=== PATIENT | male | born 1950 | race Caucasian/White ===

== ENCOUNTER → 2017-04-12 | Outpatient (CLI) | payer OTHER ==
[2017-04-12 13:00] LABS: BASO % 0.8 %; BASO ABS # 0.04 K/uL (0-0.2); COMPLETE YES; EOS % 4.9 %; HEMATOCRIT 43.3 % (42-52); IG% 0.6 %; LYMPH % 15.8 %; LYMPH ABS # 0.84 K/uL (1.2-3.4); MEAN CELL VOLUME 92.1 fL (80-100); MEAN CORPUSCULAR HEMOGLOBIN 32.1 pg (25-34); MEAN CORPUSCULAR HGB CONC 34.9 g/dl (32-36); MEAN PLATELET VOLUME 9.8 fL (7.4-10.4); MONO % 12.8 %; NEUT % 65.1 %; PLATELET COUNT 247 K/uL (130-400)
[2017-04-12 13:43] LABS: ALT/SGPT 51 U/L (12-78); AST/SGOT 31 U/L (15-37); BLOOD UREA NITROGEN 13 mg/dl (7-18); CALCIUM 8.8 mg/dl (8.5-10.1); CARBON DIOXIDE 26 mmol/L (21-32); CHLORIDE 110 mmol/L (98-107); GLUCOSE 121 mg/dl (70-99); POTASSIUM 4.6 mmol/L (3.5-5.1); SODIUM 141 mmol/L (136-145)
[2017-04-12 13:48] LABS: ALB/GLOB RATIO 0.9 (0.9-2); ALKALINE PHOSPHATASE 97 U/L (45-117); CHOLESTEROL 240 mg/dl (0-200); CHOLESTEROL/HDL RATIO 4.1; HDL CHOLESTEROL 58 mg/dl; LDL CHOLESTEROL CALCULATED 142 mg/dl; TRIGLYCERIDES 201 mg/dl (0-150); VERY LOW DENSITY LIPOPROT CALC 40 mg/dl
[2017-04-13 06:52] LABS: ESTIMATED AVERAGE GLUCOSE 117 mg/dl; HA1C FLAG Normal (Normal)
== END | disposition home or self-care (01) ==
LOC: C.LABPBG 07:56
PROVIDERS: ATTEND Internal Medicine
DX: E55.9 Vitamin D deficiency, unspecified (principal); C61 Malignant neoplasm of prostate

== ENCOUNTER 2017-08-03 10:36 | Inpatient (IN) | payer OTHER ==
[~2017-08-03] VITALS: Ht 177.8 cm; Wt 94.7 kg
--- NOTE | 2017-08-03 11:08 | EMERGENCY ROOM VISIT NOTE ---
History Report prepared by Mir: London Modi Under the Supervision of: Dr. Renzo Sanchez M.D. First contact with patient: 10:52 Chief Complaint: ABDOMINAL PAIN Stated Complaint: BELLY PAIN IN FRONT AND THEN MOVES TO SIDE Nursing Triage Summary: pt c/o bilat lower abd pain started last night. denies any n/v/d/c History of Present Illness The patient is a 67 year old male who presents to the Emergency Room with complaints of worsening abdominal pain starting yesterday morning. The patient states that he is having lower abdominal pain which started more in the middle, and it has now moved to his left side. He states that the pain is sometimes worse with walking, and he states that this pain started after drinking the dye before an MRI of his prostate. The patent denies of nausea, vomiting, urinary symptoms, recent trauma, rash, constipation, and diarrhea. The patient denies any history of kidney stones, diverticulitis, appendicitis, or any abdominal surgeries. He states that he drinks 4-5 beers per night. The patient denies any smoking, though he uses chewing tobacco. Source of History: patient Onset: yesterday morning Position: abdomen Timing: worsening Modifying Factors (Worsening): other (walking) Associated Symptoms: No nausea, No vomiting, No diarrhea, No urinary symptoms, No rash Review of Systems See HPI for pertinent positives & negatives. A total of 10 systems reviewed and were otherwise negative. Past Medical & Surgical Medical Problems: (1) Acute pancreatitis Social History Smoking Status: Never Smoker Marital Status: Housing Status: lives with family Occupation Status: employed Current/Historical Medications Scheduled Amlodipine (Norvasc), 10 MG PO DAILY Aspirin (Aspirin Ec), 81 MG PO DAILY Cholecalciferol (Vitamin D3), 1 TAB PO DAILY Omeprazole (Prilosec), 40 MG PO DAILY Valsartan (Diovan), 160 MG PO DAILY Allergies Coded Allergies: No Known Allergies (Unverified , 08/03/17) Physical Exam Vital Signs Date Time Temp Pulse Resp B/P (MAP) Pulse Ox O2 Delivery O2 Flow Rate FiO2 08/03/17 14:27 86 20 151/85 96 Room Air 08/03/17 11:47 77 20 148/96 95 Room Air 08/03/17 10:42 37.0 99 18 136/84 94 Room Air Physical Exam GENERAL: Patient is moderately uncomfortable appearing and in mild distress. HEENT: No acute trauma, normocephalic atraumatic, mucous membranes moist, no nasal congestion, no scleral icterus. NECK: No stridor, no adenopathy, no meningismus, trachea is midline. LUNGS: No dyspnea. Clear to auscultation and equal bilaterally. No wheeze, no rhonchi. HEART: Regular rate and rhythm. No murmurs, rubs, gallops appreciated. ABDOMEN: Soft, nontender, bowel sounds positive, no masses appreciated, no peritonitis. BACK: Mild left flank tenderness to palpation. No midline tenderness. EXTREMITIES: Normal motion all extremities, no cyanosis, no edema. NEUROLOGIC: Alert and oriented, no acute motor or sensory deficits, no focal weakness, cranial nerves grossly intact. SKIN: Mildly jaundice. No rash, no diaphoresis. Medical Decision & Procedures ER Provider Diagnostic Interpretation: Radiology results and stated below per my review and radiologist interpretation: ADDENDUM ADDITIONAL IMPRESSION: 6. Retroperitoneal lymphadenopathy. This is concerning either for metastatic disease in the setting of prostate cancer or other intra-abdominal malignancy versus a lymphoproliferative disease. The report will be called/faxed according to standard departmental protocol. Electronically signed by: Carlos Dover M.D. 08/03/2017 11:41 AM Dictated Date/Time: 08/03/2017 11:40 AM ORIGINAL REPORT ABD/PELVIS IV CONTRAST ONLY CLINICAL HISTORY: 67 years-old Male presenting with Left Flank Pain. TECHNIQUE: Multidetector CT of the abdomen and pelvis was performed after the administration of intravenous contrast. IV contrast: 93 mL of Optiray 320. A dose lowering technique was used consistent with the principles of ALARA (as low as reasonably achievable). COMPARISON: None. CT DOSE (mGy.cm): The estimated cumulative dose is 767.42 mGy.cm. FINDINGS: Second Class Welder topogram: Unremarkable. Lung bases: Dependent bandlike opacities likely atelectasis or scarring. Mild coronary artery calcification. Normal heart size. No pericardial or pleural effusion. Liver: Normal morphology. Hepatic steatosis. No focal lesion. Patent hepatic vasculature. Biliary: Mild intrahepatic and extra hepatic biliary ductal dilatation. Mild gallbladder wall thickening and mild gallbladder distention. Pancreas: Mild parenchymal atrophy. Mild peripancreatic fat stranding may be present. Spleen: Normal. Adrenal glands: Normal. Kidneys and ureters: Normal. No hydronephrosis. Bladder: Mild circumferential bladder wall thickening. Pelvic organs: Prostate enlargement likely secondary to benign prostatic hyperplasia. Bowel: Limited diverticulosis of the proximal sigmoid colon. Normal appendix. No bowel obstruction. Peritoneal cavity: Small amount of retroperitoneal fluid tracking along the bilateral anterior perianal spaces and peripancreatic region. Trace free intraperitoneal fluid in the superior pelvis. Lymph nodes: Multiple prominent pathologically enlarged left. Aortic lymph nodes, the largest measuring 16 mm in the short axis (series 3 image 262). Enlarged lymph nodes also noted in the peripancreatic and portacaval regions. Vasculature: Atherosclerosis of the normal caliber abdominal aorta. IVC patent. Abdominal wall: Small fat-containing of the hernia. Musculoskeletal: Degenerative changes of the spine. Bone island noted in the right femoral head. IMPRESSION: 1. Mild gallbladder wall thickening with mild distention. No significant pericholecystic fat stranding. These findings are not convincing for cholecystitis, and gallbladder wall thickening may be secondary to hepatic inflammation or another etiology. 2. Hepatic steatosis. Correlate with liver enzymes to exclude steatohepatitis. 3. Small retroperitoneal fluid which appears to track from the pancreatic region. Correlate with lipase to exclude pancreatitis. 4. No nephrolithiasis or hydronephrosis. 5. Mild circumferential bladder wall thickening, which could suggest chronic outlet obstruction or cystitis. Correlate with urinalysis. 6. Small amount of ascites, which may be reactive. Electronically signed by: Carlos Dover M.D. 08/03/2017 11:32 AM Dictated Date/Time: 08/03/2017 11:25 AM Laboratory Results 08/03/17 10:55 Red Blood Count 5.28, Mean Corpuscular Volume 91.3, Mean Corpuscular Hemoglobin 32.0, Mean Corpuscular Hemoglobin Concent 35.1, Mean Platelet Volume 9.8, Neutrophils (%) (Auto) 85.4, Lymphocytes (%) (Auto) 4.5, Monocytes (%) (Auto) 7.8, Eosinophils (%) (Auto) 1.8, Basophils (%) (Auto) 0.2, Neutrophils # (Auto) 10.73, Lymphocytes # (Auto) 0.57, Monocytes # (Auto) 0.98, Eosinophils # (Auto) 0.22, Basophils # (Auto) 0.02 08/03/17 10:55 Test 08/03/17 10:55 08/03/17 10:59 08/03/17 11:37 White Blood Count 12.56 K/uL (4.8-10.8) Red Blood Count 5.28 M/uL (4.7-6.1) Hemoglobin 16.9 g/dL (14.0-18.0) Hematocrit 48.2 % (42-52) Mean Corpuscular Volume 91.3 fL (80-100) Mean Corpuscular Hemoglobin 32.0 pg (25-34) Mean Corpuscular Hemoglobin Concent 35.1 g/dl (32-36) Platelet Count 262 K/uL (130-400) Mean Platelet Volume 9.8 fL (7.4-10.4) Neutrophils (%) (Auto) 85.4 % Lymphocytes (%) (Auto) 4.5 % Monocytes (%) (Auto) 7.8 % Eosinophils (%) (Auto) 1.8 % Basophils (%) (Auto) 0.2 % Neutrophils # (Auto) 10.73 K/uL (1.4-6.5) Lymphocytes # (Auto) 0.57 K/uL (1.2-3.4) Monocytes # (Auto) 0.98 K/uL (0.11-0.59) Eosinophils # (Auto) 0.22 K/uL (0-0.5) Basophils # (Auto) 0.02 K/uL (0-0.2) RDW Standard Deviation 43.6 fL (36.4-46.3) RDW Coefficient of Variation 13.1 % (11.5-14.5) Immature Granulocyte % (Auto) 0.3 % Immature Granulocyte # (Auto) 0.04 K/uL (0.00-0.02) Prothrombin Time 11.4 SECONDS (9.0-12.0) Prothromb Time International Ratio 1.1 (0.9-1.1) Est Creatinine Clear Calc Drug Dose 68.9 ml/min Estimated GFR () 70.3 Estimated GFR (Non- 60.6 BUN/Creatinine Ratio 10.3 (10-20) Calcium Level 9.2 mg/dl (8.5-10.1) Magnesium Level 2.5 mg/dl (1.8-2.4) Total Bilirubin 6.1 mg/dl (0.2-1) Direct Bilirubin 4.3 mg/dl (0-0.2) Aspartate Amino Transf (AST/SGOT) 558 U/L (15-37) Alanine Aminotransferase (ALT/SGPT) 589 U/L (12-78) Alkaline Phosphatase 241 U/L (45-117) Total Protein 8.3 gm/dl (6.4-8.2) Albumin 3.6 gm/dl (3.4-5.0) Lipase 86284 U/L (73-393) Bedside Hemoglobin 17.3 g/dl (14.0-18.0) Bedside Hematocrit 51 % (42-52) Bedside Sodium 140 mEq/L (135-144) Bedside Potassium 4.1 mEq/L (3.3-5.0) Bedside Chloride 104 mEq/L (101-112) Bedside Total CO2 24 mEq/l (24-31) Anion Gap 18.0 mmol/L (16-25) Bedside Blood Urea Nitrogen 14 mg/dl (7-18) Bedside Creatinine 1.1 mg/dl (0.6-1.3) Bedside Glucose (other) 142 mg/dl (70-99) Bedside Ionized Calcium (Jennifer) 1.17 mmol/l (1.12-1.32) Urine Color DK YELLOW Urine Appearance CLEAR (CLEAR) Urine pH 7.0 (4.5-7.5) Urine Specific [place] 1.037 (1.000-1.030) Urine Protein 1+ (NEG) Urine Glucose (UA) NEG (NEG) Urine Ketones TRACE (NEG) Urine Occult Blood NEG (NEG) Urine Nitrite POS (NEG) Urine Bilirubin 2+ (NEG) Urine Urobilinogen NEG (NEG) Urine Leukocyte Esterase TRACE (NEG) Urine WBC (Auto) 1-5 /hpf (0-5) Urine RBC (Auto) 0-4 /hpf (0-4) Urine Hyaline Casts (Auto) 0 /lpf (0-5) Urine Epithelial Cells (Auto) 0-5 /lpf (0-5) Urine Bacteria (Auto) NEG (NEG) Laboratory results as reviewed by me. Medications Administered Medications (Trade) Dose Ordered Sig/Elyse Route Start Time Stop Time Status Last Admin Dose Admin Sodium Chloride 1,000 ml @ 75 mls/hr [id number] STAT IV 08/03/17 11:48 08/04/17 01:07 08/03/17 12:06 75 MLS/HR Cefoxitin Sodium 2000 mg/Dextrose 60 ml @ 120 mls/hr 1200 ONCE IV 08/03/17 12:00 08/03/17 12:29 DC 08/03/17 12:06 120 MLS/HR ED Course 1052: The patient was evaluated in room C5. A complete history and physical exam was performed. 1135: I reevaluated the patient and discussed the treatment plan with him. 1140: Discussed the patient's case with Dr. Ocampo. The patient will be evaluated for further treatment and disposition. 1148: Sodium Chloride 1000 ml @ 75 mls/hr IV 1200: Cefoxitin Sodium 2000mg/ Dextrose 60ml @ 120mls/hr IV 1254: I discussed the patient's case with LIANE Neal, and he is going to talk to the hospitalist. Medical Decision Differential: Renal Colic, Pyelonephritis, Hydronephrosis, Appendicitis, Diverticulitis, Retroperitoneal Bleed/Infection, Aortic Pathology, MSK, Neurologic Pathology, amongst other pathologies entertained. 67 yr old male with central abdominal pain yesterday now with left flank discomfort. CT with pancreatitis and some fluid retroperitoneal consistent with this. Labs consistent with pancreatitis as well as hepatitis. Admits regular ETOH use. Mild WBC elevation and with possible GB/biliary issue will empirically give abx. He doesn't require pain medications though with constilation of findings will need to come in for further evaluation. No hypotension nor anemia nor other evidence to suggest this is blood in retroperitoneal. No abscess appreciated. The lymphadenopathy on CT was read after already discussed findings with patient and hospitalist involved. Obviously CA concern and with pancreatic abnormalities, jaundice and lymph nodes will clearly need further CA work-up and will defer to hospitalist. Patient stable throughout ED stay. Medication Reconcilliation Current Medication List: was personally reviewed by me Blood Pressure Screening Patient's blood pressure: Elevated blood pressure Monitored by the hospitalist. Consults Time Called: 1123 Consulting Physician: Dr. Ocampo Returned Call: [phone] Discussed the patient's case with Dr. Ocampo. The patient will be evaluated for further treatment and disposition. Additional Consults: Time Called: 1233 Consulted Physician: LIANE Neal Returned Call: [phone] Additional Comments: I discussed the patient's case with LIANE Neal, and he is going to talk to the hospitalist. Impression Primary Impression: Pancreatitis Additional Impressions: Retroperitoneal fluid collection Abdominal lymphadenopathy Scribe Attestation The scribe's documentation has been prepared under my direction and personally reviewed by me in its entirety. I confirm that the note above accurately reflects all work, treatment, procedures, and medical decision making performed by me. Departure Information Dispostion Being Evaluated By Hospitalist Referrals Carlos Bojorquez M.D. (PCP) Patient Instructions My [facility] Problem Qualifiers
[2017-08-03 11:11] LABS: ISTAT CREATININE 1.1 mg/dl (0.6-1.3); ISTAT HEMOGLOBIN 17.3 g/dl (14.0-18.0); ISTAT IONIZED CALCIUM 1.17 mmol/l (1.12-1.32)
[2017-08-03] MEDS ORDERED: OPTIRAY 320 IV PRN (11:15)
[2017-08-03 11:16] LABS: BASO % 0.2 %; BASO ABS # 0.02 K/uL (0-0.2); COMPLETE YES; EOS % 1.8 %; HEMATOCRIT 48.2 % (42-52); IG% 0.3 %; LYMPH % 4.5 %; LYMPH ABS # 0.57 K/uL (1.2-3.4); MEAN CELL VOLUME 91.3 fL (80-100); MEAN CORPUSCULAR HGB CONC 35.1 g/dl (32-36); MEAN PLATELET VOLUME 9.8 fL (7.4-10.4); MONO % 7.8 %; NEUT % 85.4 %; PLATELET COUNT 262 K/uL (130-400); RED BLOOD COUNT 5.28 M/uL (4.7-6.1); WHITE BLOOD COUNT 12.56 K/uL (4.8-10.8)
[2017-08-03] MEDS ORDERED: AMLO-114 PO (11:19)
[2017-08-03] MEDS ORDERED: CHOL1000 PO (11:19)
[2017-08-03] MEDS ORDERED: OMEP40CA41 PO (11:19)
[2017-08-03] MEDS ORDERED: ASPI81TA28 PO (11:19)
[2017-08-03] MEDS ORDERED: DVN/160 PO (11:19)
[2017-08-03 11:32] LABS: BUN/CREATININE RATIO 10.3 (10-20); CALCIUM 9.2 mg/dl (8.5-10.1); CREATININE 1.24 mg/dl (0.60-1.40)
--- NOTE | 2017-08-03 11:34 | DIAGNOSTIC IMAGING REPORT ---
ADDENDUM ADDITIONAL IMPRESSION: 6. Retroperitoneal lymphadenopathy. This is concerning either for metastatic disease in the setting of prostate cancer or other intra-abdominal malignancy versus a lymphoproliferative disease. The report will be called/faxed according to standard departmental protocol. Electronically signed by: Carlos Dover M.D. 08/03/2017 11:41 AM Dictated Date/Time: 08/03/2017 11:40 AM ORIGINAL REPORT ABD/PELVIS IV CONTRAST ONLY CLINICAL HISTORY: 67 years-old Male presenting with Left Flank Pain. TECHNIQUE: Multidetector CT of the abdomen and pelvis was performed after the administration of intravenous contrast. IV contrast: 93 mL of Optiray 320. A dose lowering technique was used consistent with the principles of ALARA (as low as reasonably achievable). COMPARISON: None. CT DOSE (mGy.cm): The estimated cumulative dose is 767.42 mGy.cm. FINDINGS: Drafter Structural topogram: Unremarkable. Lung bases: Dependent bandlike opacities likely atelectasis or scarring. Mild coronary artery calcification. Normal heart size. No pericardial or pleural effusion. Liver: Normal morphology. Hepatic steatosis. No focal lesion. Patent hepatic vasculature. Biliary: Mild intrahepatic and extra hepatic biliary ductal dilatation. Mild gallbladder wall thickening and mild gallbladder distention. Pancreas: Mild parenchymal atrophy. Mild peripancreatic fat stranding may be present. Spleen: Normal. Adrenal glands: Normal. Kidneys and ureters: Normal. No hydronephrosis. Bladder: Mild circumferential bladder wall thickening. Pelvic organs: Prostate enlargement likely secondary to benign prostatic hyperplasia. Bowel: Limited diverticulosis of the proximal sigmoid colon. Normal appendix. No bowel obstruction. Peritoneal cavity: Small amount of retroperitoneal fluid tracking along the bilateral anterior perianal spaces and peripancreatic region. Trace free intraperitoneal fluid in the superior pelvis. Lymph nodes: Multiple prominent pathologically enlarged left. Aortic lymph nodes, the largest measuring 16 mm in the short axis (series 3 image 262). Enlarged lymph nodes also noted in the peripancreatic and portacaval regions. Vasculature: Atherosclerosis of the normal caliber abdominal aorta. IVC patent. Abdominal wall: Small fat-containing of the hernia. Musculoskeletal: Degenerative changes of the spine. Bone island noted in the right femoral head. IMPRESSION: 1. Mild gallbladder wall thickening with mild distention. No significant pericholecystic fat stranding. These findings are not convincing for cholecystitis, and gallbladder wall thickening may be secondary to hepatic inflammation or another etiology. 2. Hepatic steatosis. Correlate with liver enzymes to exclude steatohepatitis. 3. Small retroperitoneal fluid which appears to track from the pancreatic region. Correlate with lipase to exclude pancreatitis. 4. No nephrolithiasis or hydronephrosis. 5. Mild circumferential bladder wall thickening, which could suggest chronic outlet obstruction or cystitis. Correlate with urinalysis. 6. Small amount of ascites, which may be reactive. Electronically signed by: Carlos Dover M.D. 08/03/2017 11:32 AM Dictated Date/Time: 08/03/2017 11:25 AM
[2017-08-03] MEDS ORDERED: CEFOXITIN 2000MG/60 ML D5W IV STA (11:40)
[2017-08-03] MEDS ORDERED: SODIUM CHLORIDE 0.9% 1000ML 1,000 ML IV STA (11:48)
[2017-08-03 11:52] LABS: URINE APPEARANCE CLEAR (CLEAR); URINE COLOR DK YELLOW; URINE EPITHELIAL CELL AUTO 0-5 /lpf (0-5); URINE NITRITE POS (NEG); URINE SPECIFIC GRAVITY 1.037 (1.000-1.030); UROBILINOGEN NEG (NEG); ZZUR CULT IF INDIC CLEAN CATCH NO
[2017-08-03 11:59] LABS: MANUAL MICROSCOPIC REQUIRED? NO; REVIEW REQ? NO; URINE BILIRUBIN 2+ (NEG)
[2017-08-03] MEDS ORDERED: CEFOXITIN IV 2,000 MG in DEXTROSE 5% 50ML 50 ML IV ONE (12:00)
[2017-08-03 13:17] LABS: INR 1.1 (0.9-1.1); PROTHROMBIN TIME (PATIENT) 11.4 SECONDS (9.0-12.0)
[2017-08-03] MEDS ORDERED: SODIUM CHLORIDE 0.9% 1000ML 1,000 ML IV ONE (13:30)
[2017-08-03] MEDS ORDERED: LACTATED RINGER'S 1000ML 1,000 ML IV ONE ×2 (13:45→15:00)
--- NOTE | 2017-08-03 14:03 | History and Physical ---
History & Physical Date & Time of Service: Aug 03, 2017 at 14:02 Chief Complaint: Belly Pain In Front And Then Moves To Side Primary Care Physician: Carlos Bojorquez M.D. History of Present Illness Source: patient, family, spouse 67 year old male with history of abdominal pain in the past 24 hours, which has gradually been worsening. Pain is severe, sharp, constant, periumbilical and radiates to the back. Patient reports that the last time patient ate was on . Patient states that he drinks alcohol daily and has about a 6-pack of 12 onz. beers daily. This has been ongoing for years Patient had nausea and vomiting on Saturday. Pain worsened today and patient opted to come to hospital. Patient denies any hematemesis, melena, dizziness Past Medical/Surgical History 1) Alcohol abuse Family History non-contributory Social History Smoking Status: Never Smoker (Patient chews tobacoo) Smokeless Tobacco Use: Yes (chews smokeless tobacco) Marital Status: Occupational Status: employed Immunizations History of Influenza Vaccine: Unknown History of Tetanus Vaccine?: Unknown History of Pneumococcal: Unknown History of Hepatitis B Vaccine: Unknown Multi-Drug Resistant Organisms History of MDRO: No Allergies Coded Allergies: No Known Allergies (Unverified , 08/03/17) Home Medications Scheduled Amlodipine (Norvasc), 10 MG PO DAILY Aspirin (Aspirin Ec), 81 MG PO DAILY Cholecalciferol (Vitamin D3), 1 TAB PO DAILY Omeprazole (Prilosec), 40 MG PO DAILY Valsartan (Diovan), 160 MG PO DAILY Review of Systems Constitutional: No fever, No chills Eyes: No worsening of vision Respiratory: No cough, No sputum Cardiovascular: No chest pain Abdomen: + pain, + nausea, + vomiting Musculoskeletal: No joint pain Neurologic: No memory loss, No paralysis Endocrine: No fatigue Integumentary: No rash, No itch Physical Exam Vital Signs Date Time Temp Pulse Resp B/P (MAP) Pulse Ox O2 Delivery O2 Flow Rate FiO2 08/03/17 11:47 77 20 148/96 95 Room Air 08/03/17 10:42 37.0 99 18 136/84 94 Room Air General Appearance: WD/WN, no apparent distress Head: normocephalic, atraumatic Eyes: + pertinent finding (jaundiced sclerae) Neck: supple, no adenopathy, thyroid normal Respiratory/Chest: chest non-tender, lungs clear, normal breath sounds Cardiovascular: regular rate, rhythm, no edema Abdomen/GI: normal bowel sounds, non tender, soft Skin: normal color Lymphatic: no adenopathy Diagnostics Laboratory Results Results Past 24 Hours Test 08/03/17 10:55 08/03/17 10:59 08/03/17 11:37 Range/Units White Blood Count 12.56 4.8-10.8 K/uL Red Blood Count 5.28 4.7-6.1 M/uL Hemoglobin 16.9 14.0-18.0 g/dL Hematocrit 48.2 42-52 % Mean Corpuscular Volume 91.3 80-100 fL Mean Corpuscular Hemoglobin 32.0 25-34 pg Mean Corpuscular Hemoglobin Concent 35.1 32-36 g/dl Platelet Count 262 130-400 K/uL Mean Platelet Volume 9.8 7.4-10.4 fL Neutrophils (%) (Auto) 85.4 % Lymphocytes (%) (Auto) 4.5 % Monocytes (%) (Auto) 7.8 % Eosinophils (%) (Auto) 1.8 % Basophils (%) (Auto) 0.2 % Neutrophils # (Auto) 10.73 1.4-6.5 K/uL Lymphocytes # (Auto) 0.57 1.2-3.4 K/uL Monocytes # (Auto) 0.98 0.11-0.59 K/uL Eosinophils # (Auto) 0.22 0-0.5 K/uL Basophils # (Auto) 0.02 0-0.2 K/uL RDW Standard Deviation 43.6 36.4-46.3 fL RDW Coefficient of Variation 13.1 11.5-14.5 % Immature Granulocyte % (Auto) 0.3 % Immature Granulocyte # (Auto) 0.04 0.00-0.02 K/uL Prothrombin Time 11.4 9.0-12.0 SECONDS Prothromb Time International Ratio 1.1 0.9-1.1 Sodium Level 138 136-145 mmol/L Potassium Level 4.0 3.5-5.1 mmol/L Chloride Level 106 98-107 mmol/L Carbon Dioxide Level 23 21-32 mmol/L Anion Gap 9.0 18.0 16-25 mmol/L Blood Urea Nitrogen 13 7-18 mg/dl Creatinine 1.24 0.60-1.40 mg/dl Est Creatinine Clear Calc Drug Dose 68.9 ml/min Estimated GFR () 70.3 Estimated GFR (Non- 60.6 BUN/Creatinine Ratio 10.3 10-20 Random Glucose 136 70-99 mg/dl Calcium Level 9.2 8.5-10.1 mg/dl Total Bilirubin 6.1 0.2-1 mg/dl Direct Bilirubin 4.3 0-0.2 mg/dl Aspartate Amino Transf (AST/SGOT) 558 15-37 U/L Alanine Aminotransferase (ALT/SGPT) 589 12-78 U/L Alkaline Phosphatase 241 45-117 U/L Total Protein 8.3 6.4-8.2 gm/dl Albumin 3.6 3.4-5.0 gm/dl Lipase 73716 73-393 U/L Bedside Hemoglobin 17.3 14.0-18.0 g/dl Bedside Hematocrit 51 42-52 % Bedside Sodium 140 135-144 mEq/L Bedside Potassium 4.1 3.3-5.0 mEq/L Bedside Chloride 104 101-112 mEq/L Bedside Total CO2 24 24-31 mEq/l Bedside Blood Urea Nitrogen 14 7-18 mg/dl Bedside Creatinine 1.1 0.6-1.3 mg/dl Bedside Glucose (other) 142 70-99 mg/dl Bedside Ionized Calcium (Jennifer) 1.17 1.12-1.32 mmol/l Urine Color DK YELLOW Urine Appearance CLEAR CLEAR Urine pH 7.0 4.5-7.5 Urine Specific [place] 1.037 1.000-1.030 Urine Protein 1+ NEG Urine Glucose (UA) NEG NEG Urine Ketones TRACE NEG Urine Occult Blood NEG NEG Urine Nitrite POS NEG Urine Bilirubin 2+ NEG Urine Urobilinogen NEG NEG Urine Leukocyte Esterase TRACE NEG Urine WBC (Auto) 1-5 0-5 /hpf Urine RBC (Auto) 0-4 0-4 /hpf Urine Hyaline Casts (Auto) 0 0-5 /lpf Urine Epithelial Cells (Auto) 0-5 0-5 /lpf Urine Bacteria (Auto) NEG NEG Diagnostic Radiology ADDENDUM ADDITIONAL IMPRESSION: 6. Retroperitoneal lymphadenopathy. This is concerning either for metastatic disease in the setting of prostate cancer or other intra-abdominal malignancy versus a lymphoproliferative disease. The report will be called/faxed according to standard departmental protocol. Electronically signed by: Carlos Dover M.D. 08/03/2017 11:41 AM Dictated Date/Time: 08/03/2017 11:40 AM ORIGINAL REPORT ABD/PELVIS IV CONTRAST ONLY CLINICAL HISTORY: 67 years-old Male presenting with Left Flank Pain. TECHNIQUE: Multidetector CT of the abdomen and pelvis was performed after the administration of intravenous contrast. IV contrast: 93 mL of Optiray 320. A dose lowering technique was used consistent with the principles of ALARA (as low as reasonably achievable). COMPARISON: None. CT DOSE (mGy.cm): The estimated cumulative dose is 767.42 mGy.cm. FINDINGS: Acrylic Fabricator topogram: Unremarkable. Lung bases: Dependent bandlike opacities likely atelectasis or scarring. Mild coronary artery calcification. Normal heart size. No pericardial or pleural effusion. Liver: Normal morphology. Hepatic steatosis. No focal lesion. Patent hepatic vasculature. Biliary: Mild intrahepatic and extra hepatic biliary ductal dilatation. Mild gallbladder wall thickening and mild gallbladder distention. Pancreas: Mild parenchymal atrophy. Mild peripancreatic fat stranding may be present. Spleen: Normal. Adrenal glands: Normal. Kidneys and ureters: Normal. No hydronephrosis. Bladder: Mild circumferential bladder wall thickening. Pelvic organs: Prostate enlargement likely secondary to benign prostatic hyperplasia. Bowel: Limited diverticulosis of the proximal sigmoid colon. Normal appendix. No bowel obstruction. Peritoneal cavity: Small amount of retroperitoneal fluid tracking along the bilateral anterior perianal spaces and peripancreatic region. Trace free intraperitoneal fluid in the superior pelvis. Lymph nodes: Multiple prominent pathologically enlarged left. Aortic lymph nodes, the largest measuring 16 mm in the short axis (series 3 image 262). Enlarged lymph nodes also noted in the peripancreatic and portacaval regions. Vasculature: Atherosclerosis of the normal caliber abdominal aorta. IVC patent. Abdominal wall: Small fat-containing of the hernia. Musculoskeletal: Degenerative changes of the spine. Bone island noted in the right femoral head. IMPRESSION: 1. Mild gallbladder wall thickening with mild distention. No significant pericholecystic fat stranding. These findings are not convincing for cholecystitis, and gallbladder wall thickening may be secondary to hepatic inflammation or another etiology. 2. Hepatic steatosis. Correlate with liver enzymes to exclude steatohepatitis. 3. Small retroperitoneal fluid which appears to track from the pancreatic region. Correlate with lipase to exclude pancreatitis. 4. No nephrolithiasis or hydronephrosis. 5. Mild circumferential bladder wall thickening, which could suggest chronic outlet obstruction or cystitis. Correlate with urinalysis. 6. Small amount of ascites, which may be reactive. Electronically signed by: Carlos Dover M.D. 08/03/2017 11:32 AM Dictated Date/Time: 08/03/2017 11:25 AM The status of this report is Signed. Draft = Not yet reviewed or approved by Radiologist. Signed = Reviewed and approved by Radiologist. <AttendingPhy></AttendingPhy> <FamilyPhy>Carlos Bojorquez M.D.</FamilyPhy> < PrimaryPhy>Carlos Bojorquez M.D.</PrimaryPhy> <UnitNumber>[id number]</UnitNumber> <VisitNumber>[id number]</VisitNumber Impression Assessment and Plan Acute pancreatitis in a 67 year old male with hisotry of alcohol abuse. Admit to tele. [place] score is 5. will give aggressive fluids with goal of .5 to 1ml/k/hr of urine will have patient NPO. monitor I's and O'S no need for antibiotics at this time. Consulted GI. Obtaind MRCP which was negative. Alcohol abuse CIWA scale on patient. HTN will hold oral meds and will have patient on PRN Labetalol Level of Care Telemetry Advanced Directives Existing Advance Directive: No Existing Living Will: No Existing Power of Maintenance Director: No Existing Health Care Proxy: No Resuscitation Status FULL RESUSCITATION VTE Prophylaxis VTE Risk Assessment Done? Y/N: Yes Risk Level: Moderate Given or contraindicated: Enoxaparin (Lovenox)SQ Social Service Consult Lives in Personal Care
--- NOTE | 2017-08-03 15:02 | Gastrointestinal Consultation ---
Gastrointestinal Consultation Date of Consultation: Aug 03, 2017 Attending Physician: DR Simon Ocampo Consulting Physician: Dr Cheko Salomon Reason for Consultation: hepatitis and pancreatitis History of Present Illness Patient is a 67 year old male with CC of abd pain. HPI with patient. Pt drinks 4-5 beers/day and more on weekends. No data in [facility] chart. Data in [facility] EMR shows LFTS done 04/12/17 normal. Pt recent diagnosis of prostate cancer apparently small amount on biopsy. Pt yesterday am developed abd pain. Came on quickly and persisted. Was around umbilicus then lower abd pain. Was up to 7-8/ . Some cough today. No n/v. In ER CBC showed WBC 12.56 o/w normal. Lipase 17,965. CMP TB 6.1, AST 558, ALT 589, Alk phos 241. PT INR normal. CT A/P retroperitoneal adenopathy concerning for mets, fatty liver, mildly dilated bile duct, mild GB thickening, fat stranding of pancreas, diverticulosis, bladder thickening, small ascites. MRCP done with results pending. Past Medical/Surgical History Medical Problems: (1) Abdominal lymphadenopathy Status: Acute (2) Pancreatitis Status: Acute (3) Retroperitoneal fluid collection Status: Acute Family History no pancreas or liver problems per patient Social History Smoking Status: Never Smoker Alcohol Use: other (4-5/day and heavier on weekends) Marital Status: Housing Status: lives with family Occupation Status: employed Allergies Coded Allergies: No Known Allergies (Unverified , 08/03/17) Current Medications Home Meds and Scripts Medications Dose Route/Sig Max Daily Dose Days Date Category Vitamin D3 (Cholecalciferol) Unknown Strength Tab 1 Tab PO DAILY 90 08/03/17 Reported Diovan (Valsartan) 160 Mg Tab 160 Mg PO DAILY 08/03/17 Reported Prilosec (Omeprazole) 40 Mg Cap 40 Mg PO DAILY 08/03/17 Reported Aspirin Ec (Aspirin) 81 Mg Tab 81 Mg PO DAILY 08/03/17 Reported Norvasc (Amlodipine Besylate) 10 Mg Tab 10 Mg PO DAILY 08/03/17 Reported Review of Systems See HPI. Otherwise 10 ROS negative Physical Exam Date Time Temp Pulse Resp B/P (MAP) Pulse Ox O2 Delivery O2 Flow Rate FiO2 08/03/17 14:27 86 20 151/85 96 Room Air 08/03/17 11:47 77 20 148/96 95 Room Air 08/03/17 10:42 37.0 99 18 136/84 94 Room Air General Appearance: WD/WN, no apparent distress Eyes: PERRL ENT: hearing grossly normal, pharynx normal Neck: supple, trachea midline Respiratory/Chest: lungs clear, no respiratory distress Cardiovascular: regular rate, rhythm, no edema Abdomen: normal bowel sounds, soft, no organomegaly, no pulsatile mass, + tenderness (epigastric guarding but no rebound, ) Extremities: non-tender, normal inspection Neurologic/Psych: branch director II-XII nml as tested, alert, normal mood/affect, oriented x 3 Skin: normal color, no rash Laboratory Results Last 24 Hours Test 08/03/17 10:55 08/03/17 10:59 08/03/17 11:37 White Blood Count 12.56 K/uL Red Blood Count 5.28 M/uL Hemoglobin 16.9 g/dL Hematocrit 48.2 % Mean Corpuscular Volume 91.3 fL Mean Corpuscular Hemoglobin 32.0 pg Mean Corpuscular Hemoglobin Concent 35.1 g/dl Platelet Count 262 K/uL Mean Platelet Volume 9.8 fL Neutrophils (%) (Auto) 85.4 % Lymphocytes (%) (Auto) 4.5 % Monocytes (%) (Auto) 7.8 % Eosinophils (%) (Auto) 1.8 % Basophils (%) (Auto) 0.2 % Neutrophils # (Auto) 10.73 K/uL Lymphocytes # (Auto) 0.57 K/uL Monocytes # (Auto) 0.98 K/uL Eosinophils # (Auto) 0.22 K/uL Basophils # (Auto) 0.02 K/uL RDW Standard Deviation 43.6 fL RDW Coefficient of Variation 13.1 % Immature Granulocyte % (Auto) 0.3 % Immature Granulocyte # (Auto) 0.04 K/uL Prothrombin Time 11.4 SECONDS Prothromb Time International Ratio 1.1 Sodium Level 138 mmol/L Potassium Level 4.0 mmol/L Chloride Level 106 mmol/L Carbon Dioxide Level 23 mmol/L Anion Gap 9.0 mmol/L 18.0 mmol/L Blood Urea Nitrogen 13 mg/dl Creatinine 1.24 mg/dl Est Creatinine Clear Calc Drug Dose 68.9 ml/min Estimated GFR () 70.3 Estimated GFR (Non- 60.6 BUN/Creatinine Ratio 10.3 Random Glucose 136 mg/dl Calcium Level 9.2 mg/dl Magnesium Level 2.5 mg/dl Total Bilirubin 6.1 mg/dl Direct Bilirubin 4.3 mg/dl Aspartate Amino Transf (AST/SGOT) 558 U/L Alanine Aminotransferase (ALT/SGPT) 589 U/L Alkaline Phosphatase 241 U/L Total Protein 8.3 gm/dl Albumin 3.6 gm/dl Lipase 51749 U/L Bedside Hemoglobin 17.3 g/dl Bedside Hematocrit 51 % Bedside Sodium 140 mEq/L Bedside Potassium 4.1 mEq/L Bedside Chloride 104 mEq/L Bedside Total CO2 24 mEq/l Bedside Blood Urea Nitrogen 14 mg/dl Bedside Creatinine 1.1 mg/dl Bedside Glucose (other) 142 mg/dl Bedside Ionized Calcium (Jennifer) 1.17 mmol/l Urine Color DK YELLOW Urine Appearance CLEAR Urine pH 7.0 Urine Specific [place] 1.037 Urine Protein 1+ Urine Glucose (UA) NEG Urine Ketones TRACE Urine Occult Blood NEG Urine Nitrite POS Urine Bilirubin 2+ Urine Urobilinogen NEG Urine Leukocyte Esterase TRACE Urine WBC (Auto) 1-5 /hpf Urine RBC (Auto) 0-4 /hpf Urine Hyaline Casts (Auto) 0 /lpf Urine Epithelial Cells (Auto) 0-5 /lpf Urine Bacteria (Auto) NEG Impression Pancreatitis--could be from ETOH but check MRCP for bile duct pathology, check Triglyceride level, NPO, Discussed with Dr Isidro very important to give large volumes of IVF to ensure urine output of 0.5 ml/kg/hour or better (50 ml/ hour) to help prevent necrotizing pancreatitis. Discussed with him also that LR may be somewhat better than NS. elevated LFTS--could be alcoholic hepatitis, also would check CMV, mono, acute hep panel, check stat acetaminophen level retroperitoneal adenopathy--no primary cancer noted on CT scan, see what MRI shows. ascites--not enough to tap prostate cancer--MRI of prostate 07/30 no obvious mass so would be less likely thsi is cause of retroperitoneal adenopathy---w/u per primary team. .
--- NOTE | 2017-08-03 16:10 | DIAGNOSTIC IMAGING REPORT ---
MRCP CLINICAL HISTORY: 67 years-old Male presenting with alcohol hepatitis, nausea and vomiting, abdominal pain. TECHNIQUE: Multisequence, multiplanar MR imaging of the abdomen was performed without the use of intravenous contrast. IV contrast: None. COMPARISON: CT performed earlier the same day. FINDINGS: Localizer images: Unremarkable. Lung bases: Minimal dependent changes. Normal heart size. No pericardial or pleural effusion. Liver: Normal morphology. Biliary: The right anterior hepatic duct inserts onto the left hepatic duct for joining subsequently with the right posterior hepatic duct. Conventional insertion of the cystic duct. Mild intrahepatic and extra hepatic biliary ductal dilatation. The common duct measures 12 mm at the level of the midportion. No obstructing calculus or mass. Mild gallbladder wall thickening and mild gallbladder distention. No gallstones. Pancreas: Mild parenchymal atrophy. Mild prominence of the pancreatic duct at the level of the pancreatic head and neck. Trace peripancreatic fat stranding may be present. Spleen: Normal. Adrenal glands: Normal. Kidneys and ureters: Normal. No hydronephrosis. Bowel: No bowel obstruction. Peritoneal cavity: Small amount of retroperitoneal fluid. Lymph nodes: Multiple prominent pathologically enlarged left periaortic lymph nodes. Vasculature: Aorta and IVC with normal flow related enhancement. Abdominal wall: Unremarkable. Musculoskeletal: Normal bone marrow signal intensity. IMPRESSION: 1. Grossly normal appearance of the liver allowing for noncontrast technique. This does not exclude the diagnosis of hepatitis. 2. Gallbladder wall thickening likely secondary to the reported alcohol hepatitis. 3. No cholelithiasis or choledocholithiasis. 4. Intrahepatic and hepatic biliary ductal dilatation with mild pancreatic ductal prominence. No obstructing calculus or mass. This may be due to a benign stricture or inflammation at the level of the ampulla Vater. 5. Small amount of retroperitoneal fluid may emanate from the pancreatic bed. Correlate with lipase to exclude interstitial edematous pancreatitis. Electronically signed by: Carlos Dover M.D. 08/03/2017 4:08 PM Dictated Date/Time: 08/03/2017 4:00 PM
[2017-08-03 17:30] VITALS: BP 159/82; PULSE 81; TEMP 37.6; O2SAT 95; Ht 177.8 cm; Wt 94.7 kg
[2017-08-03] MEDS ORDERED: NICOTINE 21 MG/24 HR TDSY TD SCH (17:45)
[2017-08-03] MEDS: LACTATED RINGER'S 1000ML 1,000 ML IV SCH ×2 (18:05→20:47)
[2017-08-03] MEDS: ENOXAPARIN 40 MG/0.4 ML SYR SQ SCH (18:09)
--- NOTE | 2017-08-03 18:32 | DIAGNOSTIC IMAGING REPORT ---
CHEST ONE VIEW PORTABLE CLINICAL HISTORY: 67 years-old Male presenting with sob, cough. TECHNIQUE: Portable upright AP view of the chest was obtained. COMPARISON: None. FINDINGS: Cardiomediastinal silhouette normal. Mildly low lung volumes with hypoventilatory changes. Vague bibasilar opacities suggested. No large effusion or pneumothorax. Old left rib fracture noted. Upper abdomen normal. IMPRESSION: 1. Vague bibasilar opacities likely atelectasis. Electronically signed by: Carlos Dover M.D. 08/03/2017 6:31 PM Dictated Date/Time: 08/03/2017 6:30 PM
[2017-08-03 18:40] LABS: BUN/CREATININE RATIO 9.7 (10-20); CALCIUM 8.8 mg/dl (8.5-10.1); CREATININE 1.23 mg/dl (0.60-1.40); POTASSIUM 3.9 mmol/L (3.5-5.1)
[2017-08-03 19:36] VITALS: BP 171/81; PULSE 81; TEMP 38.9; O2SAT 93
[2017-08-03] MEDS ORDERED: ACETAMINOPHEN IV 650 MG in EMPTY BAG 0 ML IV PRN (20:30)
[2017-08-03] MEDS ORDERED: LABETALOL HCL IV 5 MG/ML 20ML IV STA (23:21)
[2017-08-03 23:27] VITALS: BP 155/81; PULSE 71; TEMP 37; O2SAT 95
[2017-08-03] MEDS ORDERED: AMLODIPINE BESYLATE 5 MG TAB PO ONE (23:30)
[2017-08-04] MEDS: LACTATED RINGER'S 1000ML 1,000 ML IV SCH ×3 (01:39→19:53)
[2017-08-04 03:54] VITALS: BP 156/81; PULSE 80; TEMP 36.9; O2SAT 94
[2017-08-04 07:18] LABS: BASO % 0.5 %; BASO ABS # 0.04 K/uL (0-0.2); COMPLETE YES; EOS % 4.3 %; HEMATOCRIT 39.4 % (42-52); IG% 0.2 %; LYMPH % 5.8 %; LYMPH ABS # 0.49 K/uL (1.2-3.4); MEAN CELL VOLUME 91.6 fL (80-100); MEAN CORPUSCULAR HEMOGLOBIN 31.9 pg (25-34); MEAN CORPUSCULAR HGB CONC 34.8 g/dl (32-36); MEAN PLATELET VOLUME 9.7 fL (7.4-10.4); MONO % 8.8 %; NEUT % 80.4 %; PLATELET COUNT 182 K/uL (130-400); WHITE BLOOD COUNT 8.38 K/uL (4.8-10.8)
[2017-08-04 07:28] LABS: INR 1.1 (0.9-1.1); PROTHROMBIN TIME (PATIENT) 11.8 SECONDS (9.0-12.0)
[2017-08-04 07:46] LABS: BUN/CREATININE RATIO 11.2 (10-20); CALCIUM 8.9 mg/dl (8.5-10.1); CREATININE 0.99 mg/dl (0.60-1.40); POTASSIUM 3.7 mmol/L (3.5-5.1)
[2017-08-04 07:49] VITALS: BP 163/88; PULSE 74; TEMP 37.1; O2SAT 94
[2017-08-04 07:57] LABS: CHOLESTEROL/HDL RATIO 4.2
[2017-08-04 07:58] LABS: ALB/GLOB RATIO 0.7 (0.9-2)
[2017-08-04] MEDS: ASPIRIN 81 MG ECTAB PO SCH (09:00)
[2017-08-04] MEDS: NICOTINE 21 MG/24 HR TDSY TD SCH (09:43)
[2017-08-04 11:58] VITALS: BP 149/80; PULSE 68; TEMP 37.1; O2SAT 98
[2017-08-04] MEDS ORDERED: LORAZEPAM 2 MG/ML 1 ML VIAL IV PRN (12:00)
--- NOTE | 2017-08-04 14:00 | Gastroenterology Progress Note ---
Progress Note Date of Service: Aug 04, 2017 Subjective Pt evaluation today including: conversation w/ patient, conversation w/ family (), physical exam, chart review, lab review, review of studies, review of inpatient medication list CC f/u pancreatitis HPI Pt states abd pain has improved quite a bit. No N/V. Review of Systems Respiratory: No shortness of breath Cardiac: No chest pain Medications Current Inpatient Medications Medications (Trade) Dose Ordered Sig/Elyse Route Start Time Stop Time Status Last Admin Dose Admin Ioversol (Optiray 320) 100 ml UD PRN IV 08/03/17 11:15 08/07/17 11:14 Aspirin (Ecotrin Tab) 81 mg DAILY PO 08/04/17 09:00 09/03/17 08:59 Enoxaparin Sodium (Lovenox Inj) 40 mg Q24H SQ 08/03/17 18:00 09/02/17 17:59 08/03/17 18:09 40 MG Lactated Ringer's 1,000 ml @ 150 mls/hr Q6H40M IV 08/03/17 17:30 09/02/17 17:29 08/04/17 11:11 150 MLS/HR Nicotine (Nicoderm Cq 21MG Patch) 1 patch QAM TD 08/04/17 09:00 09/03/17 08:59 08/04/17 09:43 1 PATCH Miscellaneous (Remove Nicoderm Patch) 1 ea HS N/A 08/03/17 21:00 09/02/17 20:59 Acetaminophen 650 mg/Empty Bag 65 ml @ 260 mls/hr Q6H PRN IV 08/03/17 20:30 09/02/17 20:29 08/03/17 20:52 260 MLS/HR Multivitamins 10 ml/Thiamine HCl 100 mg/Folic Acid 1 mg/Sodium Chloride 1,011.2 ml @ 125 mls/ hr DAILY IV 08/05/17 09:00 08/07/17 17:06 Lorazepam (Ativan Inj) 1 mg Q6 PRN IV 08/04/17 12:00 09/03/17 11:59 Objective Vital Signs Date Time Temp Pulse Resp B/P (MAP) Pulse Ox O2 Delivery O2 Flow Rate FiO2 08/04/17 12:00 Room Air 08/04/17 11:58 37.1 68 22 149/80 (103) 98 Room Air 08/04/17 08:00 Room Air 08/04/17 07:49 37.1 74 20 163/88 (113) 94 Room Air 08/04/17 04:00 Room Air 08/04/17 03:54 36.9 80 22 156/81 (106) 94 Room Air 08/04/17 00:00 Room Air 08/03/17 23:27 37.0 71 18 155/81 (105) 95 Room Air 08/03/17 20:00 Room Air 08/03/17 19:36 38.9 81 18 171/81 (111) 93 Room Air 08/03/17 17:30 37.6 81 18 159/82 95 Room Air 08/03/17 15:56 88 16 157/62 96 Room Air 08/03/17 14:27 86 20 151/85 96 Room Air Physical Exam General Appearance: WD/WN, no apparent distress Respiratory/Chest: lungs clear, no respiratory distress Cardiovascular: no edema, no murmur Abdomen: normal bowel sounds, non tender, soft, no organomegaly, no pulsatile mass Neurologic/Psych: alert, normal mood/affect, oriented x 3 Laboratory Results Last 24 Hours Test 08/03/17 17:54 08/04/17 06:37 Sodium Level 138 mmol/L 138 mmol/L Potassium Level 3.9 mmol/L 3.7 mmol/L Chloride Level 107 mmol/L 107 mmol/L Carbon Dioxide Level 25 mmol/L 23 mmol/L Anion Gap 6.0 mmol/L 8.0 mmol/L Blood Urea Nitrogen 12 mg/dl 11 mg/dl Creatinine 1.23 mg/dl 0.99 mg/dl Est Creatinine Clear Calc Drug Dose 69.4 ml/min 86.2 ml/min Estimated GFR () 71.0 92.2 Estimated GFR (Non- 61.2 79.6 BUN/Creatinine Ratio 9.7 11.2 Random Glucose 103 mg/dl 106 mg/dl Calcium Level 8.8 mg/dl 8.9 mg/dl Acetaminophen Level < 2 ug/ml White Blood Count 8.38 K/uL Red Blood Count 4.30 M/uL Hemoglobin 13.7 g/dL Hematocrit 39.4 % Mean Corpuscular Volume 91.6 fL Mean Corpuscular Hemoglobin 31.9 pg Mean Corpuscular Hemoglobin Concent 34.8 g/dl Platelet Count 182 K/uL Mean Platelet Volume 9.7 fL Neutrophils (%) (Auto) 80.4 % Lymphocytes (%) (Auto) 5.8 % Monocytes (%) (Auto) 8.8 % Eosinophils (%) (Auto) 4.3 % Basophils (%) (Auto) 0.5 % Neutrophils # (Auto) 6.73 K/uL Lymphocytes # (Auto) 0.49 K/uL Monocytes # (Auto) 0.74 K/uL Eosinophils # (Auto) 0.36 K/uL Basophils # (Auto) 0.04 K/uL RDW Standard Deviation 44.4 fL RDW Coefficient of Variation 13.4 % Immature Granulocyte % (Auto) 0.2 % Immature Granulocyte # (Auto) 0.02 K/uL Prothrombin Time 11.8 SECONDS Prothromb Time International Ratio 1.1 Total Bilirubin 5.5 mg/dl Direct Bilirubin 4.5 mg/dl Aspartate Amino Transf (AST/SGOT) 323 U/L Alanine Aminotransferase (ALT/SGPT) 403 U/L Alkaline Phosphatase 197 U/L Total Protein 6.9 gm/dl Albumin 2.9 gm/dl Globulin 4.0 gm/dl Albumin/Globulin Ratio 0.7 Triglycerides Level 185 mg/dl Cholesterol Level 163 mg/dl HDL Cholesterol 44 mg/dl LDL Cholesterol, Calculated 82 mg/dl VLDL Cholesterol, Calculated 37 mg/dl Cholesterol/HDL Ratio 4.2 Lipase 3412 U/L Hepatitis B Surface Antigen NEG Hepatitis C Antibody NEG Monoscreen NEG Assessment and Plan Pancreatitis-improve by labs and clinically, good urine output, etiology could be pancreatitis but with dilated CBD, dilated PD and retroperitoneal adenopathy , needs EUS this admit. elevated LFTS--could be alcoholic hepatitis but obstuctive process also in the differential. , check CMV pending, mono neg, acute hep panel pending, acetaminophen level on admit normal--improved retroperitoneal adenopathy--no primary cancer noted on CT scan or MRCP but suspicious for malignancy so EUS recommended. ascites--not enough to tap prostate cancer--MRI of prostate 07/30 no obvious mass so would be less likely thsi is cause of retroperitoneal adenopathy---w/u per primary team. . Ok for po meds from my standpoint. Continue IVF to maintainu urine output and NPO for food.
--- NOTE | 2017-08-04 14:58 | Progress Note ---
Subjective Date of Service: Aug 04, 2017. Subjective Pt evaluation today including: conversation w/ patient, conversation w/ family , physical exam, chart review, lab review, review of studies Was having fever is morning 38.9, generally feeling okay, was reported mild left flank pain, no nausea vomiting, still on nothing by mouth Problem List Medical Problems: (1) Abdominal lymphadenopathy Status: Acute (2) Pancreatitis Status: Acute (3) Retroperitoneal fluid collection Status: Acute Review of Systems Constitutional: + fever Eyes: No worsening of vision, No eye pain, No redness, No discharge, No diplopia ENT: No hearing loss, No unusual epistaxis, No nasal symptoms, No sore throat, No tinnitus, No dental problems, No trouble swallowing Respiratory: No cough, No sputum, No wheezing, No shortness of breath, No dyspnea on exertion, No dyspnea at rest, No hemoptysis Cardiac: No chest pain, No orthopnea, No PND, No edema, No claudication, No palpitations Abdomen: No pain, No nausea, No vomiting, No diarrhea, No constipation Musculoskeletal: No joint pain, No muscle pain, No swelling, No calf pain Male : No dysuria, No urinary frequency, No incontinence, No nocturia more than once/night, No slowing stream, No hematuria Neurologic: No memory loss, No paralysis, No weakness, No numbness/tingling, No vertigo, No balance problems Psychiatric: No depression symptoms, No anhedonism, No anxiety, No insomnia, No substance abuse Heme: No abnormal bleeding/bruising, No clotting problems, No swollen lymph nodes, No night sweats Endo: No fatigue, No excessive thirst, No excessive urination Skin: No rash, No itch, No new/changing skin lesions, No color change, No bleeding Objective Vital Signs Date Time Temp Pulse Resp B/P (MAP) Pulse Ox O2 Delivery O2 Flow Rate FiO2 08/04/17 12:00 Room Air 08/04/17 11:58 37.1 68 22 149/80 (103) 98 Room Air 08/04/17 08:00 Room Air 08/04/17 07:49 37.1 74 20 163/88 (113) 94 Room Air 08/04/17 04:00 Room Air 08/04/17 03:54 36.9 80 22 156/81 (106) 94 Room Air 08/04/17 00:00 Room Air 08/03/17 23:27 37.0 71 18 155/81 (105) 95 Room Air 08/03/17 20:00 Room Air 08/03/17 19:36 38.9 81 18 171/81 (111) 93 Room Air 08/03/17 17:30 37.6 81 18 159/82 95 Room Air 08/03/17 15:56 88 16 157/62 96 Room Air Physical Exam General Appearance: WD/WN, no apparent distress, + obese Eyes: normal inspection, PERRL, EOMI, + pertinent finding (minimal jaundice) ENT: normal ENT inspection, hearing grossly normal, pharynx normal Neck: supple, no adenopathy, thyroid normal, no JVD, no carotid bruits, trachea midline Respiratory/Chest: chest non-tender, normal breath sounds, no respiratory distress, no accessory muscle use, + decreased breath sounds Cardiovascular: regular rate, rhythm, no edema, no gallop, no JVD, no murmur Abdomen: normal bowel sounds, non tender, soft, no organomegaly, no pulsatile mass Extremities: normal range of motion, non-tender, normal inspection, no pedal edema, no calf tenderness, normal capillary refill, pelvis stable Neurologic/Psychiatric: atm mechanic II-XII nml as tested, no motor/sensory deficits, alert, normal mood/affect, oriented x 3 Skin: normal color, warm/dry, no rash Lymphatic: no adenopathy Laboratory Results Last 24 Hours Test 08/03/17 17:54 08/04/17 06:37 Sodium Level 138 mmol/L 138 mmol/L Potassium Level 3.9 mmol/L 3.7 mmol/L Chloride Level 107 mmol/L 107 mmol/L Carbon Dioxide Level 25 mmol/L 23 mmol/L Anion Gap 6.0 mmol/L 8.0 mmol/L Blood Urea Nitrogen 12 mg/dl 11 mg/dl Creatinine 1.23 mg/dl 0.99 mg/dl Est Creatinine Clear Calc Drug Dose 69.4 ml/min 86.2 ml/min Estimated GFR () 71.0 92.2 Estimated GFR (Non- 61.2 79.6 BUN/Creatinine Ratio 9.7 11.2 Random Glucose 103 mg/dl 106 mg/dl Calcium Level 8.8 mg/dl 8.9 mg/dl Acetaminophen Level < 2 ug/ml White Blood Count 8.38 K/uL Red Blood Count 4.30 M/uL Hemoglobin 13.7 g/dL Hematocrit 39.4 % Mean Corpuscular Volume 91.6 fL Mean Corpuscular Hemoglobin 31.9 pg Mean Corpuscular Hemoglobin Concent 34.8 g/dl Platelet Count 182 K/uL Mean Platelet Volume 9.7 fL Neutrophils (%) (Auto) 80.4 % Lymphocytes (%) (Auto) 5.8 % Monocytes (%) (Auto) 8.8 % Eosinophils (%) (Auto) 4.3 % Basophils (%) (Auto) 0.5 % Neutrophils # (Auto) 6.73 K/uL Lymphocytes # (Auto) 0.49 K/uL Monocytes # (Auto) 0.74 K/uL Eosinophils # (Auto) 0.36 K/uL Basophils # (Auto) 0.04 K/uL RDW Standard Deviation 44.4 fL RDW Coefficient of Variation 13.4 % Immature Granulocyte % (Auto) 0.2 % Immature Granulocyte # (Auto) 0.02 K/uL Prothrombin Time 11.8 SECONDS Prothromb Time International Ratio 1.1 Total Bilirubin 5.5 mg/dl Direct Bilirubin 4.5 mg/dl Aspartate Amino Transf (AST/SGOT) 323 U/L Alanine Aminotransferase (ALT/SGPT) 403 U/L Alkaline Phosphatase 197 U/L Total Protein 6.9 gm/dl Albumin 2.9 gm/dl Globulin 4.0 gm/dl Albumin/Globulin Ratio 0.7 Triglycerides Level 185 mg/dl Cholesterol Level 163 mg/dl HDL Cholesterol 44 mg/dl LDL Cholesterol, Calculated 82 mg/dl VLDL Cholesterol, Calculated 37 mg/dl Cholesterol/HDL Ratio 4.2 Lipase 3412 U/L Hepatitis B Surface Antigen NEG Hepatitis C Antibody NEG Monoscreen NEG Assessment and Plan 67-year-old male admitted because of pancreatitis , abnormal liver function test , history of abuse disorder for years Pancreatitis-improve by labs and clinically, good urine output, etiology could be pancreatitis but CRMP has dilated CBD, dilated PD and retroperitoneal adenopathy, Discussed with the GI, needs EUS in this admit, GI will arrange this tomorrow Alcohol Abuse disorder elevated LFT Etiology could be alcoholic hepatitis, or alcoholic damages, but beer tract obstruction OBS possible, stable and improving checking CMV which is pending, mono neg, acute hep panel pending, acetaminophen level on admit normall Continue current care follow-up Heavy alcohol intake, alcohol abuse, counselling quitting, alcohol withdrawal protocol, banana bag 3 days, Ativan as needed for any sign of withdrawal History of prostate cancer--MRI of prostate 07/30/2017 no obvious mass Nothing by mouth except medication Hypertension continue current medication GI and DVT prophylaxis Continued [facility] stay due to: multiple IV medications needed Discharge planning: home
[2017-08-04] MEDS ORDERED: CEFTRIAXONE SOD INJ 1 GM in DEXTROSE 5% ADD-VANTAGE 50ML 50 ML IV ONE (15:30)
[2017-08-04 15:47] VITALS: BP 146/72; PULSE 84; TEMP 37; O2SAT 95
[2017-08-04 19:00] VITALS: BP 169/85; PULSE 85; TEMP 37.8; O2SAT 93
[2017-08-04] MEDS: ENOXAPARIN 40 MG/0.4 ML SYR SQ SCH (19:53)
[2017-08-04 23:26] VITALS: BP 170/83; PULSE 79; TEMP 37.3; O2SAT 94
[2017-08-05] MEDS: LACTATED RINGER'S 1000ML 1,000 ML IV SCH ×4 (00:01→20:09)
[2017-08-05 04:00] VITALS: BP 162/80; PULSE 81; TEMP 37.1; O2SAT 94
[2017-08-05 05:21] LABS: BASO % 0.5 %; BASO ABS # 0.04 K/uL (0-0.2); COMPLETE YES; EOS % 4.9 %; HEMATOCRIT 40.3 % (42-52); IG% 0.4 %; LYMPH % 6.7 %; LYMPH ABS # 0.49 K/uL (1.2-3.4); MEAN CELL VOLUME 91.4 fL (80-100); MEAN CORPUSCULAR HEMOGLOBIN 31.5 pg (25-34); MEAN CORPUSCULAR HGB CONC 34.5 g/dl (32-36); MEAN PLATELET VOLUME 9.6 fL (7.4-10.4); MONO % 10.4 %; NEUT % 77.1 %; PLATELET COUNT 184 K/uL (130-400); RED BLOOD COUNT 4.41 M/uL (4.7-6.1); WHITE BLOOD COUNT 7.33 K/uL (4.8-10.8)
[2017-08-05 05:34] LABS: INR 1.1 (0.9-1.1); PROTHROMBIN TIME (PATIENT) 11.4 SECONDS (9.0-12.0)
[2017-08-05 05:52] LABS: ALB/GLOB RATIO 0.6 (0.9-2); BUN/CREATININE RATIO 10.4 (10-20); CALCIUM 8.8 mg/dl (8.5-10.1); CREATININE 0.96 mg/dl (0.60-1.40); POTASSIUM 3.9 mmol/L (3.5-5.1)
[2017-08-05] MEDS: CHOLECALCIFEROL 1000 INTER.UNIT TAB PO SCH (07:39)
[2017-08-05] MEDS: NICOTINE 21 MG/24 HR TDSY TD SCH (07:39)
[2017-08-05] MEDS: VALSARTAN 80 MG TAB PO SCH (07:40)
[2017-08-05] MEDS: AMLODIPINE BESYLATE 5 MG TAB PO SCH (07:40)
[2017-08-05] MEDS: ASPIRIN 81 MG ECTAB PO SCH (07:40)
[2017-08-05 07:45] VITALS: BP 169/83; PULSE 76; TEMP 37.3; O2SAT 94
[2017-08-05] MEDS: MULTI-VITAMIN INFUSION INJ 10 ML, THIAMINE HCL INJ 100 MG, FoLIC ACID INJ 1 MG in SODIU... IV SCH (09:09)
[2017-08-05 12:28] VITALS: BP 146/58; PULSE 67; TEMP 37.1; O2SAT 95
--- NOTE | 2017-08-05 13:34 | Hospitalist Progress Note ---
Hospitalist Progress Note Date of Service Aug 05, 2017. (Kim Nuñez PA-C) Subjective Pt evaluation today including: conversation w/ patient, conversation w/ family , physical exam, chart review, lab review, review of studies, review of inpatient medication list Voiding: gill catheter in place Patient seen and evaluated. No acute events overnight. LFTs and lipase continue to trend down. Reporting increase in appetite and no abdominal pain. Due for EUS hopefully today for further evaluation. Reports a cough that started on admission but is intermittent but producing sputum. Constitutional: No fever, No chills ENT: No nasal symptoms, No sore throat Respiratory: + cough, + sputum, No shortness of breath Cardiovascular: No chest pain, No palpitations Abdomen: No pain, No nausea, No vomiting, No diarrhea Musculoskeletal: No swelling, No calf pain Male : No dysuria Heme: No abnormal bleeding/bruising (Kim Nuñez PA-C) Medications Current Inpatient Medications Medications (Trade) Dose Ordered Sig/Elyse Route Start Time Stop Time Status Last Admin Dose Admin Ioversol (Optiray 320) 100 ml UD PRN IV 08/03/17 11:15 08/07/17 11:14 Aspirin (Ecotrin Tab) 81 mg DAILY PO 08/04/17 09:00 09/03/17 08:59 08/05/17 07:40 81 MG Enoxaparin Sodium (Lovenox Inj) 40 mg Q24H SQ 08/03/17 18:00 09/02/17 17:59 08/04/17 19:53 40 MG Lactated Ringer's 1,000 ml @ 150 mls/hr Q6H40M IV 08/03/17 17:30 09/02/17 17:29 08/05/17 06:15 150 MLS/HR Nicotine (Nicoderm Cq 21MG Patch) 1 patch QAM TD 08/04/17 09:00 09/03/17 08:59 08/05/17 07:39 1 PATCH Miscellaneous (Remove Nicoderm Patch) 1 ea HS N/A 08/03/17 21:00 09/02/17 20:59 08/04/17 20:55 1 EA Acetaminophen 650 mg/Empty Bag 65 ml @ 260 mls/hr Q6H PRN IV 08/03/17 20:30 09/02/17 20:29 08/03/17 20:52 260 MLS/HR Multivitamins 10 ml/Thiamine HCl 100 mg/Folic Acid 1 mg/Sodium Chloride 1,011.2 ml @ 125 mls/ hr DAILY IV 08/05/17 09:00 08/07/17 17:06 08/05/17 09:09 125 MLS/HR Lorazepam (Ativan Inj) 1 mg Q6 PRN IV 08/04/17 12:00 09/03/17 11:59 Amlodipine Besylate (Norvasc Tab) 10 mg DAILY PO 08/05/17 09:00 09/04/17 08:59 08/05/17 07:40 10 MG Valsartan (Diovan Tab) 160 mg DAILY PO 08/05/17 09:00 09/04/17 08:59 08/05/17 07:40 160 MG Cholecalciferol (Vitamin D Tab) 1,000 inter.unit DAILY PO 08/05/17 09:00 09/04/17 08:59 08/05/17 07:39 1,000 INTER.UNIT Ceftriaxone Sodium 1 gm/ Dextrose 50 ml @ 100 mls/hr DAILY@1500 IV 08/05/17 15:00 08/08/17 15:29 (Kim Nuñez, PA-C) Objective Vital Signs Date Time Temp Pulse Resp B/P (MAP) Pulse Ox O2 Delivery O2 Flow Rate FiO2 08/05/17 12:28 37.1 67 17 146/58 (87) 95 Room Air 08/05/17 12:00 Room Air 08/05/17 08:00 Room Air 08/05/17 07:45 37.3 76 18 169/83 (111) 94 Room Air 08/05/17 04:00 Room Air 08/05/17 04:00 37.1 81 18 162/80 (107) 94 Room Air 08/05/17 00:00 Room Air 08/04/17 23:26 37.3 79 18 170/83 (112) 94 Room Air 08/04/17 20:00 Room Air 08/04/17 19:00 37.8 85 18 169/85 (113) 93 Room Air 08/04/17 16:00 Room Air 08/04/17 15:47 37.0 84 18 146/72 (96) 95 Room Air (Kim Nuñez PA-C) Physical Exam General Appearance: WD/WN, no apparent distress ENT: hearing grossly normal Neck: supple, no JVD, trachea midline Respiratory/Chest: lungs clear, normal breath sounds, no respiratory distress, no accessory muscle use Cardiovascular: regular rate, rhythm, no gallop, no murmur Abdomen: normal bowel sounds, non tender, soft Extremities: no pedal edema, no calf tenderness Neurologic/Psychiatric: alert, oriented x 3 Skin: normal color, warm/dry (Kim Nuñez PA-C) Laboratory Results Last 24 Hours Test 08/05/17 04:58 White Blood Count 7.33 K/uL Red Blood Count 4.41 M/uL Hemoglobin 13.9 g/dL Hematocrit 40.3 % Mean Corpuscular Volume 91.4 fL Mean Corpuscular Hemoglobin 31.5 pg Mean Corpuscular Hemoglobin Concent 34.5 g/dl Platelet Count 184 K/uL Mean Platelet Volume 9.6 fL Neutrophils (%) (Auto) 77.1 % Lymphocytes (%) (Auto) 6.7 % Monocytes (%) (Auto) 10.4 % Eosinophils (%) (Auto) 4.9 % Basophils (%) (Auto) 0.5 % Neutrophils # (Auto) 5.65 K/uL Lymphocytes # (Auto) 0.49 K/uL Monocytes # (Auto) 0.76 K/uL Eosinophils # (Auto) 0.36 K/uL Basophils # (Auto) 0.04 K/uL RDW Standard Deviation 43.0 fL RDW Coefficient of Variation 12.9 % Immature Granulocyte % (Auto) 0.4 % Immature Granulocyte # (Auto) 0.03 K/uL Prothrombin Time 11.4 SECONDS Prothromb Time International Ratio 1.1 Sodium Level 137 mmol/L Potassium Level 3.9 mmol/L Chloride Level 104 mmol/L Carbon Dioxide Level 23 mmol/L Anion Gap 10.0 mmol/L Blood Urea Nitrogen 10 mg/dl Creatinine 0.96 mg/dl Est Creatinine Clear Calc Drug Dose 88.9 ml/min Estimated GFR () 95.8 Estimated GFR (Non- 82.6 BUN/Creatinine Ratio 10.4 Random Glucose 91 mg/dl Calcium Level 8.8 mg/dl Total Bilirubin 5.1 mg/dl Direct Bilirubin 4.1 mg/dl Aspartate Amino Transf (AST/SGOT) 281 U/L Alanine Aminotransferase (ALT/SGPT) 368 U/L Alkaline Phosphatase 189 U/L Total Protein 7.2 gm/dl Albumin 2.8 gm/dl Globulin 4.4 gm/dl Albumin/Globulin Ratio 0.6 Lipase 1852 U/L (Kim Nuñez, PA-C) Assessment and Plan 67-year-old male admitted because of pancreatitis , abnormal liver function test , history of abuse disorder for years Acute Pancreatitis: ETOH-Induced vs Biliary - Clinically improved and LFTs/Lipase continues to trend down - Does have dilated CBD and pancreatic duct with retroperitoneal adenopathy - Remains NPO except meds at this time and continue hydration of LR 150 mL/hr - GI following - plann for EUS this admission ETOH Abuse: - Hepatitis panel pending - Banana bag x 3 days and PRN ativan for withdrawal - no signs of withdrawal Fever: - Had fevers on previous days but remains afebrile and without leukocytosis - will hold off on further ABx coverage H/O Prostate CA: STABLE DVT Prophylaxis: Lovenox 40 mg SC daily Code Status: FULL RESUSCITATION Disposition: Await EUS and diet advancement Continued [facility] stay due to: multiple IV medications needed Discharge planning: home (Kim Nuñez, PA-C) i personally examined pt and verified all allred points w Rosalino Nuñez PAC feeling better no pain no nausea awaiting GI decision on timing of EUS vitals noted nad no abdominal tenderness pancreatitis - EtOH vs biliary vs both. LFTs w concern on obstruction, especially w not-normal MRCP -for EUS -continue IVF, supportive care otherwise -appearing medically stable (Jorge Pastrana D.O.)
[2017-08-05] MEDS ORDERED: CEFTRIAXONE SOD INJ 1 GM in DEXTROSE 5% ADD-VANTAGE 50ML 50 ML IV SCH (15:00)
[2017-08-05 15:37] VITALS: BP 148/89; PULSE 70; TEMP 37; O2SAT 95
[2017-08-05] MEDS: ENOXAPARIN 40 MG/0.4 ML SYR SQ SCH (17:46)
[2017-08-05 18:04] VITALS: BP 115/67; PULSE 80; TEMP 36.5; O2SAT 93
[2017-08-05 19:29] VITALS: BP 151/74; PULSE 86; TEMP 36; O2SAT 94
[2017-08-05] MEDS ORDERED: AMLODIPINE BESYLATE 5 MG TAB PO STA (23:41)
[2017-08-06] VITALS (8 sets, daily range): BP systolic 128–175; BP diastolic 73–89; PULSE 76–97; TEMP 36.7–37.2; O2SAT 93–96
[2017-08-06] MEDS: LACTATED RINGER'S 1000ML 1,000 ML IV SCH ×4 (00:59→23:47)
[2017-08-06 07:06] LABS: BASO % 0.5 %; BASO ABS # 0.04 K/uL (0-0.2); COMPLETE YES; EOS % 5.1 %; HEMATOCRIT 39.3 % (42-52); IG% 0.8 %; LYMPH % 5.6 %; LYMPH ABS # 0.43 K/uL (1.2-3.4); MEAN CORPUSCULAR HEMOGLOBIN 31.9 pg (25-34); MEAN CORPUSCULAR HGB CONC 35.1 g/dl (32-36); MEAN PLATELET VOLUME 9.3 fL (7.4-10.4); MONO % 10.6 %; NEUT % 77.4 %; PLATELET COUNT 202 K/uL (130-400); RED BLOOD COUNT 4.32 M/uL (4.7-6.1); WHITE BLOOD COUNT 7.71 K/uL (4.8-10.8)
[2017-08-06 07:15] LABS: PROTHROMBIN TIME (PATIENT) 10.8 SECONDS (9.0-12.0)
[2017-08-06 07:46] LABS: BUN/CREATININE RATIO 13.5 (10-20); CALCIUM 8.9 mg/dl (8.5-10.1); CREATININE 0.84 mg/dl (0.60-1.40); POTASSIUM 3.5 mmol/L (3.5-5.1)
[2017-08-06 07:48] LABS: ALB/GLOB RATIO 0.6 (0.9-2)
[2017-08-06] MEDS: VALSARTAN 80 MG TAB PO SCH (07:49)
[2017-08-06] MEDS: ASPIRIN 81 MG ECTAB PO SCH (07:49)
[2017-08-06] MEDS: CHOLECALCIFEROL 1000 INTER.UNIT TAB PO SCH (07:49)
[2017-08-06] MEDS: AMLODIPINE BESYLATE 5 MG TAB PO SCH (07:49)
[2017-08-06] MEDS: NICOTINE 21 MG/24 HR TDSY TD SCH (07:49)
[2017-08-06] MEDS: MULTI-VITAMIN INFUSION INJ 10 ML, THIAMINE HCL INJ 100 MG, FoLIC ACID INJ 1 MG in SODIU... IV SCH (07:58)
--- NOTE | 2017-08-06 09:07 | GASTROENTEROLOGY PROGRESS NOTE ---
DATE: 08/05/2017 TIME: 6:15 p.m. The patient was admitted with first onset of acute pancreatitis, at which time suspicion for retroperitoneal lymph nodes was identified, although there is no specific mass in the liver or pancreas. Biliary and pancreatic ductal systems on MRCP are expanded without an obvious cause. Historically, the patient does drink alcoholic beverages, mostly beer over many years. There is a pattern of mild prominence to the pancreatic duct with the CBD measuring 12 mm; however, there is no obstructing stones, calculus or masses. There are no gallstones, although the gallbladder wall is slightly thickened and distended. There is also intrahepatic ductal dilation. The patient has no prior knowledge of liver disorder or pancreatic disorder and no family history for this. He had been treated for hypercholesterolemia, however, had stopped this medication on his own. At the present time, he had presented with pancreatitis pain 7/10 but currently is 0/10 and is resting comfortably in bed, his at the bedside. He has been n.p.o. MEDICATIONS: Include multivitamins, amlodipine, valsartan, cholecalciferol, lorazepam, aspirin, nicotine patch, Lovenox for DVT and received lactate Ringer's for fluid resuscitation because of acute pancreatitis. VITAL SIGNS: Today, blood pressure is 146/58, pulse 67, temperature 37.1, 95% on room air. His laboratory studies today show white count 7.3, this was elevated during admission, hemoglobin 13.9 which has come down with hydration, platelets are 184,000. Serum chemistries show blood sugar at 82. His total bili remains elevated at 5.1, although it is down from yesterday at 5.5. Other liver tests do show improvement namely AST is down to 281, ALT down to 368, alkaline phosphatase is essentially unchanged at 189, this is mostly direct bilirubin at 4.1. The patient's lipase is 1852 and down from 3412 yesterday. VITAL SIGNS: The patient is afebrile at 37.0, blood pressure 148/89, respirations 20, heart rate 70, 95% on room air. PHYSICAL EXAMINATION: GENERAL: Today, the patient is awake, alert and oriented x3, resting comfortably in bed. HEENT: Sclerae are mildly icteric. Oral mucosa moist. Conjunctivae moist. HEART: Normal S1, S2. LUNGS: Clear to auscultation. ABDOMEN: Soft, nontender, nondistended, with good bowel sounds. There is no rebound or guarding. I do not appreciate abdominal bruits or masses. EXTREMITIES: Without clubbing, cyanosis or edema. RECTAL: Deferred. IMPRESSION AND PLAN: The patient's imaging studies suggest retroperitoneal adenopathy, though the patient denies any chronic weight loss or other gastrointestinal symptoms up until the onset of this patient's acute pancreatitis. The retroperitoneal adenopathy is concerning for possible metastatic disease and he does have a history of prostate cancer, although this was limited apparently on only 1 of several biopsy samples taken of the prostate and the CT does not suggest prostate problem. Certainly, in the differential is lymphoma with these changes. I made the following recommendations. I would consider maintaining n.p.o. status overnight and observing liver tests and pancreatic enzymes tomorrow. If he clinically remains asymptomatic and his numbers are trending down, diet can be advanced slowly, initially with clears. He should always be maintained on a low-fat diet until this matter is resolved and diagnostics are complete. At this time, endoscopic ultrasound may be difficult given the acute pancreatitis to assess for any adenopathy specific masses, although this is something that will be considered over the next 1-3 weeks. However, if LFTs rise and symptoms return or if there is suggestion of progressive dilation, it may be prudent to at least initially perform an upper endoscopy with a standard and side viewing endoscope to exclude an ampullary process. If there is any suggestion of a lymphoma, then hematology evaluation may be prudent. We will continue to follow. All questions answered for the patient and his spouse.
--- NOTE | 2017-08-06 16:01 | PROGRESS NOTE ---
DATE: 08/06/2017 SUBJECTIVE: The patient reports no significant abdominal pain today. OBJECTIVE: His vital signs are normal except for slightly elevated blood pressure of 147/73. LABORATORY DATA: Laboratory test shows negative serological tests for hepatitis A, B, and C and mono. His lipase is trending down from 1852 yesterday to 1663 today. Bilirubin is still elevated at 6 today, but his alkaline phosphatase is relatively stable and aminotransferase levels are trending down. MRCP does not show any blockage of his bile duct despite it being slightly dilated at 12 mm. IMPRESSION: The patient's acute pancreatitis is improving. He is tolerating clear liquids today. PLAN: Plan on advancing him to a low fat diet starting tomorrow. Once the inflammation around his pancreas subsides, he may be a candidate for endoscopic ultrasound to evaluate the pancreas, bile duct, and the retroperitoneal adenopathy seen on CT scan. We will follow the patient during his hospital stay.
--- NOTE | 2017-08-06 16:25 | Hospitalist Progress Note ---
Hospitalist Progress Note Date of Service Aug 06, 2017. (Kim Nuñez, VIBHAC) Subjective Pt evaluation today including: conversation w/ patient, physical exam, chart review, lab review, review of studies, review of inpatient medication list Patient seen and evaluated. No acute events overnight. Continues to be abdominal pain free, no nausea, no vomiting. Reporting presence of appetite and will advance diet. Plan to perform EUS when labs improve. Clinically patient appears resolved. Will advance diet and monitor tolerance. Has not had a BM in a few days but denies feeling constipated at this time. Constitutional: No fever, No chills Eyes: No worsening of vision Respiratory: + cough, No shortness of breath Cardiovascular: No chest pain Abdomen: No pain, No nausea, No vomiting, No diarrhea, No constipation Musculoskeletal: No swelling, No calf pain Male : No dysuria Heme: No abnormal bleeding/bruising (Kmi Nuñez, SHALA-C) Medications Current Inpatient Medications Medications (Trade) Dose Ordered Sig/Elyse Route Start Time Stop Time Status Last Admin Dose Admin Ioversol (Optiray 320) 100 ml UD PRN IV 08/03/17 11:15 08/07/17 11:14 Aspirin (Ecotrin Tab) 81 mg DAILY PO 08/04/17 09:00 09/03/17 08:59 08/06/17 07:49 81 MG Enoxaparin Sodium (Lovenox Inj) 40 mg Q24H SQ 08/03/17 18:00 09/02/17 17:59 08/05/17 17:46 40 MG Lactated Ringer's 1,000 ml @ 150 mls/hr Q6H40M IV 08/03/17 17:30 09/02/17 17:29 08/06/17 00:59 150 MLS/HR Nicotine (Nicoderm Cq 21MG Patch) 1 patch QAM TD 08/04/17 09:00 09/03/17 08:59 08/06/17 07:49 1 PATCH Miscellaneous (Remove Nicoderm Patch) 1 ea HS N/A 08/03/17 21:00 09/02/17 20:59 08/05/17 20:44 1 EA Multivitamins 10 ml/Thiamine HCl 100 mg/Folic Acid 1 mg/Sodium Chloride 1,011.2 ml @ 125 mls/ hr DAILY IV 08/05/17 09:00 08/07/17 17:06 08/06/17 07:58 125 MLS/HR Lorazepam (Ativan Inj) 1 mg Q6 PRN IV 08/04/17 12:00 09/03/17 11:59 Amlodipine Besylate (Norvasc Tab) 10 mg DAILY PO 08/05/17 09:00 09/04/17 08:59 08/06/17 07:49 10 MG Valsartan (Diovan Tab) 160 mg DAILY PO 08/05/17 09:00 09/04/17 08:59 08/06/17 07:49 160 MG Cholecalciferol (Vitamin D Tab) 1,000 inter.unit DAILY PO 08/05/17 09:00 09/04/17 08:59 08/06/17 07:49 1,000 INTER.UNIT (Kim Nuñez PA-C) Objective Vital Signs Date Time Temp Pulse Resp B/P (MAP) Pulse Ox O2 Delivery O2 Flow Rate FiO2 08/06/17 15:46 36.7 97 18 128/77 (94) 94 Room Air 08/06/17 11:12 36.9 80 18 147/73 (97) 96 Room Air 08/06/17 10:30 147/73 (97) 08/06/17 08:44 93 Room Air 08/06/17 08:00 95 Room Air 08/06/17 07:21 36.8 76 16 173/83 (113) 95 Room Air 08/06/17 00:22 37.2 78 20 175/89 (117) 94 Room Air 08/06/17 00:15 Room Air 08/05/17 20:05 Room Air 08/05/17 19:29 36.0 86 18 151/74 (99) 94 Room Air (Kim Nuñez PA-C) Physical Exam General Appearance: WD/WN, no apparent distress Eyes: sclerae normal ENT: hearing grossly normal Neck: no JVD Respiratory/Chest: lungs clear, normal breath sounds, no respiratory distress, no accessory muscle use Cardiovascular: regular rate, rhythm, no gallop, no murmur Abdomen: normal bowel sounds, non tender, soft Extremities: no pedal edema, no calf tenderness Neurologic/Psychiatric: alert, oriented x 3 Skin: normal color, warm/dry (Kim Nuñez PA-C) Laboratory Results Last 24 Hours Test 08/05/17 17:43 08/06/17 06:48 Bedside Glucose 82 mg/dl White Blood Count 7.71 K/uL Red Blood Count 4.32 M/uL Hemoglobin 13.8 g/dL Hematocrit 39.3 % Mean Corpuscular Volume 91.0 fL Mean Corpuscular Hemoglobin 31.9 pg Mean Corpuscular Hemoglobin Concent 35.1 g/dl Platelet Count 202 K/uL Mean Platelet Volume 9.3 fL Neutrophils (%) (Auto) 77.4 % Lymphocytes (%) (Auto) 5.6 % Monocytes (%) (Auto) 10.6 % Eosinophils (%) (Auto) 5.1 % Basophils (%) (Auto) 0.5 % Neutrophils # (Auto) 5.97 K/uL Lymphocytes # (Auto) 0.43 K/uL Monocytes # (Auto) 0.82 K/uL Eosinophils # (Auto) 0.39 K/uL Basophils # (Auto) 0.04 K/uL RDW Standard Deviation 43.5 fL RDW Coefficient of Variation 13.1 % Immature Granulocyte % (Auto) 0.8 % Immature Granulocyte # (Auto) 0.06 K/uL Prothrombin Time 10.8 SECONDS Prothromb Time International Ratio 1.0 Sodium Level 137 mmol/L Potassium Level 3.5 mmol/L Chloride Level 105 mmol/L Carbon Dioxide Level 20 mmol/L Anion Gap 12.0 mmol/L Blood Urea Nitrogen 11 mg/dl Creatinine 0.84 mg/dl Est Creatinine Clear Calc Drug Dose 101.3 ml/min Estimated GFR () 106.5 Estimated GFR (Non- 91.9 BUN/Creatinine Ratio 13.5 Random Glucose 84 mg/dl Calcium Level 8.9 mg/dl Total Bilirubin 6.0 mg/dl Direct Bilirubin 4.8 mg/dl Aspartate Amino Transf (AST/SGOT) 286 U/L Alanine Aminotransferase (ALT/SGPT) 362 U/L Alkaline Phosphatase 227 U/L Total Protein 7.2 gm/dl Albumin 2.7 gm/dl Globulin 4.5 gm/dl Albumin/Globulin Ratio 0.6 Lipase 1663 U/L (Kim Nuñez PA-C) Assessment and Plan 67-year-old male admitted because of pancreatitis , abnormal liver function test , history of abuse disorder for years Acute Pancreatitis: ETOH-Induced vs Biliary - Clinically improved and LFTs/Lipase stable today but will continue to monitor and trend - Does have dilated CBD and pancreatic duct with retroperitoneal adenopathy - plan for EUS once labs improve - Will start to advance diet and monitor tolerance - if tolerating oral intake will likely D/C fluids tomorrow - GI following - Plan to advance diet and plan for EUS when labs improve ETOH Abuse: - Hepatitis panel pending - Banana bag x 3 days and PRN ativan for withdrawal - no signs of withdrawal Fever: - Had fevers on previous days but remains afebrile and without leukocytosis - will hold off on further ABx coverage H/O Prostate CA: STABLE DVT Prophylaxis: Lovenox 40 mg SC daily Code Status: FULL RESUSCITATION Disposition: Monitor diet advancement - Possible inpatient vs outpatient EUS - if planned for outpatient can possible D/C next 1-2 days pending continued resolution of symptoms and oral tolerance Continued [facility] stay due to: inadequate po fluid intake Discharge planning: home (Kim Nuñez, PA-C) i personally examined pt and verified all allred points w Rosalino Nuñez PAC feeling ok no pain - tolerating clears well - maybe a little gas vitals noted labs reviewed abd mild distention nontender no guarding/rebound acute pancreatitis - EtOH vs biliary vs both -with LFTs not trending down despite ongoing clinical improvement - strongly suspect stricture or retained stone. currently no cholangitis. anticipate EGD/ EUS in near future -contineu supportive care (Jorge Pastrana D.O.)
[2017-08-06] MEDS ORDERED: BENZONATATE 100MG CAP PO PRN (16:30)
[2017-08-06] MEDS: ENOXAPARIN 40 MG/0.4 ML SYR SQ SCH (17:14)
[2017-08-07 00:24] VITALS: BP 146/79; PULSE 71; TEMP 37.2; O2SAT 94
[2017-08-07] MEDS: LACTATED RINGER'S 1000ML 1,000 ML IV SCH ×2 (05:56→16:21)
[2017-08-07 06:52] LABS: BASO % 0.7 %; BASO ABS # 0.04 K/uL (0-0.2); COMPLETE YES; EOS % 7.6 %; HEMATOCRIT 40.4 % (42-52); IG% 0.3 %; LYMPH % 10.4 %; MEAN CORPUSCULAR HGB CONC 35.1 g/dl (32-36); MEAN PLATELET VOLUME 9.4 fL (7.4-10.4); MONO % 11.1 %; NEUT % 69.9 %; PLATELET COUNT 211 K/uL (130-400); RED BLOOD COUNT 4.44 M/uL (4.7-6.1); WHITE BLOOD COUNT 5.76 K/uL (4.8-10.8)
[2017-08-07 07:12] LABS: PROTHROMBIN TIME (PATIENT) 11.1 SECONDS (9.0-12.0)
[2017-08-07 07:40] LABS: ALB/GLOB RATIO 0.6 (0.9-2); BUN/CREATININE RATIO 10.8 (10-20); CALCIUM 9.1 mg/dl (8.5-10.1); CREATININE 0.95 mg/dl (0.60-1.40); POTASSIUM 3.4 mmol/L (3.5-5.1)
[2017-08-07] MEDS: VALSARTAN 80 MG TAB PO SCH (07:45)
[2017-08-07] MEDS: CHOLECALCIFEROL 1000 INTER.UNIT TAB PO SCH (07:46)
[2017-08-07] MEDS: AMLODIPINE BESYLATE 5 MG TAB PO SCH (07:46)
[2017-08-07] MEDS: ASPIRIN 81 MG ECTAB PO SCH (07:46)
[2017-08-07] MEDS: NICOTINE 21 MG/24 HR TDSY TD SCH (07:47)
[2017-08-07] MEDS: MULTI-VITAMIN INFUSION INJ 10 ML, THIAMINE HCL INJ 100 MG, FoLIC ACID INJ 1 MG in SODIU... IV SCH (08:00)
[2017-08-07 08:30] VITALS: O2SAT 94
[2017-08-07 08:41] VITALS: BP 120/76; PULSE 76; TEMP 36.4; O2SAT 96
[2017-08-07 12:04] VITALS: BP 127/69; PULSE 59; TEMP 36.8; O2SAT 96
--- NOTE | 2017-08-07 14:43 | Hospitalist Progress Note ---
Hospitalist Progress Note Date of Service Aug 07, 2017. (Kim Nuñez PA-C) Subjective Pt evaluation today including: conversation w/ patient Patient seen and evaluated. No acute events overnight. Tolerating low fat diet. Reporting some initial gas-like sensation after eating but quickly subsided. LFTs largely plateaued but lipase continues to trend down. Only complaint is he hasn't had a bowel movement yet but things he may be able to go today. No withdrawal symptoms. Constitutional: No fever, No chills Respiratory: + cough, No shortness of breath Cardiovascular: No chest pain Abdomen: No pain, No nausea, No vomiting, No diarrhea Male : No dysuria Skin: No rash (Kim Nuñez PA-C) Medications Current Inpatient Medications Medications (Trade) Dose Ordered Sig/Elyse Route Start Time Stop Time Status Last Admin Dose Admin Aspirin (Ecotrin Tab) 81 mg DAILY PO 08/04/17 09:00 09/03/17 08:59 08/07/17 07:46 81 MG Enoxaparin Sodium (Lovenox Inj) 40 mg Q24H SQ 08/03/17 18:00 09/02/17 17:59 08/06/17 17:14 40 MG Lactated Ringer's 1,000 ml @ 150 mls/hr Q6H40M IV 08/03/17 17:30 09/02/17 17:29 08/07/17 05:56 150 MLS/HR Nicotine (Nicoderm Cq 21MG Patch) 1 patch QAM TD 08/04/17 09:00 09/03/17 08:59 08/07/17 07:47 1 PATCH Miscellaneous (Remove Nicoderm Patch) 1 ea HS N/A 08/03/17 21:00 09/02/17 20:59 08/05/17 20:44 1 EA Multivitamins 10 ml/Thiamine HCl 100 mg/Folic Acid 1 mg/Sodium Chloride 1,011.2 ml @ 125 mls/ hr DAILY IV 08/05/17 09:00 08/07/17 17:06 08/07/17 08:00 125 MLS/HR Lorazepam (Ativan Inj) 1 mg Q6 PRN IV 08/04/17 12:00 09/03/17 11:59 Amlodipine Besylate (Norvasc Tab) 10 mg DAILY PO 08/05/17 09:00 09/04/17 08:59 08/07/17 07:46 10 MG Valsartan (Diovan Tab) 160 mg DAILY PO 08/05/17 09:00 09/04/17 08:59 08/07/17 07:45 160 MG Cholecalciferol (Vitamin D Tab) 1,000 inter.unit DAILY PO 08/05/17 09:00 09/04/17 08:59 08/07/17 07:46 1,000 INTER.UNIT Benzonatate (Tessalon Perles Cap) 100 mg TID PRN PO 08/06/17 16:30 09/05/17 16:29 (Kim Nuñez PA-C) Objective Vital Signs Date Time Temp Pulse Resp B/P (MAP) Pulse Ox O2 Delivery O2 Flow Rate FiO2 08/07/17 12:04 36.8 59 20 127/69 (88) 96 Room Air 08/07/17 08:41 36.4 76 20 120/76 (91) 96 Room Air 08/07/17 08:30 94 Room Air 08/07/17 00:24 37.2 71 20 146/79 (101) 94 Room Air 08/07/17 00:00 Room Air 08/06/17 16:00 94 Room Air 08/06/17 15:46 36.7 97 18 128/77 (94) 94 Room Air (Kim Nuñez PA-C) Physical Exam General Appearance: WD/WN, no apparent distress Respiratory/Chest: lungs clear, normal breath sounds, no respiratory distress, no accessory muscle use Cardiovascular: regular rate, rhythm, no gallop, no murmur Abdomen: normal bowel sounds, non tender, soft Extremities: no calf tenderness Neurologic/Psychiatric: alert, oriented x 3 (Kim Nuñez PA-C) Laboratory Results Last 24 Hours Test 08/07/17 06:28 White Blood Count 5.76 K/uL Red Blood Count 4.44 M/uL Hemoglobin 14.2 g/dL Hematocrit 40.4 % Mean Corpuscular Volume 91.0 fL Mean Corpuscular Hemoglobin 32.0 pg Mean Corpuscular Hemoglobin Concent 35.1 g/dl Platelet Count 211 K/uL Mean Platelet Volume 9.4 fL Neutrophils (%) (Auto) 69.9 % Lymphocytes (%) (Auto) 10.4 % Monocytes (%) (Auto) 11.1 % Eosinophils (%) (Auto) 7.6 % Basophils (%) (Auto) 0.7 % Neutrophils # (Auto) 4.02 K/uL Lymphocytes # (Auto) 0.60 K/uL Monocytes # (Auto) 0.64 K/uL Eosinophils # (Auto) 0.44 K/uL Basophils # (Auto) 0.04 K/uL RDW Standard Deviation 44.0 fL RDW Coefficient of Variation 13.3 % Immature Granulocyte % (Auto) 0.3 % Immature Granulocyte # (Auto) 0.02 K/uL Prothrombin Time 11.1 SECONDS Prothromb Time International Ratio 1.0 Sodium Level 140 mmol/L Potassium Level 3.4 mmol/L Chloride Level 106 mmol/L Carbon Dioxide Level 25 mmol/L Anion Gap 10.0 mmol/L Blood Urea Nitrogen 10 mg/dl Creatinine 0.95 mg/dl Est Creatinine Clear Calc Drug Dose 89.6 ml/min Estimated GFR () 97.0 Estimated GFR (Non- 83.7 BUN/Creatinine Ratio 10.8 Random Glucose 120 mg/dl Calcium Level 9.1 mg/dl Total Bilirubin 5.4 mg/dl Direct Bilirubin 4.6 mg/dl Aspartate Amino Transf (AST/SGOT) 269 U/L Alanine Aminotransferase (ALT/SGPT) 357 U/L Alkaline Phosphatase 262 U/L Total Protein 7.1 gm/dl Albumin 2.6 gm/dl Globulin 4.5 gm/dl Albumin/Globulin Ratio 0.6 Lipase 938 U/L (Kim Nuñez, PA-C) Assessment and Plan 67-year-old male admitted because of pancreatitis , abnormal liver function test , history of abuse disorder for years Acute Pancreatitis: ETOH-Induced vs Biliary - Clinically improved and LFTs/Lipase stable today but will continue to monitor and trend - Does have dilated CBD and pancreatic duct with retroperitoneal adenopathy - plan for EUS hopefully tomorrow? -- Given biliary findings it is questionable that this is possible sphincter related - Tolerating current diet - GI following - Possible EUS while inpatient to better evaluate reasoning for LFTs stabilization? ETOH Abuse: STABLE - No signs of withdrawal - can continue Ativan PRN Fever: - Reporting low grade fevers at night however states he feels well. No overt signs of infection H/O Prostate CA: STABLE DVT Prophylaxis: Lovenox 40 mg SC daily Code Status: FULL RESUSCITATION Disposition: - Would benefit from inpatient EUS to further evaluate stabilization of LFTs. Continued [facility] stay due to: other (EUS) Discharge planning: home (Kim Nuñez, PALillyC) i personally examined pt and verified all allred points w Rosalino Nuñez PAC feeling better eating well nervous about holding off on EGD/EUS - GI noted they' re concerned that they might not see enough and then have to do the test again vitals noted nad breathing unlabored no pallor or icterus. abdomen absolutely nontender no guarding no rebound pancreatitis and biliary process -pancreatitis seems likely from biliary process > EtOH but certainly could be elements of both -improved clinically, labs still showing obstrcutive pattern - not worsening but also not significantly improving -for EGD/EUS in near future - GI harbors concerns taht they'll not have complete test if done before pancreatitis related swelling subsides - this is reasonable - especially since pt not showing signs of worsening and not showing cholangitis picture -repeat LFTs in AM, RUQ US to r/o worsening biliary tree dilation -if labs and US reassuring/stable - then home on low fat diet, CMP saturday and saturday, PCP Saturday, EUS as outpt in 1-2 weeks, red flags for worry sx outlined EtoH abuse - no signs of withdrawal, change thiamine/folate to PO (Jorge Pastrana D.O.)
--- NOTE | 2017-08-07 17:11 | PROGRESS NOTE ---
DATE: 08/07/2017 SUBJECTIVE: The patient does not have any abdominal pain and he is tolerating a low fat diet. OBJECTIVE: His vital signs are normal. He is afebrile. He has not had a bowel movement now at least 4 days. LABORATORY: Shows that his blood counts remain stable. His lipase continues to trend down to 938 today from 1663 yesterday. Liver profile has stabilized with a bilirubin of 5.4, AST 269, ALT 357 and alkaline phosphatase of 262. IMPRESSION: The patient has acute pancreatitis of unclear etiology. He does have some adenopathy in the abdomen, which is of concern. Currently with the edema around the pancreas, doing an endoscopic ultrasound would not be of benefit as the visualization would be completely obscured and it is better to do this once the edema and swelling has gone down around the pancreas and hopefully, we can get that biopsy of one of these lymph nodes that are enlarged at that time, but it might be a couple weeks from now. At this point, I would recommend that the patient continue on his low fat diet and follow up as an outpatient with Dr. Giron in the next week or two and then arrange for an outpatient endoscopic ultrasound once this inflammation in his pancreas has subsided.
[2017-08-07] MEDS: ENOXAPARIN 40 MG/0.4 ML SYR SQ SCH (18:30)
[2017-08-07 23:50] VITALS: BP 126/85; PULSE 63; TEMP 36.9; O2SAT 96
[2017-08-08 06:19] LABS: BASO % 1.4 %; BASO ABS # 0.08 K/uL (0-0.2); COMPLETE YES; EOS % 8.2 %; HEMATOCRIT 38.7 % (42-52); IG% 0.7 %; LYMPH % 10.6 %; LYMPH ABS # 0.61 K/uL (1.2-3.4); MEAN CELL VOLUME 91.7 fL (80-100); MEAN CORPUSCULAR HEMOGLOBIN 31.8 pg (25-34); MEAN CORPUSCULAR HGB CONC 34.6 g/dl (32-36); MEAN PLATELET VOLUME 9.6 fL (7.4-10.4); MONO % 13.2 %; NEUT % 65.9 %; PLATELET COUNT 219 K/uL (130-400); RED BLOOD COUNT 4.22 M/uL (4.7-6.1); WHITE BLOOD COUNT 5.76 K/uL (4.8-10.8)
[2017-08-08 06:55] LABS: BUN/CREATININE RATIO 16.1 (10-20); CALCIUM 8.6 mg/dl (8.5-10.1); CREATININE 0.84 mg/dl (0.60-1.40); POTASSIUM 3.7 mmol/L (3.5-5.1)
[2017-08-08 07:25] VITALS: BP 116/69; PULSE 66; TEMP 36.8; O2SAT 95
[2017-08-08] MEDS ORDERED: THIAMINE HCL 100 MG TAB PO SCH (08:00)
--- NOTE | 2017-08-08 08:06 | DIAGNOSTIC IMAGING REPORT ---
ULTRASOUND RIGHT UPPER QUADRANT ABDOMEN CLINICAL HISTORY: Jaundice. COMPARISON STUDY: Abdominal CT an MRCP dated 08/03/2017. TECHNIQUE: Real-time, grayscale, and color flow sonography of the right upper quadrant of the abdomen was performed. Images are reviewed in the transverse and longitudinal planes. FINDINGS: Liver: The liver is top normal in size and demonstrates heterogeneously increased echotexture consistent with hepatic steatosis. There is mild intrahepatic biliary ductal dilatation. The main portal vein is patent. Gallbladder: The gallbladder is mildly distended. No shadowing gallstones are identified. Mild gallbladder wall thickening is nonspecific and there is mild edema of the gallbladder wall. This measures up to 4 mm. No pericholecystic fluid is seen. A sonographic Qureshi's sign is reportedly absent. The common bile duct measures up to 1.1 cm in diameter. Pancreas: Not visualized due to overlying bowel gas. Right kidney: Survey images of the right kidney demonstrate normal size and echotexture. There is no hydronephrosis. Ascites: None. IMPRESSION: 1. Intra and extrahepatic biliary ductal dilatation has not significantly changed from MRCP performed 5 days ago. 2. Hepatomegaly and hepatic steatosis. 3. No shadowing gallstones are identified. The gallbladder wall is thickened and mildly edematous, without convincing sonographic evidence of acute cholecystitis. If there is clinical concern for cholecystitis a nuclear hepatobiliary scan could be considered. 4. The pancreas was not well visualized due to overlying bowel gas. Electronically signed by: Roger Ni M.D. 08/08/2017 8:04 AM Dictated Date/Time: 08/08/2017 7:57 AM
[2017-08-08] MEDS ORDERED: THM100 PO (08:23)
[2017-08-08] MEDS ORDERED: FLV1 PO (08:23)
[2017-08-08] MEDS: CHOLECALCIFEROL 1000 INTER.UNIT TAB PO SCH (08:29)
[2017-08-08] MEDS: ASPIRIN 81 MG ECTAB PO SCH (08:29)
[2017-08-08 08:30] VITALS: O2SAT 95
[2017-08-08] MEDS: VALSARTAN 80 MG TAB PO SCH (08:30)
[2017-08-08] MEDS: NICOTINE 21 MG/24 HR TDSY TD SCH (08:30)
[2017-08-08] MEDS: AMLODIPINE BESYLATE 5 MG TAB PO SCH (08:30)
--- NOTE | 2017-08-08 08:35 | Discharge Instructions ---
Discharge Instructions Date of Service Aug 08, 2017. Admission Reason for Admission: Acute Pancreatitis Discharge Discharge Diagnosis / Problem: Acute Pancreatitis Discharge Goals Goal(s): Decrease discomfort, Improve function, Increase independence Activity Recommendations Activity Limitations: resume your previous activity . Instructions / Follow-Up Instructions / Follow-Up Acute Pancreatitis: - You can continue to follow a low fat diet. Recommend to eat slowly and watch for any worsening abdominal pain. - You will need to follow up with GI (Dr. Giron) to have a EUS (scope) to better look at the bile ducts and pancreas. -- This will be planned in the next 1-2 weeks to allow the swelling to go down to better see these structures - You will be given a script to have blood work done on Saturday and Saturday to monitor that your liver tests are continuing to go down to normal - Avoid alcohol during this time as your liver is responsible for filtering this out of your body and can cause your liver tests to increase Reasons to Return: - Come to the ER if you have increased abdominal pain, lack of appetite, uncontrollable nausea or vomiting, for fever > 101 Follow-Up: - We will help set up an appointment with Dr. Giron in 1-2 weeks - We will also help set up an appointment with your family doctor Current Hospital Diet Patient's current hospital diet: Low Fat Diet Discharge Diet Recommended Diet: Low Fat Diet Pending Studies Studies pending at discharge: no Laboratory Results Lipid Panel Test 08/04/17 06:37 Range/Units Triglycerides Level 185 H 0-150 mg/dl Cholesterol Level 163 0-200 mg/dl HDL Cholesterol 44 mg/dl Cholesterol/HDL Ratio 4.2 LDL Cholesterol, Calculated 82 mg/dl Medical Emergencies . Who to Call and When: Medical Emergencies: If at any time you feel your situation is an emergency, please call 911 immediately. . Non-Emergent Contact Non-Emergency issues call your: Primary Care Provider Call Non-Emergent contact if: you have a fever, your pain is concerning you, you have any medication questions . . "Provider Documentation" section prepared by Kim Nuñez. . VTE Core Measure Inpt VTE Proph given/why not?: Enoxaparin (Lovenox)SQ
[2017-08-08 09:31] VITALS: O2SAT 95
[2017-08-08 10:02] VITALS: BP 116/69; PULSE 66; TEMP 36.8; O2SAT 95
[2017-08-08 11:07] VITALS: BP 98/63; PULSE 65; TEMP 36.5; O2SAT 95
[2017-08-08 13:20] LABS: EBV EARLY ANTIGEN AB < 9.00 U/ML
--- NOTE | 2017-08-08 15:19 | Discharge Summary ---
Discharge Summary Date of Service Aug 08, 2017. (Kim Nuñez PA-C) Discharge Summary Admission Date: Aug 03, 2017 at 13:43 Discharge Date: Aug 08, 2017 Discharge Disposition: Home Principal Diagnosis: Acute Pancreatitis Problems/Secondary Diagnoses: 1. HTN 2. ETOH Use 3. Tobacco Use - Chewing 4. GERD Immunizations: Have You Had Influenza Vaccine: Unknown History of Tetanus Vaccine?: Unknown History of Pneumococcal: Unknown History of Hepatitis B Vaccine: Unknown Procedures: ABD/PELVIS IV CONTRAST ONLY ADDENDUM ADDITIONAL IMPRESSION: 6. Retroperitoneal lymphadenopathy. This is concerning either for metastatic disease in the setting of prostate cancer or other intra-abdominal malignancy versus a lymphoproliferative disease. The report will be called/faxed according to standard departmental protocol. Dictated Date/Time: 08/03/2017 11:40 AM ORIGINAL REPORT FINDINGS: Assistant [employer] topogram: Unremarkable. Lung bases: Dependent bandlike opacities likely atelectasis or scarring. Mild coronary artery calcification. Normal heart size. No pericardial or pleural effusion. Liver: Normal morphology. Hepatic steatosis. No focal lesion. Patent hepatic vasculature. Biliary: Mild intrahepatic and extra hepatic biliary ductal dilatation. Mild gallbladder wall thickening and mild gallbladder distention. Pancreas: Mild parenchymal atrophy. Mild peripancreatic fat stranding may be present. Spleen: Normal. Adrenal glands: Normal. Kidneys and ureters: Normal. No hydronephrosis. Bladder: Mild circumferential bladder wall thickening. Pelvic organs: Prostate enlargement likely secondary to benign prostatic hyperplasia. Bowel: Limited diverticulosis of the proximal sigmoid colon. Normal appendix. No bowel obstruction. Peritoneal cavity: Small amount of retroperitoneal fluid tracking along the bilateral anterior perianal spaces and peripancreatic region. Trace free intraperitoneal fluid in the superior pelvis. Lymph nodes: Multiple prominent pathologically enlarged left. Aortic lymph nodes, the largest measuring 16 mm in the short axis (series 3 image [id number]). Enlarged lymph nodes also noted in the peripancreatic and portacaval regions. Vasculature: Atherosclerosis of the normal caliber abdominal aorta. IVC patent. Abdominal wall: Small fat-containing of the hernia. Musculoskeletal: Degenerative changes of the spine. Bone island noted in the right femoral head. IMPRESSION: 1. Mild gallbladder wall thickening with mild distention. No significant pericholecystic fat stranding. These findings are not convincing for cholecystitis, and gallbladder wall thickening may be secondary to hepatic inflammation or another etiology. 2. Hepatic steatosis. Correlate with liver enzymes to exclude steatohepatitis. 3. Small retroperitoneal fluid which appears to track from the pancreatic region. Correlate with lipase to exclude pancreatitis. 4. No nephrolithiasis or hydronephrosis. 5. Mild circumferential bladder wall thickening, which could suggest chronic outlet obstruction or cystitis. Correlate with urinalysis. 6. Small amount of ascites, which may be reactive. MRCP FINDINGS: Localizer images: Unremarkable. Lung bases: Minimal dependent changes. Normal heart size. No pericardial or pleural effusion. Liver: Normal morphology. Biliary: The right anterior hepatic duct inserts onto the left hepatic duct for joining subsequently with the right posterior hepatic duct. Conventional insertion of the cystic duct. Mild intrahepatic and extra hepatic biliary ductal dilatation. The common duct measures 12 mm at the level of the midportion. No obstructing calculus or mass. Mild gallbladder wall thickening and mild gallbladder distention. No gallstones. Pancreas: Mild parenchymal atrophy. Mild prominence of the pancreatic duct at the level of the pancreatic head and neck. Trace peripancreatic fat stranding may be present. Spleen: Normal. Adrenal glands: Normal. Kidneys and ureters: Normal. No hydronephrosis. Bowel: No bowel obstruction. Peritoneal cavity: Small amount of retroperitoneal fluid. Lymph nodes: Multiple prominent pathologically enlarged left periaortic lymph nodes. Vasculature: Aorta and IVC with normal flow related enhancement. Abdominal wall: Unremarkable. Musculoskeletal: Normal bone marrow signal intensity. IMPRESSION: 1. Grossly normal appearance of the liver allowing for noncontrast technique. This does not exclude the diagnosis of hepatitis. 2. Gallbladder wall thickening likely secondary to the reported alcohol hepatitis. 3. No cholelithiasis or choledocholithiasis. 4. Intrahepatic and hepatic biliary ductal dilatation with mild pancreatic ductal prominence. No obstructing calculus or mass. This may be due to a benign stricture or inflammation at the level of the ampulla Vater. 5. Small amount of retroperitoneal fluid may emanate from the pancreatic bed. Correlate with lipase to exclude interstitial edematous pancreatitis. Consultations: 1. GI - [facility] (Kim Nuñez, GIANA) Medication Reconciliation New Medications: Folic Acid (Folic Acid) 1 Mg Tab 1 MG PO QAM for 30 Days, #30 TAB Thiamine HCl (Vitamin B-1) 100 Mg Tab 100 MG PO QAM for 30 Days, #30 TAB Continued Medications: Amlodipine (Norvasc) 10 Mg Tab 10 MG PO DAILY, TAB Aspirin (Aspirin Ec) 81 Mg Tab 81 MG PO DAILY Cholecalciferol (Vitamin D3) Unknown Strength Tab 1 TAB PO DAILY for 90 Days, TAB 3 Refills Omeprazole (Prilosec) 40 Mg Cap 40 MG PO DAILY, CAP Valsartan (Diovan) 160 Mg Tab 160 MG PO DAILY, TAB Discharge Exam Review of Systems: Constitutional: No fever, No chills Respiratory: + cough, No sputum, No shortness of breath Cardiovascular: No chest pain Abdomen: No pain, No nausea, No vomiting, No diarrhea, No constipation, No GI bleeding Musculoskeletal: No swelling, No calf pain Genitourinary - Male: No dysuria Psychiatric: No anxiety Hematologic / Lymphatic: No abnormal bleeding/bruising Integumentary: No rash Physical Exam: General Appearance: WD/WN, no apparent distress ENT: hearing grossly normal Neck: supple, no JVD, trachea midline Respiratory/Chest: lungs clear, normal breath sounds, no respiratory distress, no accessory muscle use Cardiovascular: regular rate, rhythm, no gallop, no murmur Abdomen / GI: normal bowel sounds, non tender, soft Extremities: no calf tenderness Neurologic/Psychiatric: alert, oriented x 3 (Kim Nuñez, PA-C) Hospital Course ADMISSION: 67 year old male with history of abdominal pain in the past 24 hours , which has gradually been worsening. Pain is severe, sharp, constant, periumbilical and radiates to the back. Patient reports that the last time patient ate was on . Patient states that he drinks alcohol daily and has about a 6-pack of 12 onz. beers daily. This has been ongoing for years Patient had nausea and vomiting on Saturday. Pain worsened today and patient opted to come to hospital. Patient denies any hematemesis, melena, dizziness HOSPITAL COURSE: Mr. Gasca was admitted for Acute Pancreatitis. Suspected largely biliary component but does have chronic ETOH use that may be a factor. He has a dilated biliary tree but no stones visualized. Question of sphincter of Oddi malfunction? LFTs and Lipase continue to trend down and will continue with monitoring. Clinically, pancreatitis symptoms completely resolved and tolerating a low fat diet. Due to inflammation it was decided to wait 1-2 weeks before an EUS to better visualize biliary tract and bx of lymph nodes seen on CT Abd/Pelvis. He will follow with Dr. Giron in next 1-2 weeks. Total Time Spent: Greater than 30 minutes This includes examination of the patient, discharge planning, medication reconciliation, and communication with other providers. (Kim Nuñez, VIBHAC) i personally examined pt and verified all allred points w A Joaquin PAC feeling good no pain no nausea eating well vitals noted nad breathing unlabored no pallor or icterus labs - bili actually improved, RUQ US showing stable ductal dilation pancreatitis, appearance of biliary stricture vs obstruction -for EUS in near future - stable to be done as outpt especially w no sx for days , no signs of cholangitis, and GI wanting to be able to eval fully including adenopathy/etc --- outlined "red flag" symptoms; LFTs twice in the next week, PCP f/u early next week, GI f/u 1-2 weeks EtOH abuse -no withdrawal -thiamine, folic acid stable for home Total Time Spent: Greater than 30 minutes (Jorge Pastrana D.O.) Discharge Instructions Please refer to the electronic Patient Visit Report (Discharge Instructions) for additional information. (Kim Nuñez, VIBHAC) Additional Copies To Carlos Bojorquez M.D.
[2017-08-10] MEDS ORDERED: NICO21DI35 TD (12:10)
== END 2017-08-08 13:30 | disposition home or self-care (01) | DRG 439 ==
LOC: C.EDB 10:37 → C.MSICU 13:43 → ENRESERV 13:50 → C.2T 16:38 → C.4E 08-05 17:18 → ENRESERV 08-05 17:35
PROVIDERS: ADMIT Internal Medicine Sports Medicine; ATTEND Family Medicine
DX: K85.10 Biliary acute pancreatitis without necrosis or infection (principal); R18.8 Other ascites; K85.20 Alcohol induced acute pancreatitis without necrosis or infection; F10.10 Alcohol abuse, uncomplicated; R50.9 Fever, unspecified; R59.0 Localized enlarged lymph nodes; C61 Malignant neoplasm of prostate; I10 Essential (primary) hypertension; K21.9 Gastro-esophageal reflux disease without esophagitis; F17.220 Nicotine dependence, chewing tobacco, uncomplicated; Z79.82 Long term (current) use of aspirin; Z79.899 Other long term (current) drug therapy

== ENCOUNTER 2017-08-14 07:27 | Inpatient (IN) | payer OTHER ==
[~2017-08-14] VITALS: Ht 177.8 cm; Wt 93.5 kg
[~2017-08-14 07:27] MED LIST: AMLO-114 PO; ASPI81TA28 PO; CHOL1000 PO; DVN/160 PO; FLV1 PO; NICO21DI35 TD; OMEP40CA41 PO; THM100 PO
[2017-08-14] MEDS ORDERED: HYDROmorphone INJ 1 MG/ML SYR IV STA ×2 (07:40→09:37)
[2017-08-14] MEDS ORDERED: METOCLOPRAMIDE HCL INJ 5 MG/ML 2 ML VIAL IV STA (07:40)
[2017-08-14] MEDS ORDERED: SODIUM CHLORIDE 0.9% 500ML 500 ML IV STA (07:40)
--- NOTE | 2017-08-14 07:48 | EMERGENCY ROOM VISIT NOTE ---
History Report prepared by Mir: Gretchen Bhatia Under the Supervision of: Dr. Abhijeet Strauss M.D. First contact with patient: 07:32 Chief Complaint: ABDOMINAL PAIN Stated Complaint: PAIN IN STOMACH History of Present Illness The patient is a 67 year old male who presents to the Emergency Room with complaints of persistent abdominal pain that began four and a half hours prior to arrival. He currently rates his discomfort as a 10/10 in severity. The patient reports that he was just hospitalized for acute pancreatitis, noting that he was discharged two weeks ago. He states that he has not been able to follow up with gastroenterology yet, noting that he is supposed to have an upper GI scope done. The patient states that he saw his PCP's office yesterday and had lab work done. He states that this morning his abdominal pain began. He denies any alcohol or tobacco use over the past two weeks. The patient denies taking anything for his discomfort. Source of History: patient Onset: four and a half hours prior to arrival Position: abdomen Symptom Intensity: 10/10 Timing: other (persistent) Review of Systems See HPI for pertinent positives & negatives. A total of 10 systems reviewed and were otherwise negative. Past Medical & Surgical Medical Problems: (1) Acute pancreatitis (2) Dilation of biliary tract (3) Hypertension (4) Pneumonia Family History Cancer Diabetes mellitus Heart disease Hypertension Kidney disease Kidney stones Social History Smoking Status: Former Smoker Alcohol Use: other Marital Status: Housing Status: lives with family Occupation Status: employed Current/Historical Medications Scheduled Amlodipine (Norvasc), 10 MG PO DAILY Aspirin (Aspirin Ec), 81 MG PO DAILY Cholecalciferol (Vitamin D3), 1 TAB PO DAILY Folic Acid (Folic Acid), 1 MG PO QAM Nicotine (Nicoderm Cq 21MG Patch), 1 PATCH TD DAILY Omeprazole (Prilosec), 40 MG PO DAILY Thiamine HCl (Vitamin B-1), 100 MG PO QAM Valsartan (Diovan), 160 MG PO DAILY Allergies Coded Allergies: No Known Allergies (Unverified , 08/14/17) Physical Exam Vital Signs Date Time Temp Pulse Resp B/P (MAP) Pulse Ox O2 Delivery O2 Flow Rate FiO2 08/14/17 09:45 64 18 151/91 96 08/14/17 08:25 68 149/75 96 08/14/17 08:01 80 08/14/17 07:29 36.7 78 20 181/89 97 Room Air Physical Exam GENERAL: Patient is a healthy-appearing well-nourished male HEAD: Normocephalic atraumatic EYES: Ocular movements intact pupils equal and react to light OROPHARYNX mucous membranes are moist no exudates present no erythema or edema present NECK: Supple no nuchal rigidity CHEST: Good equal expansion LUNGS: Clear and equal to auscultation CARDIAC: Normal S1 and S2 ABDOMEN: Soft distended, nontender, no guarding BACK: No CVA tenderness EXTREMITIES: No pain upon palpation normal muscle strength in all groups no clubbing cyanosis or edema NEURO: Patient is following commands and answering questions appropriately. Alert and oriented x3 Cranial Nerves 2-12 grossly intact Medical Decision & Procedures ER Provider Diagnostic Interpretation: CT results as stated below per my review and radiologist interpretation: ABD/PELVIS IV CONTRAST ONLY CT DOSE: 638.28 mGy.cm HISTORY: Pain. Nausea. Pt c/o epigastric pain TECHNIQUE: Multiaxial CT images of the abdomen and pelvis were performed following the use of intravenous contrast. A dose lowering technique was utilized adhering to the principles of ALARA. COMPARISON STUDY: 08/03/2017 FINDINGS: Lung bases are clear. Mild fatty infiltration of liver. Mild biliary ductal prominence unchanged in the prior study. Slight gallbladder distention with a trace amount of pericholecystic edema. The kidneys enhance uniformly. No evidence for hydronephrosis. Retroperitoneal adenopathy is stable. The largest heather dimension is 3 cm these are unchanged in the prior exam. Mild atherosclerotic change thoracic aorta. Infiltrative change at the root of the mesentery as well as peripancreatic region and pancreatic tail has shown near complete resolution. No evidence of dilatation of the pancreatic duct. Bowel pattern overall is considered nonobstructive. IMPRESSION: 1. Moderately improved exam with the findings of pancreatitis resolved. 2. Persistent mild wall edema of the gallbladder unchanged in the prior exam. 3. Mild stable biliary ductal prominence. 4. Unchanging retroperitoneal adenopathy. This should be further evaluated to exclude any possibility of a neoplastic or lymphomatous type process. The above report was generated using voice recognition software. It may contain grammatical, syntax or spelling errors. Electronically signed by: Jorge Bahena M.D. 08/14/2017 8:27 AM Dictated Date/Time: 08/14/2017 8:18 AM Laboratory Results 08/14/17 07:45 Red Blood Count 4.75, Mean Corpuscular Volume 92.4, Mean Corpuscular Hemoglobin 32.4, Mean Corpuscular Hemoglobin Concent 35.1, Mean Platelet Volume 9.8, Neutrophils (%) (Auto) 73.1, Lymphocytes (%) (Auto) 11.8, Monocytes (%) (Auto) 7.9, Eosinophils (%) (Auto) 5.0, Basophils (%) (Auto) 1.0, Neutrophils # (Auto) 5.96, Lymphocytes # (Auto) 0.96, Monocytes # (Auto) 0.64, Eosinophils # (Auto) 0.41, Basophils # (Auto) 0.08 08/14/17 07:45 Test 08/14/17 07:45 White Blood Count 8.15 K/uL (4.8-10.8) Red Blood Count 4.75 M/uL (4.7-6.1) Hemoglobin 15.4 g/dL (14.0-18.0) Hematocrit 43.9 % (42-52) Mean Corpuscular Volume 92.4 fL (80-100) Mean Corpuscular Hemoglobin 32.4 pg (25-34) Mean Corpuscular Hemoglobin Concent 35.1 g/dl (32-36) Platelet Count 402 K/uL (130-400) Mean Platelet Volume 9.8 fL (7.4-10.4) Neutrophils (%) (Auto) 73.1 % Lymphocytes (%) (Auto) 11.8 % Monocytes (%) (Auto) 7.9 % Eosinophils (%) (Auto) 5.0 % Basophils (%) (Auto) 1.0 % Neutrophils # (Auto) 5.96 K/uL (1.4-6.5) Lymphocytes # (Auto) 0.96 K/uL (1.2-3.4) Monocytes # (Auto) 0.64 K/uL (0.11-0.59) Eosinophils # (Auto) 0.41 K/uL (0-0.5) Basophils # (Auto) 0.08 K/uL (0-0.2) RDW Standard Deviation 43.4 fL (36.4-46.3) RDW Coefficient of Variation 12.8 % (11.5-14.5) Immature Granulocyte % (Auto) 1.2 % Immature Granulocyte # (Auto) 0.10 K/uL (0.00-0.02) Anion Gap 9.0 mmol/L (3-11) Est Creatinine Clear Calc Drug Dose 88.1 ml/min Estimated GFR () 95.8 Estimated GFR (Non- 82.6 BUN/Creatinine Ratio 16.5 (10-20) Calcium Level 9.4 mg/dl (8.5-10.1) Total Bilirubin 1.9 mg/dl (0.2-1) Direct Bilirubin 1.5 mg/dl (0-0.2) Aspartate Amino Transf (AST/SGOT) 220 U/L (15-37) Alanine Aminotransferase (ALT/SGPT) 336 U/L (12-78) Alkaline Phosphatase 379 U/L (45-117) Total Protein 8.1 gm/dl (6.4-8.2) Albumin 3.2 gm/dl (3.4-5.0) Amylase Level 112 U/L (25-115) Lipase 1710 U/L (73-393) Labs reviewed by ED physician. Medications Administered Medications (Trade) Dose Ordered Sig/Elyse Route Start Time Stop Time Status Last Admin Dose Admin Sodium Chloride 500 ml @ 999 mls/hr Q31M STAT IV 08/14/17 07:40 08/14/17 08:10 DC 08/14/17 07:59 999 MLS/HR Hydromorphone HCl (Dilaudid Inj) 1 mg NOW STAT IV 08/14/17 07:40 08/14/17 07:42 DC 08/14/17 07:50 1 MG Metoclopramide HCl (Reglan Inj) 10 mg NOW STAT IV 08/14/17 07:40 08/14/17 07:42 DC 08/14/17 07:54 10 MG Hydromorphone HCl (Dilaudid Inj) 1 mg ONE STAT IV 08/14/17 09:37 08/14/17 09:43 DC 08/14/17 09:46 1 MG ED Course 0732: Past medical records reviewed. The patient was evaluated in room A2. A complete history and physical examination was performed. 0740: Ordered Reglan Inj 10 mg IV, Dilaudid Inj 1 mg IV, Sodium Chloride 500 ml @ 999 mls/hr IV. 0756: I reevaluated the patient and he is getting medicated. At request of the patients , gastroenterology will be consulted right now. 0801: I discussed the patients case with Andrea Walters. He states that the patient should have lab work and a CT scan. 0806: I updated the patient and his at this time on the treatment plan. They are in agreement. 0828: I reevaluated the patient and he is currently pain free. I discussed the exam findings with the patient and his and I discussed the treatment plan. They verbalized complete understanding and agreement. The patient is going to be evaluated for further treatment. 0856: I discussed the patients case with LELO Biswas. He is going to evaluate the patient for further treatment. Medical Decision Differential diagnosis: Etiologies such as appendicitis, diverticulitis, PUD, biliary pathology, UTI, pancreatitis, obstruction, mesenteric ischemia, aortic pathology, infections, inflammatory bowel disease, renal colic, as well as others were entertained. This is a 67-year-old male who presents emergency department complaining of sudden onset of acute epigastric pain started last evening. The patient has not taken anything for his pain. He denies drinking any alcohol since his last admission. The patient was sent for CAT scan of the abdomen pelvis which showed a remarkably improved CAT scan. However the patient's lipase is now trending up. I did discuss the case with gastroenterology who asked that the patient be admitted to the medicine service. Medication Reconcilliation Current Medication List: was personally reviewed by me Blood Pressure Screening Patient's blood pressure: Elevated blood pressure Blood pressure disposition: Elevated BP felt to be situational, Did not require urgent referral Consults Time Called: 0756 Consulting Physician: Dr. Jefferson Gastroenterivonne Returned Call: 0801 I discussed the patients case with Andrea Walters. He states that the patient should have lab work and a CT scan. Additional Consults: Time Called: 0849 Consulted Physician: LELO Biswas Returned Call: [phone] Additional Comments: I discussed the patients case with LELO Biswas. He is going to evaluate the patient for further treatment. Impression Primary Impression: Epigastric abdominal pain Additional Impression: Acute pancreatitis Scribe Attestation The scribe's documentation has been prepared under my direction and personally reviewed by me in its entirety. I confirm that the note above accurately reflects all work, treatment, procedures, and medical decision making performed by me. Departure Information Dispostion Being Evaluated By Hospitalist Referrals Carlos Bojorquez M.D. (PCP) Problem Qualifiers Additional Impression: Acute pancreatitis Pancreatitis type: unspecified pancreatitis type Acute pancreatitis complication: unspecified Qualified Codes: K85.90 - Acute pancreatitis without necrosis or infection, unspecified
[2017-08-14 08:10] LABS: BASO ABS # 0.08 K/uL (0-0.2); COMPLETE YES; HEMATOCRIT 43.9 % (42-52); IG% 1.2 %; LYMPH % 11.8 %; LYMPH ABS # 0.96 K/uL (1.2-3.4); MEAN CELL VOLUME 92.4 fL (80-100); MEAN CORPUSCULAR HEMOGLOBIN 32.4 pg (25-34); MEAN CORPUSCULAR HGB CONC 35.1 g/dl (32-36); MEAN PLATELET VOLUME 9.8 fL (7.4-10.4); MONO % 7.9 %; NEUT % 73.1 %; PLATELET COUNT 402 K/uL (130-400); RED BLOOD COUNT 4.75 M/uL (4.7-6.1); WHITE BLOOD COUNT 8.15 K/uL (4.8-10.8)
[2017-08-14] MEDS ORDERED: OPTIRAY 320 IV PRN (08:15)
--- NOTE | 2017-08-14 08:29 | DIAGNOSTIC IMAGING REPORT ---
ABD/PELVIS IV CONTRAST ONLY CT DOSE: 638.28 mGy.cm HISTORY: Pain. Nausea. Pt c/o epigastric pain TECHNIQUE: Multiaxial CT images of the abdomen and pelvis were performed following the use of intravenous contrast. A dose lowering technique was utilized adhering to the principles of ALARA. COMPARISON STUDY: 08/03/2017 FINDINGS: Lung bases are clear. Mild fatty infiltration of liver. Mild biliary ductal prominence unchanged in the prior study. Slight gallbladder distention with a trace amount of pericholecystic edema. The kidneys enhance uniformly. No evidence for hydronephrosis. Retroperitoneal adenopathy is stable. The largest heather dimension is 3 cm these are unchanged in the prior exam. Mild atherosclerotic change thoracic aorta. Infiltrative change at the root of the mesentery as well as peripancreatic region and pancreatic tail has shown near complete resolution. No evidence of dilatation of the pancreatic duct. Bowel pattern overall is considered nonobstructive. IMPRESSION: 1. Moderately improved exam with the findings of pancreatitis resolved. 2. Persistent mild wall edema of the gallbladder unchanged in the prior exam. 3. Mild stable biliary ductal prominence. 4. Unchanging retroperitoneal adenopathy. This should be further evaluated to exclude any possibility of a neoplastic or lymphomatous type process. The above report was generated using voice recognition software. It may contain grammatical, syntax or spelling errors. Electronically signed by: Jorge Bahena M.D. 08/14/2017 8:27 AM Dictated Date/Time: 08/14/2017 8:18 AM
[2017-08-14 08:36] LABS: BUN/CREATININE RATIO 16.5 (10-20); CALCIUM 9.4 mg/dl (8.5-10.1); CREATININE 0.96 mg/dl (0.60-1.40)
[2017-08-14 08:44] LABS: POTASSIUM 4.3 mmol/L (3.5-5.1)
[2017-08-14] MEDS ORDERED: ONDANSETRON INJ 2 MG/ML 2 ML VIAL IV PRN ×2 (10:00)
[2017-08-14] MEDS ORDERED: MAGNESIUM HYDROXIDE SUSP 30 ML UDC PO PRN (10:00)
[2017-08-14] MEDS ORDERED: HYDROmorphone INJ 1 MG/ML SYR IV PRN (10:00)
[2017-08-14] MEDS ORDERED: POLYETHYLENE (MIRALAX) 17 GM PACK PO PRN (10:00)
[2017-08-14] MEDS ORDERED: HYDROmorphone INJ 0.5 MG/0.5 ML SYR IV PRN (10:00)
[2017-08-14] MEDS ORDERED: ALUMINUM/MAGNESIUM/SIMETH (MAALOX MAX) 30 ML UDC PO PRN (10:00)
--- NOTE | 2017-08-14 10:00 | History and Physical ---
History & Physical Date & Time of Service: Aug 14, 2017 at 10:00 Chief Complaint: Pain In Stomach Primary Care Physician: Carlos Bojorquez M.D. History of Present Illness Source: patient, family Mr. Gasca is a 67 y/o male with PMHx of HTN, GERD, Prostate CA, and ETOH use ( quit x 2 weeks) who presents to the ED complaining of abdominal pain. Patient was recently admitted this month for pancreatitis which questioned ETOH involvement vs biliary. Clinically pancreatitis resolved however LFTs/Bili and Lipase remained elevated but were trending down. He was pain free for a few days prior to that discharge. He reports some mild mid-abdominal pain on Saturday that easily resolved. Around 299 today, he woke up to severe stabbing pain that expands from the LUQ to RUQ and into his R back. He states the pain was a 10/10 and reported to the ED. Pain has a waxing and waning quality but does not completely resolve. Reporting this pain was worse than his pancreatitis previously however this time he is not having N/V or fever/chills. No urinary symptoms and last BM was yesterday without melena/hematochezia. He reports that he has been compliant with a low-fat diet and his has been enforcing this. He has not had ETOH since before his first pancreatitis attack approx. 2 weeks ago. He has not had his follow-up appointment yet to consider EUS. Past Medical/Surgical History Medical Problems: (1) Hypertension Status: Chronic (2) Pneumonia Status: Resolved Family History Cancer Diabetes mellitus Heart disease Hypertension Kidney disease Kidney stones Social History Smoking Status: Former Smoker Alcohol Use: none (Recent cessation x approx. 2 weeks) Marital Status: Occupational Status: employed Immunizations History of Influenza Vaccine: Unknown History of Tetanus Vaccine?: Unknown History of Pneumococcal: Unknown History of Hepatitis B Vaccine: Unknown Multi-Drug Resistant Organisms History of MDRO: No Allergies Coded Allergies: No Known Allergies (Unverified , 08/14/17) Home Medications Scheduled Amlodipine (Norvasc), 10 MG PO DAILY Aspirin (Aspirin Ec), 81 MG PO DAILY Cholecalciferol (Vitamin D3), 1 TAB PO DAILY Folic Acid (Folic Acid), 1 MG PO QAM Nicotine (Nicoderm Cq 21MG Patch), 1 PATCH TD DAILY Omeprazole (Prilosec), 40 MG PO DAILY Thiamine HCl (Vitamin B-1), 100 MG PO QAM Valsartan (Diovan), 160 MG PO DAILY Review of Systems Constitutional: No fever, No chills Respiratory: No shortness of breath Cardiovascular: No chest pain, No palpitations Abdomen: + pain, No nausea, No vomiting, No diarrhea, No constipation, No GI bleeding Genitourinary - Male: No dysuria Endocrine: No fatigue Hematologic / Lymphatic: No abnormal bleeding/bruising, No clotting problems Physical Exam Vital Signs Date Time Temp Pulse Resp B/P (MAP) Pulse Ox O2 Delivery O2 Flow Rate FiO2 08/14/17 08:25 68 149/75 96 08/14/17 08:01 80 08/14/17 07:29 36.7 78 20 181/89 97 Room Air General Appearance: WD/WN, no apparent distress Head: normocephalic, atraumatic ENT: hearing grossly normal Neck: supple, no JVD, trachea midline Respiratory/Chest: lungs clear, normal breath sounds, no respiratory distress, no accessory muscle use Cardiovascular: regular rate, rhythm, no gallop, no murmur Abdomen/GI: normal bowel sounds, non tender, + distended Back: no CVA tenderness Extremities/Musculoskelatal: no calf tenderness, no pedal edema Neurologic/Psych: alert, oriented x 3 Skin: normal color, warm/dry Diagnostics Laboratory Results Results Past 24 Hours Test 08/14/17 07:45 Range/Units White Blood Count 8.15 4.8-10.8 K/uL Red Blood Count 4.75 4.7-6.1 M/uL Hemoglobin 15.4 14.0-18.0 g/dL Hematocrit 43.9 42-52 % Mean Corpuscular Volume 92.4 80-100 fL Mean Corpuscular Hemoglobin 32.4 25-34 pg Mean Corpuscular Hemoglobin Concent 35.1 32-36 g/dl Platelet Count 402 130-400 K/uL Mean Platelet Volume 9.8 7.4-10.4 fL Neutrophils (%) (Auto) 73.1 % Lymphocytes (%) (Auto) 11.8 % Monocytes (%) (Auto) 7.9 % Eosinophils (%) (Auto) 5.0 % Basophils (%) (Auto) 1.0 % Neutrophils # (Auto) 5.96 1.4-6.5 K/uL Lymphocytes # (Auto) 0.96 1.2-3.4 K/uL Monocytes # (Auto) 0.64 0.11-0.59 K/uL Eosinophils # (Auto) 0.41 0-0.5 K/uL Basophils # (Auto) 0.08 0-0.2 K/uL RDW Standard Deviation 43.4 36.4-46.3 fL RDW Coefficient of Variation 12.8 11.5-14.5 % Immature Granulocyte % (Auto) 1.2 % Immature Granulocyte # (Auto) 0.10 0.00-0.02 K/uL Sodium Level 139 136-145 mmol/L Potassium Level 4.3 3.5-5.1 mmol/L Chloride Level 109 98-107 mmol/L Carbon Dioxide Level 21 21-32 mmol/L Anion Gap 9.0 3-11 mmol/L Blood Urea Nitrogen 16 7-18 mg/dl Creatinine 0.96 0.60-1.40 mg/dl Est Creatinine Clear Calc Drug Dose 88.1 ml/min Estimated GFR () 95.8 Estimated GFR (Non- 82.6 BUN/Creatinine Ratio 16.5 10-20 Random Glucose 199 70-99 mg/dl Calcium Level 9.4 8.5-10.1 mg/dl Total Bilirubin 1.9 0.2-1 mg/dl Direct Bilirubin 1.5 0-0.2 mg/dl Aspartate Amino Transf (AST/SGOT) 220 15-37 U/L Alanine Aminotransferase (ALT/SGPT) 336 12-78 U/L Alkaline Phosphatase 379 45-117 U/L Total Protein 8.1 6.4-8.2 gm/dl Albumin 3.2 3.4-5.0 gm/dl Amylase Level 112 25-115 U/L Lipase 1710 73-393 U/L Diagnostic Radiology ABD/PELVIS IV CONTRAST ONLY FINDINGS: Lung bases are clear. Mild fatty infiltration of liver. Mild biliary ductal prominence unchanged in the prior study. Slight gallbladder distention with a trace amount of pericholecystic edema. The kidneys enhance uniformly. No evidence for hydronephrosis. Retroperitoneal adenopathy is stable. The largest heather dimension is 3 cm these are unchanged in the prior exam. Mild atherosclerotic change thoracic aorta. Infiltrative change at the root of the mesentery as well as peripancreatic region and pancreatic tail has shown near complete resolution. No evidence of dilatation of the pancreatic duct. Bowel pattern overall is considered nonobstructive. IMPRESSION: 1. Moderately improved exam with the findings of pancreatitis resolved. 2. Persistent mild wall edema of the gallbladder unchanged in the prior exam. 3. Mild stable biliary ductal prominence 4. Unchanging retroperitoneal adenopathy. This should be further evaluated to exclude any possibility of a neoplastic or lymphomatous type process. MRCP FINDINGS: Overall, similar intra and extra hepatic bile duct dilatation. The common bile duct measured between 9 and 12 mm. Slight irregularity of the main pancreatic duct. The main pancreatic duct demonstrates focal dilatation at the neck measuring up to 8 mm. Mild dilatation of the distal main pancreatic duct at the head of the pancreas measuring up to 5 mm. The proximal pancreatic duct at the tail is normal in caliber. No filling defects seen within the common bile duct or main pancreatic duct. Diffuse gallbladder wall edema/thickening which has progressed. This measures up to 1 cm along the medial wall. Trace fluid surrounding the second portion of the duodenum has improved. This suggests resolving pancreatitis. Mild bilateral perinephric edema has also improved. The adrenal glands are unremarkable. No hepatic or splenic masses. Retroperitoneal lymphadenopathy is again noted. Dominant lymph node measures approximately 3.1 x 2.1 cm. IMPRESSION: 1. Overall similar intra and extra hepatic bile duct dilatation as well as mild dilatation of the main pancreatic duct as described above. No filling defects seen within the common bile duct or main pancreatic duct. 2. Progression of the diffuse gallbladder wall thickening/edema. This could be due to hepatitis or pancreatitis. Cholecystitis is considered less likely given the appearance. 3. No gallstones identified. 4. Trace edema surrounding the second portion of the duodenum which has improved. This is consistent with a resolving pancreatitis. 5. Persistent retroperitoneal lymphadenopathy. A neoplastic process remains the diagnosis of exclusion. Impression Assessment and Plan Mr. Gasca is a 67 y/o male with PMHx of HTN, GERD, Prostate CA, and ETOH use ( quit x 2 weeks) who presents to the ED complaining of abdominal pain. Acute Pancreatitis with Biliary Dilation/GB Wall Edema/Elevated Lipase: - Imaging supports resolved pancreatitis but presents with elevated Lipase and clinical fitting of pancreatitis - Discussed case with Dr. Jefferson and he will be on consult - ordered repeat MRCP as inflammation has resolved - Pain management with Dilaudid - LR at 200 mL/hr HTN: - Norvasc 10 mg daily and Valsartan 160 mg daily H/O ETOH Use: - Abstinence since initial pancreatitis on previous admission - no withdrawal symptoms on previous admission and no signs of withdrawal now - Will continue Thiamine 100 mg daily and Folic Acid 1 mg daily - Will monitor for Signs/symptoms of withdrawal and have Ativan PRN if needed Tobacco Use: - Continue nicotine patch DVT Prophylaxis: Heparin 5000 units SC BID Disposition: - Antigen testing pending; will need EUS this admission possibly Saturday Level of Care Med/Surg Resuscitation Status FULL RESUSCITATION VTE Prophylaxis VTE Risk Assessment Done? Y/N: Yes Risk Level: Moderate Given or contraindicated: Unfractionated heparin SQ Social Service Consult None Apply Note Attending Attestation: Pt seen/examined, chart reviewed, care plan d/w SHALA Nuñez. I agree w/ the allred components of her documentation. 67yo male with h/o etoh abuse - recent admission for acute pancreatitis, either due to etoh or biliary tract disease - presenting with recurrent abdominal pain. Labs c/w acute pancreatitis as well as abnormal LFTs suggestive of biliary obstruction. During my visit he had just had clear liquids which caused significant abdominal pain. Patient reports no etoh use in 2+ weeks. PMH, PSH, allergies, meds, sochx, famhx, ros - reviewed VSS no fever gen - mild distress due to pain eyes - no icterus mouth - MMM heart - RRR, s1, s2, no murmur lungs - CTA b/l abd - mildly distended, tender high epigastric region and RUQ, BS+, no HSM ext - no edema labs - abnormal LFTs elevated lipase CT with resolving pancreatitis and ongoing intra/extra-hepatic biliary ductal dilatation A/P: 1. acute pancreatitis 2. biliary tract obstruction 3. h/o etoh abuse copious LR NPO due to pain even with clear liquids GI consultation MRCP obtained, no CBD stone HIDA on Saturday endoscopic u/s next week need for ERCP?? defer on antibiotics at this time Jones Maguire MD
[2017-08-14] MEDS ORDERED: IV FLUIDS COMPLETED PRN (11:15)
[2017-08-14 12:15] VITALS: Ht 177.8 cm; Wt 93.5 kg
--- NOTE | 2017-08-14 12:21 | DIAGNOSTIC IMAGING REPORT ---
MRCP HISTORY: Pancreatitis TECHNIQUE: MRCP of the abdomen was performed without the use of intravenous contrast. COMPARISON STUDY: Abdomen and pelvis CT 08/14/2017. MRCP 08/03/2017. FINDINGS: Overall, similar intra and extra hepatic bile duct dilatation. The common bile duct measured between 9 and 12 mm. Slight irregularity of the main pancreatic duct. The main pancreatic duct demonstrates focal dilatation at the neck measuring up to 8 mm. Mild dilatation of the distal main pancreatic duct at the head of the pancreas measuring up to 5 mm. The proximal pancreatic duct at the tail is normal in caliber. No filling defects seen within the common bile duct or main pancreatic duct. Diffuse gallbladder wall edema/thickening which has progressed. This measures up to 1 cm along the medial wall. Trace fluid surrounding the second portion of the duodenum has improved. This suggests resolving pancreatitis. Mild bilateral perinephric edema has also improved. The adrenal glands are unremarkable. No hepatic or splenic masses. Retroperitoneal lymphadenopathy is again noted. Dominant lymph node measures approximately 3.1 x 2.1 cm. IMPRESSION: 1. Overall similar intra and extra hepatic bile duct dilatation as well as mild dilatation of the main pancreatic duct as described above. No filling defects seen within the common bile duct or main pancreatic duct. 2. Progression of the diffuse gallbladder wall thickening/edema. This could be due to hepatitis or pancreatitis. Cholecystitis is considered less likely given the appearance. 3. No gallstones identified. 4. Trace edema surrounding the second portion of the duodenum which has improved. This is consistent with a resolving pancreatitis. 5. Persistent retroperitoneal lymphadenopathy. A neoplastic process remains the diagnosis of exclusion. Electronically signed by: Eder Vitale M.D. 08/14/2017 12:20 PM Dictated Date/Time: 08/14/2017 12:11 PM
[2017-08-14] MEDS: LACTATED RINGER'S 1000ML 1,000 ML IV SCH ×3 (12:22→20:47)
[2017-08-14 12:28] VITALS: BP 160/82; PULSE 62; TEMP 36.5; O2SAT 96
[2017-08-14] MEDS: NICOTINE 21 MG/24 HR TDSY TD SCH (12:45)
[2017-08-14 14:36] LABS: URINE APPEARANCE CLEAR (CLEAR); URINE COLOR DK YELLOW; URINE NITRITE NEG (NEG); URINE SPECIFIC GRAVITY > 1.045 (1.000-1.030); UROBILINOGEN NEG (NEG)
[2017-08-14 14:37] LABS: URINE BILIRUBIN 1+ (NEG)
[2017-08-14 14:38] LABS: MANUAL MICROSCOPIC REQUIRED? NO; REVIEW REQ? NO
[2017-08-14 14:58] VITALS: BP 155/84; PULSE 71; TEMP 36.9; O2SAT 96
[2017-08-14 15:33] LABS: ISTAT CREATININE 0.8 mg/dl (0.6-1.3); ISTAT IONIZED CALCIUM 1.18 mmol/l (1.12-1.32)
--- NOTE | 2017-08-14 16:59 | GASTROINTESTINAL CONSULTATION ---
DATE OF CONSULTATION: 08/14/2017 REASON FOR CONSULTATION: Abdominal pain and abnormal CT scan. HISTORY OF PRESENT ILLNESS: The patient is a 67-year-old patient who was recently hospitalized with pancreatitis. The patient was found to have a dilated bile duct and thickened gallbladder wall, but no stones and no obvious obstruction. His liver tests were abnormal and his lipase was significantly elevated. There was a lot of inflammation around the pancreas and he had some significantly enlarged abdominal lymph nodes up to 3 cm. At that time, his evaluation did not show any other potential cause other than alcohol use. The patient states that he has been abstinent from alcohol since his hospitalization. The plan was for him to go home and recover and reduce the edema around his pancreas, so that he could have an endoscopic ultrasound as an outpatient with potential biopsy of lymph nodes. The patient was home and did well for about 3 days, but then came back today after awakening around 03:00 a.m. with severe epigastric pain radiating to the back. There was no nausea and vomiting. The patient has been on a low fat diet as an outpatient and tolerating it well. PAST MEDICAL HISTORY: Remarkable for hypertension. MEDICATIONS: Include Diovan, vitamin B1, Prilosec, Nicoderm, folic acid, vitamin D, baby aspirin, and Norvasc. ALLERGIES: None. FAMILY HISTORY: Positive for cancer, diabetes, heart disease, hypertension, and kidney stones. SOCIAL HISTORY: The patient is . He is employed. He is a former smoker. He drank alcohol fairly regularly up until a few weeks ago. REVIEW OF SYSTEMS: Positive for epigastric pain. Remainder is negative. PHYSICAL EXAMINATION: GENERAL: The patient appears in no acute distress. VITAL SIGNS: Blood pressure is 150/75, pulse 68, and oxygen saturation is 96% on room air. ABDOMEN: Shows no scars. His abdomen is distended. There is some tenderness in the right upper quadrant. No masses or rebound. LABORATORY DATA: Shows a normal CBC. Bilirubin is 1.9. AST 220, ALT 336, and alkaline phosphatase 379. Lipase is [address] scan shows a 1-cm thick gallbladder wall with common bile duct, measuring up to 9-12 mm, but no filling defects. The pancreatic duct is also slightly dilated up to 8 mm. No obvious mass. There is some retroperitoneal adenopathy up to 3 cm in size. MRCP confirmed these findings with decreased edema since his previous scans during his last hospitalization. IMPRESSION: The patient has abdominal pain, pancreatic inflammation, bile duct and gallbladder abnormalities, but no stones or obvious obstruction. His liver tests are abnormal and he has enlarged lymph nodes. At this point, I am concerned about tumor that may be lymphoma. He could have an ampullary tumor. Plan on getting a biliary scan at this point to see how well his gallbladder is functioning and seeing how well it drains into the duodenum. We will get tumor markers including CEA, CA99 and CA27-29. He will be on low fat diet for now and we will probably need to proceed with an endoscopic ultrasound during this hospitalization. Dr. Giron will be out for the holiday until Saturday and hopefully, we can get it scheduled at the time. I will follow the patient during his hospital stay.
[2017-08-14] MEDS: HEPARIN SOD 5000 UNIT/0.5 ML CARP SQ SCH (20:50)
[2017-08-14 22:43] VITALS: BP 118/83; PULSE 72; TEMP 37.1; O2SAT 96
[2017-08-15] VITALS (7 sets, daily range): BP systolic 130–166; BP diastolic 75–85; PULSE 59–97; TEMP 36.9–39.2; O2SAT 94–96
[2017-08-15] MEDS: LACTATED RINGER'S 1000ML 1,000 ML IV SCH ×5 (01:30→21:25)
[2017-08-15 06:10] LABS: BASO % 0.8 %; BASO ABS # 0.05 K/uL (0-0.2); COMPLETE YES; EOS % 6.1 %; IG% 0.7 %; LYMPH % 12.9 %; LYMPH ABS # 0.76 K/uL (1.2-3.4); MEAN CELL VOLUME 92.7 fL (80-100); MEAN CORPUSCULAR HEMOGLOBIN 31.7 pg (25-34); MEAN CORPUSCULAR HGB CONC 34.2 g/dl (32-36); MEAN PLATELET VOLUME 9.5 fL (7.4-10.4); MONO % 10.7 %; NEUT % 68.8 %; PLATELET COUNT 324 K/uL (130-400)
[2017-08-15 07:02] LABS: BUN/CREATININE RATIO 10.7 (10-20); CALCIUM 8.7 mg/dl (8.5-10.1); CREATININE 0.78 mg/dl (0.60-1.40); POTASSIUM 3.8 mmol/L (3.5-5.1)
[2017-08-15 07:16] LABS: ALB/GLOB RATIO 0.7 (0.9-2)
[2017-08-15] MEDS: NICOTINE 21 MG/24 HR TDSY TD SCH (09:03)
[2017-08-15] MEDS: THIAMINE HCL 100 MG TAB PO SCH (09:03)
[2017-08-15] MEDS: AMLODIPINE BESYLATE 5 MG TAB PO SCH (09:04)
[2017-08-15] MEDS: PANTOprazole SOD 40 MG TAB PO SCH (09:04)
[2017-08-15] MEDS: ASPIRIN 81 MG ECTAB PO SCH (09:04)
[2017-08-15] MEDS: CHOLECALCIFEROL 1000 INTER.UNIT TAB PO SCH (09:04)
[2017-08-15] MEDS: VALSARTAN 80 MG TAB PO SCH (09:04)
[2017-08-15] MEDS: HEPARIN SOD 5000 UNIT/0.5 ML CARP SQ SCH ×2 (09:09→21:08)
[2017-08-15] MEDS: HYDROmorphone INJ 0.5 MG/0.5 ML SYR IV PRN ×2 (10:00→13:26)
[2017-08-15] MEDS ORDERED: MEPERIDINE HCL 50 MG/ML CARP IV PRN (14:15)
[2017-08-15] MEDS: MEPERIDINE HCL 25 MG/ML CARP IV PRN ×2 (17:34→21:08)
--- NOTE | 2017-08-15 18:23 | Progress Note ---
Subjective Date of Service: Aug 15, 2017. Subjective Pt evaluation today including: conversation w/ patient, physical exam, chart review, lab review, review of studies, review of inpatient medication list abdominal pain better than last night, but still fairly intense. off and on - sometimes right after gettign IV pain meds, but no other clear inciting or alleviating factors. no EtOH at home, was trying to be careful w low fat diet. Problem List Medical Problems: (1) Abdominal lymphadenopathy Status: Acute (2) Epigastric abdominal pain Status: Acute (3) Pancreatitis Status: Acute (4) Retroperitoneal fluid collection Status: Acute Review of Systems all other ROS otherwise negative except for as above Objective Vital Signs Date Time Temp Pulse Resp B/P (MAP) Pulse Ox O2 Delivery O2 Flow Rate FiO2 08/15/17 17:29 39.2 82 153/85 (107) 08/15/17 16:00 Room Air 08/15/17 15:01 37.6 70 18 166/80 (108) 96 Room Air 08/15/17 09:20 97 08/15/17 07:33 36.9 59 18 146/78 (100) 95 Room Air 08/15/17 07:20 Room Air 08/14/17 23:15 Room Air 08/14/17 22:43 37.1 72 18 118/83 (95) 96 Room Air 08/14/17 20:00 Room Air Physical Exam General Appearance: no apparent distress Eyes: EOMI ENT: hearing grossly normal Neck: trachea midline Respiratory/Chest: no respiratory distress, no accessory muscle use Extremities: normal range of motion Neurologic/Psychiatric: tank processor II-XII nml as tested, alert, normal mood/affect Skin: normal color Laboratory Results Last 24 Hours Test 08/14/17 20:48 08/15/17 05:44 08/15/17 08:05 08/15/17 11:57 Bedside Glucose 120 mg/dl 122 mg/dl 123 mg/dl White Blood Count 5.90 K/uL Red Blood Count 4.10 M/uL Hemoglobin 13.0 g/dL Hematocrit 38.0 % Mean Corpuscular Volume 92.7 fL Mean Corpuscular Hemoglobin 31.7 pg Mean Corpuscular Hemoglobin Concent 34.2 g/dl Platelet Count 324 K/uL Mean Platelet Volume 9.5 fL Neutrophils (%) (Auto) 68.8 % Lymphocytes (%) (Auto) 12.9 % Monocytes (%) (Auto) 10.7 % Eosinophils (%) (Auto) 6.1 % Basophils (%) (Auto) 0.8 % Neutrophils # (Auto) 4.06 K/uL Lymphocytes # (Auto) 0.76 K/uL Monocytes # (Auto) 0.63 K/uL Eosinophils # (Auto) 0.36 K/uL Basophils # (Auto) 0.05 K/uL RDW Standard Deviation 44.0 fL RDW Coefficient of Variation 13.0 % Immature Granulocyte % (Auto) 0.7 % Immature Granulocyte # (Auto) 0.04 K/uL Sodium Level 137 mmol/L Potassium Level 3.8 mmol/L Chloride Level 105 mmol/L Carbon Dioxide Level 24 mmol/L Anion Gap 8.0 mmol/L Blood Urea Nitrogen 8 mg/dl Creatinine 0.78 mg/dl Est Creatinine Clear Calc Drug Dose 108.4 ml/min Estimated GFR () 109.8 Estimated GFR (Non- 94.7 BUN/Creatinine Ratio 10.7 Random Glucose 137 mg/dl Calcium Level 8.7 mg/dl Total Bilirubin 4.1 mg/dl Direct Bilirubin 3.2 mg/dl Aspartate Amino Transf (AST/SGOT) 398 U/L Alanine Aminotransferase (ALT/SGPT) 508 U/L Alkaline Phosphatase 413 U/L Total Protein 6.5 gm/dl Albumin 2.7 gm/dl Globulin 3.8 gm/dl Albumin/Globulin Ratio 0.7 Lipase 773 U/L Assessment and Plan Acute Recurrent Pancreatitis with Biliary Dilation/GB Wall Edema/Elevated Lipase: - suspect all due to biliary duct disease - will definitely need EUS as soon as can be facilitated - GB wall edema likely secondary to biliary backup - but HIDA can assist in determining how severe; also less likely that GB disease is the entire inciting factor (this would be if EUS yielded retained stone not seen on imaging) - pain control, supportive care - EUS, HIDA in near future - change pain meds since he's noticing pain right after admin of meds and possibly sphincter of oddi spasm HTN: - Norvasc 10 mg daily and Valsartan 160 mg daily - continue to follow BP H/O ETOH Use: - Abstinence since initial pancreatitis on previous admission - doubt this played a role in current pancreatitis, although could've played a role in prior episode - Will continue Thiamine 100 mg daily and Folic Acid 1 mg daily - Will monitor for Signs/symptoms of withdrawal and have Ativan PRN if needed, although doubt this will be needed Tobacco Use: - Continue nicotine patch DVT Prophylaxis: Heparin 5000 units SC BID Disposition: - Antigen testing pending; will need EUS this admission possibly Saturday
[2017-08-15] MEDS: IBUPROFEN 200 MG TAB PO PRN (18:44)
[2017-08-16] VITALS (13 sets, daily range): BP systolic 129–151; BP diastolic 66–82; PULSE 64–79; TEMP 36.2–38.3; O2SAT 92–96
[2017-08-16] MEDS: MEPERIDINE HCL 25 MG/ML CARP IV PRN (00:23)
[2017-08-16] MEDS: IBUPROFEN 200 MG TAB PO PRN (00:29)
[2017-08-16] MEDS: LACTATED RINGER'S 1000ML 1,000 ML IV SCH ×4 (02:40→17:59)
[2017-08-16 05:49] LABS: BASO % 0.3 %; BASO ABS # 0.03 K/uL (0-0.2); COMPLETE YES; EOS % 1.7 %; IG% 0.3 %; LYMPH % 3.1 %; MEAN CELL VOLUME 92.4 fL (80-100); MEAN CORPUSCULAR HEMOGLOBIN 31.8 pg (25-34); MEAN CORPUSCULAR HGB CONC 34.4 g/dl (32-36); MEAN PLATELET VOLUME 9.8 fL (7.4-10.4); MONO % 6.1 %; NEUT % 88.5 %; PLATELET COUNT 297 K/uL (130-400); RED BLOOD COUNT 4.22 M/uL (4.7-6.1); WHITE BLOOD COUNT 9.81 K/uL (4.8-10.8)
[2017-08-16 06:32] LABS: ALB/GLOB RATIO 0.7 (0.9-2); BUN/CREATININE RATIO 8.7 (10-20); CALCIUM 8.6 mg/dl (8.5-10.1); CREATININE 0.96 mg/dl (0.60-1.40); POTASSIUM 3.5 mmol/L (3.5-5.1)
[2017-08-16] MEDS: THIAMINE HCL 100 MG TAB PO SCH (09:00)
[2017-08-16] MEDS: AMLODIPINE BESYLATE 5 MG TAB PO SCH (09:00)
[2017-08-16] MEDS: HEPARIN SOD 5000 UNIT/0.5 ML CARP SQ SCH ×2 (09:00→21:14)
[2017-08-16] MEDS: CHOLECALCIFEROL 1000 INTER.UNIT TAB PO SCH (09:00)
[2017-08-16] MEDS: ASPIRIN 81 MG ECTAB PO SCH (09:00)
[2017-08-16] MEDS: VALSARTAN 80 MG TAB PO SCH (09:00)
[2017-08-16] MEDS: PANTOprazole SOD 40 MG TAB PO SCH (09:00)
[2017-08-16] MEDS ORDERED: NURSING VERBAL MED ORDER ONE (10:00)
[2017-08-16] MEDS: CEFOXITIN IV 2,000 MG in DEXTROSE 5% 50ML 50 ML IV SCH ×3 (10:00→22:29)
[2017-08-16] MEDS ORDERED: FENTANYL CITRATE INJ 50 MCG/1 ML 2 ML VIAL ONE (10:36)
[2017-08-16] MEDS ORDERED: MIDAZOLAM HCL 1 MG/ML 2ML VIAL ONE (10:36)
--- NOTE | 2017-08-16 10:56 | History and Physical ---
History & Physical Date Aug 16, 2017. Chief Complaint fever, abnl lft History of Present Illness The patient is a 67 year old male with complaints of fever and abnl lft's. Past Medical/Surgical History Medical Problems: (1) Acute pancreatitis (2) Dilation of biliary tract (3) Hypertension (4) Pneumonia Allergies Coded Allergies: No Known Allergies (Unverified , 08/14/17) Home Medications Scheduled Amlodipine (Norvasc), 10 MG PO DAILY Aspirin (Aspirin Ec), 81 MG PO DAILY Cholecalciferol (Vitamin D3), 1 TAB PO DAILY Folic Acid (Folic Acid), 1 MG PO QAM Nicotine (Nicoderm Cq 21MG Patch), 1 PATCH TD DAILY Omeprazole (Prilosec), 40 MG PO DAILY Thiamine HCl (Vitamin B-1), 100 MG PO QAM Valsartan (Diovan), 160 MG PO DAILY Physical Examination Skin: warm/dry, no rash Eyes: normal inspection, EOMI, sclerae normal ENT: normal ENT inspection, pharynx normal Head: normocephalic, atraumatic Neck: supple, no adenopathy, trachea midline Respiratory/Chest: lungs clear, normal breath sounds, no respiratory distress Cardiovascular: regular rate, rhythm, no edema, no murmur Abdomen / GI: normal bowel sounds, non tender Neurologic/Psych: no motor/sensory deficits, alert, normal reflexes, oriented x 3 ASA Classification: ASA Class III Plan of Treatment For ERCP
[2017-08-16] MEDS ORDERED: INDOMETHACIN 50 MG SUPP PR SCH (11:00)
[2017-08-16] MEDS: METRONIDAZOLE / NSS 500 MG in PREMIXED NSS 100 ML IV SCH ×2 (11:00→18:00)
[2017-08-16] MEDS ORDERED: LIDOCAINE HCL 2% 2 ML VIAL (20MG/ML) ONE (11:20)
[2017-08-16] MEDS ORDERED: SUCCINYLCHOLINE CHLORIDE 20 MG/ML 10 ML VIAL IV ONE (11:20)
[2017-08-16] MEDS ORDERED: ONDANSETRON INJ 2 MG/ML 2 ML VIAL ONE (11:20)
[2017-08-16] MEDS ORDERED: PROPOFOL IV EMULSION 10 MG/ML 20 ML VIAL IV ONE (11:20)
[2017-08-16] MEDS ORDERED: DEXAMETHASONE SOD INJ 4 MG/ML VIAL ONE (11:20)
[2017-08-16] MEDS ORDERED: PHENYLEPHRINE 100MCG/ML 5ML SYR ONE (11:20)
[2017-08-16] MEDS ORDERED: LARYING-O-JET KIT (LTA) ONE ×2 (11:43)
--- NOTE | 2017-08-16 11:49 | GI REPORT ---
Procedure Date: 08/16/2017 11:01 AM Procedure: ERCP Indications: Jaundice, Abnormal liver function test, Fever Medicines: General Anesthesia Complications: No immediate complications. Estimated Blood Loss: Estimated blood loss: none. Procedure: Pre-Anesthesia Assessment: - Prior to the procedure, a History and Physical was performed, and patient medications, allergies and sensitivities were reviewed. The patient's tolerance of previous anesthesia was reviewed. - The risks and benefits of the procedure and the sedation options and risks were discussed with the patient. All questions were answered and informed consent was obtained. After obtaining informed consent, the scope was passed under direct vision. Throughout the procedure, the patient's blood pressure, pulse, and oxygen saturations were monitored continuously. The Scope was introduced through the mouth, and advanced to the duodenum and used to inject contrast into the bile duct and ventral pancreatic duct. The ERCP was accomplished without difficulty. The patient tolerated the procedure well. Findings: The major papilla was normal. Superficial cannulation of and contrast injection into the ventral pancreatic duct was accomplished. I personally interpreted the pancreatic duct images. The flow of contrast through the ducts was poor. Segmental irregularity of the pancreatic duct was seen in the pancreatic duct in the body of the pancreas. The bile duct was deeply cannulated. Contrast was injected. The lower third of the main bile duct contained a single mild stenosis. Biliary sphincterotomy was made with a monofilament Autotome sphincterotome using ERBE electrocautery. There was no post-sphincterotomy bleeding. To discover objects, the biliary tree was swept with an 8 mm balloon starting at the bifurcation. Mucus was swept from the duct. Cells for cytology were obtained by brushing. One 10 Fr by 7 cm plastic stent with two internal flaps was placed into the common bile duct. Bile flowed through the stent. The stent was in good position. Impression: - The major papilla appeared normal. - An irregularity was found in the pancreatic duct in the body of the pancreas. - A mild biliary stricture was found. The stricture was indeterminate. - A sphincterotomy was performed. - The biliary tree was swept and mucus was found. Recommendation: - [facility] care. Danial Jefferson M.D. Danial Jefferson MD 08/16/2017 11:49:22 AM This report has been signed electronically. Note Initiated On: 08/16/2017 11:01 AM I attest to the content of the Intraoperative Record and orders documented therein, exceptions below
--- NOTE | 2017-08-16 11:49 | DIAGNOSTIC IMAGING REPORT ---
ERCP CLINICAL HISTORY: ERCP IN OR COMPARISON STUDY: CT of the abdomen and pelvis and MRCP August 14, 2017. FLUOROSCOPY TIME: 1 minute and 39 seconds. FINDINGS: 10 fluoroscopic images of the right upper quadrant during ERCP were obtained. These images demonstrate cannulation of the ampulla and common bile duct. There is contrast within the common bile duct as well as portions of the intrahepatic bile ducts. There is contrast within the pancreatic duct. Subsequent images demonstrate placement of a common bile duct stent. IMPRESSION: Fluoroscopic images from ERCP demonstrating placement of a common bile duct stent Electronically signed by: Alfredo Ayala M.D. 08/16/2017 11:48 AM Dictated Date/Time: 08/16/2017 11:46 AM
--- NOTE | 2017-08-16 12:06 | PROGRESS NOTE ---
DATE: 08/16/2017 HISTORY OF PRESENT ILLNESS: The patient developed fever and abnormal liver tests overnight with worsening bilirubin up to 6.1, alk phos went from 413 to 474 and lipase went from 773 to 1062. The patient was started on Flagyl and Mefoxin. Consent was obtained and the patient underwent an ERCP today. ERCP showed a normal papilla. The bile duct was injected after the pancreatic duct, pancreatic duct was injected with just a small amount of contrast but appeared somewhat irregular in the body, but filled out to the tail. The bile duct appeared to have slight narrowing in the distal bile duct. Sphincterotomy was performed and the duct was swept with an 8 mm balloon. There was some thick green bile expressed, but no pus or stones or debris. Cytology was performed with a brush in the distal bile duct and then a 10-English 7 cm stent was placed and position confirmed in good position. The patient tolerated the procedure well. At this point, we will continue the antibiotics and hopefully be able to proceed with endoscopic ultrasound on Saturday.
[2017-08-16] MEDS ORDERED: ATROPINE SULFATE 0.1 MG/ML 5ML SYR IV PRN (12:15)
[2017-08-16] MEDS ORDERED: EpHEDrine SULFATE INJ 50 MG/ML AMP IV PRN (12:15)
--- NOTE | 2017-08-16 12:22 | Anesthesiology Progress Note ---
Anesthesia Post Op Note Date & Time Aug 16, 2017 at 12:21 Vital Signs Pain Intensity: 0 Vital Signs Past 12 Hours Date Time Temp Pulse Resp B/P (MAP) Pulse Ox O2 Delivery O2 Flow Rate FiO2 08/16/17 12:20 36.9 70 18 137/74 97 Nasal Cannula 2 08/16/17 12:10 72 18 135/72 96 Nasal Cannula 3 08/16/17 12:00 75 18 140/73 96 Nasal Cannula 3 08/16/17 11:51 36.7 81 18 158/77 97 Oxymask 5 08/16/17 10:36 36.8 77 18 146/73 (97) 95 Room Air 08/16/17 10:13 38.0 75 20 151/66 (94) 94 Room Air 08/16/17 09:10 37.6 08/16/17 08:20 Room Air 08/16/17 06:43 37.8 79 20 139/67 (91) 94 Room Air 08/16/17 01:29 37.8 08/16/17 00:30 Room Air 08/16/17 00:29 38.3 Notes Mental Status: alert / awake / arousable, participated in evaluation Pt Amnestic to Procedure: Yes Nausea / Vomiting: adequately controlled Pain: adequately controlled Airway Patency, RR, SpO2: stable & adequate BP & HR: stable & adequate Hydration State: stable & adequate Anesthetic Complications: no major complications apparent
[2017-08-16] MEDS: NICOTINE 21 MG/24 HR TDSY TD SCH (14:37)
[2017-08-16] MEDS ORDERED: VANCOMYCIN INJ 1,000 MG in SODIUM CHLORIDE 0.9% 250ML 250 ML IV STA (17:20)
[2017-08-16] MEDS ORDERED: VANCOMYCIN INJ 2,500 MG in SODIUM CHLORIDE 0.9% 500ML 500 ML IV STA (17:37)
[2017-08-16] MEDS ORDERED: VANCOMYCIN CONSULT ACTIVE PRN (18:00)
--- NOTE | 2017-08-16 18:17 | Pharmacy Progress Note ---
Pharmacy Antibiotic Consult Date of Service: Aug 16, 2017. Pharmacy Dosing Scope Pharmacy is consulted to initiate vancomycin IV dosing therapy, order appropriate labs and adjust drug dose/frequency. Subjective The patient is a 67 year old male admitted on Aug 14, 2017 at 21:34. Objective Height (Feet): 5 Height (Inches): 10.00 Weight (Kilograms): 93.500 Lab Results (24hrs): Test 08/16/17 05:12 White Blood Count 9.81 K/uL (4.8-10.8) Red Blood Count 4.22 M/uL (4.7-6.1) Hemoglobin 13.4 g/dL (14.0-18.0) Hematocrit 39.0 % (42-52) Mean Corpuscular Volume 92.4 fL (80-100) Mean Corpuscular Hemoglobin 31.8 pg (25-34) Mean Corpuscular Hemoglobin Concent 34.4 g/dl (32-36) Platelet Count 297 K/uL (130-400) Mean Platelet Volume 9.8 fL (7.4-10.4) Neutrophils (%) (Auto) 88.5 % Lymphocytes (%) (Auto) 3.1 % Monocytes (%) (Auto) 6.1 % Eosinophils (%) (Auto) 1.7 % Basophils (%) (Auto) 0.3 % Neutrophils # (Auto) 8.68 K/uL (1.4-6.5) Lymphocytes # (Auto) 0.30 K/uL (1.2-3.4) Monocytes # (Auto) 0.60 K/uL (0.11-0.59) Eosinophils # (Auto) 0.17 K/uL (0-0.5) Basophils # (Auto) 0.03 K/uL (0-0.2) RDW Standard Deviation 43.5 fL (36.4-46.3) RDW Coefficient of Variation 12.9 % (11.5-14.5) Immature Granulocyte % (Auto) 0.3 % Immature Granulocyte # (Auto) 0.03 K/uL (0.00-0.02) Sodium Level 136 mmol/L (136-145) Potassium Level 3.5 mmol/L (3.5-5.1) Chloride Level 104 mmol/L (98-107) Carbon Dioxide Level 24 mmol/L (21-32) Anion Gap 8.0 mmol/L (3-11) Blood Urea Nitrogen 8 mg/dl (7-18) Creatinine 0.96 mg/dl (0.60-1.40) Est Creatinine Clear Calc Drug Dose 88.1 ml/min Estimated GFR () 95.8 Estimated GFR (Non- 82.6 BUN/Creatinine Ratio 8.7 (10-20) Random Glucose 125 mg/dl (70-99) Calcium Level 8.6 mg/dl (8.5-10.1) Total Bilirubin 6.1 mg/dl (0.2-1) Direct Bilirubin 5.0 mg/dl (0-0.2) Aspartate Amino Transf (AST/SGOT) 378 U/L (15-37) Alanine Aminotransferase (ALT/SGPT) 550 U/L (12-78) Alkaline Phosphatase 474 U/L (45-117) Total Protein 6.5 gm/dl (6.4-8.2) Albumin 2.7 gm/dl (3.4-5.0) Globulin 3.8 gm/dl (2.5-4.0) Albumin/Globulin Ratio 0.7 (0.9-2) Lipase 2062 U/L (73-393) Assessment & Plan Assessment * 67 yo M admitted with acute recurrent pancreatitis w biliary dilation on 08/14 * Blood cultures obtained 08/15 with 2/2 GPC (note: these were obtained prior to surgery 08/16) * Patient is s/p intra-abdominal surgery 08/16 (cholangiopancreatogram, sphincterotomy, common bile duct stent placement) * Vancomycin started 08/16 PM for GPC bacteremia. Cefoxitin and metronidazole also started earlier today. * Patient was febrile this AM. WBC wnl. * Vancomycin * Goal trough 15-20 mcg/mL * Will initiate with aggressive dosing 2nd confirmed bacteremia * Vancomycin 26 mg/kg IV x1 then 16 mg/kg IV dosed close to estimated vancomycin t1/2 of 9 hr * Trough prior to 4th overall dose Plan * Vancomycin 2500 mg IV x1 then 1500 mg IV q10h * Trough 08/17 @ 2330 Pharmacy will continue to follow and will adjust dose/frequency as necessary. Thank you
--- NOTE | 2017-08-16 18:26 | Progress Note ---
Subjective Date of Service: Aug 16, 2017. Subjective Pt evaluation today including: conversation w/ patient, conversation w/ family , physical exam, chart review, lab review, review of studies, conversation w/ commercial solar sales consultant, review of inpatient medication list fevers through the night no pain no nausea bilirubin went up further d/w GI taken promptly for ERCP revisited later feeling good extensive discussions w pt and , answered all questions to the best of my ability Problem List Medical Problems: (1) Abdominal lymphadenopathy Status: Acute (2) Epigastric abdominal pain Status: Acute (3) Pancreatitis Status: Acute (4) Retroperitoneal fluid collection Status: Acute Review of Systems all other ROS otherwise negative except for as above Objective Vital Signs Date Time Temp Pulse Resp B/P (MAP) Pulse Ox O2 Delivery O2 Flow Rate FiO2 08/16/17 16:42 94 Room Air 08/16/17 15:35 36.2 73 18 134/82 (99) 94 Room Air 08/16/17 14:44 36.3 65 20 142/80 (100) 92 Room Air 08/16/17 13:40 36.8 65 20 145/78 (100) 96 Nasal Cannula 2.0 08/16/17 13:08 36.6 72 20 144/78 (100) 96 Nasal Cannula 2.0 08/16/17 12:42 36.5 73 20 142/78 (99) 95 Nasal Cannula 2.0 08/16/17 12:40 95 Nasal Cannula 2.0 08/16/17 12:29 68 20 136/71 97 Nasal Cannula 2 08/16/17 12:20 36.9 70 18 137/74 97 Nasal Cannula 2 08/16/17 12:10 72 18 135/72 96 Nasal Cannula 3 08/16/17 12:00 75 18 140/73 96 Nasal Cannula 3 08/16/17 11:51 36.7 81 18 158/77 97 Oxymask 5 08/16/17 10:36 36.8 77 18 146/73 (97) 95 Room Air 08/16/17 10:13 38.0 75 20 151/66 (94) 94 Room Air 08/16/17 09:10 37.6 08/16/17 08:20 Room Air 08/16/17 06:43 37.8 79 20 139/67 (91) 94 Room Air 08/16/17 01:29 37.8 08/16/17 00:30 Room Air 08/16/17 00:29 38.3 08/15/17 22:45 37.7 78 16 130/75 (93) 94 Room Air 08/15/17 19:46 37.8 08/15/17 18:46 38.1 Physical Exam General Appearance: no apparent distress Eyes: EOMI ENT: hearing grossly normal Neck: trachea midline Respiratory/Chest: no respiratory distress, no accessory muscle use Abdomen: non tender (no guarding/rebound/rigidity), soft Extremities: normal range of motion Neurologic/Psychiatric: 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, alert, normal mood/affect Skin: + jaundice Laboratory Results Last 24 Hours Test 08/16/17 05:12 White Blood Count 9.81 K/uL Red Blood Count 4.22 M/uL Hemoglobin 13.4 g/dL Hematocrit 39.0 % Mean Corpuscular Volume 92.4 fL Mean Corpuscular Hemoglobin 31.8 pg Mean Corpuscular Hemoglobin Concent 34.4 g/dl Platelet Count 297 K/uL Mean Platelet Volume 9.8 fL Neutrophils (%) (Auto) 88.5 % Lymphocytes (%) (Auto) 3.1 % Monocytes (%) (Auto) 6.1 % Eosinophils (%) (Auto) 1.7 % Basophils (%) (Auto) 0.3 % Neutrophils # (Auto) 8.68 K/uL Lymphocytes # (Auto) 0.30 K/uL Monocytes # (Auto) 0.60 K/uL Eosinophils # (Auto) 0.17 K/uL Basophils # (Auto) 0.03 K/uL RDW Standard Deviation 43.5 fL RDW Coefficient of Variation 12.9 % Immature Granulocyte % (Auto) 0.3 % Immature Granulocyte # (Auto) 0.03 K/uL Sodium Level 136 mmol/L Potassium Level 3.5 mmol/L Chloride Level 104 mmol/L Carbon Dioxide Level 24 mmol/L Anion Gap 8.0 mmol/L Blood Urea Nitrogen 8 mg/dl Creatinine 0.96 mg/dl Est Creatinine Clear Calc Drug Dose 88.1 ml/min Estimated GFR () 95.8 Estimated GFR (Non- 82.6 BUN/Creatinine Ratio 8.7 Random Glucose 125 mg/dl Calcium Level 8.6 mg/dl Total Bilirubin 6.1 mg/dl Direct Bilirubin 5.0 mg/dl Aspartate Amino Transf (AST/SGOT) 378 U/L Alanine Aminotransferase (ALT/SGPT) 550 U/L Alkaline Phosphatase 474 U/L Total Protein 6.5 gm/dl Albumin 2.7 gm/dl Globulin 3.8 gm/dl Albumin/Globulin Ratio 0.7 Lipase 2062 U/L Assessment and Plan Acute Recurrent Pancreatitis with Biliary Dilation/GB Wall Edema/Elevated Lipase: - suspect all due to biliary duct disease cholangitis -abx started, taken promptly for ERCP -still will need EUS to better define pathology/anatomy/adenopathy - but cholangitis situation now improved w biliary drainage gram positive bacteremia -rajesh relates to above, abx as above, but also vanco pending ID&S -d/w family extensively HTN: - Norvasc 10 mg daily and Valsartan 160 mg daily - continue to follow BP H/O ETOH Use: - Abstinence since initial pancreatitis on previous admission - doubt this played a role in current pancreatitis, although could've played a role in prior episode - Will continue Thiamine 100 mg daily and Folic Acid 1 mg daily - Will monitor for Signs/symptoms of withdrawal and have Ativan PRN if needed, although doubt this will be needed Tobacco Use: - Continue nicotine patch DVT Prophylaxis: Heparin 5000 units SC BID Disposition: - Antigen testing pending; will need EUS this admission probably Saturday
[2017-08-16] MEDS ORDERED: VANCOMYCIN INJ 1,000 MG in SODIUM CHLORIDE 0.9% 250ML 250 ML IV SCH (21:00)
[2017-08-17] MEDS: LACTATED RINGER'S 1000ML 1,000 ML IV SCH ×5 (01:00→20:50)
[2017-08-17] MEDS: METRONIDAZOLE / NSS 500 MG in PREMIXED NSS 100 ML IV SCH ×3 (01:53→19:16)
[2017-08-17] MEDS: CEFOXITIN IV 2,000 MG in DEXTROSE 5% 50ML 50 ML IV SCH ×4 (03:33→21:49)
[2017-08-17] MEDS: VANCOMYCIN INJ 1,500 MG in SODIUM CHLORIDE 0.9% 500ML 500 ML IV SCH ×2 (04:28→14:35)
[2017-08-17 05:58] LABS: COMPLETE YES; HEMATOCRIT 37.3 % (42-52); IG% 0.5 %; LYMPH % 4.5 %; LYMPH ABS # 0.27 K/uL (1.2-3.4); MEAN CORPUSCULAR HEMOGLOBIN 30.7 pg (25-34); MEAN CORPUSCULAR HGB CONC 33.8 g/dl (32-36); MEAN PLATELET VOLUME 9.9 fL (7.4-10.4); MONO % 7.8 %; NEUT % 87.2 %; PLATELET COUNT 297 K/uL (130-400); WHITE BLOOD COUNT 6.05 K/uL (4.8-10.8)
[2017-08-17 06:59] LABS: ALB/GLOB RATIO 0.6 (0.9-2); CALCIUM 8.3 mg/dl (8.5-10.1); CREATININE 1.18 mg/dl (0.60-1.40); POTASSIUM 3.5 mmol/L (3.5-5.1)
[2017-08-17 07:05] VITALS: BP 132/71; PULSE 60; TEMP 36.9; O2SAT 97
[2017-08-17] MEDS: NICOTINE 21 MG/24 HR TDSY TD SCH (08:55)
[2017-08-17] MEDS: HEPARIN SOD 5000 UNIT/0.5 ML CARP SQ SCH ×2 (08:58→20:49)
[2017-08-17] MEDS: CHOLECALCIFEROL 1000 INTER.UNIT TAB PO SCH (09:43)
[2017-08-17] MEDS: THIAMINE HCL 100 MG TAB PO SCH (09:43)
[2017-08-17] MEDS: AMLODIPINE BESYLATE 5 MG TAB PO SCH (09:44)
[2017-08-17] MEDS: ASPIRIN 81 MG ECTAB PO SCH (09:44)
[2017-08-17] MEDS: PANTOprazole SOD 40 MG TAB PO SCH (09:44)
[2017-08-17] MEDS: VALSARTAN 80 MG TAB PO SCH (09:44)
--- NOTE | 2017-08-17 10:05 | PROGRESS NOTE ---
DATE: 08/17/2017 SUBJECTIVE: The patient reports no abdominal pain and is quite hungry at this time. OBJECTIVE: His vital signs have returned to normal. He is afebrile. LABORATORY DATA: His blood cultures too added to a growing gram-positive coccus. He is currently on Mefoxin, Flagyl and IV vancomycin now. His ERCP yesterday was successful and on imaging the bile and pancreatic duct, there is possible slight stricture in the distal bile duct, which was brushed and after sphincterotomy and balloon sweeping, a 10-Maltese 7-cm stent was placed. The patient's lipase has returned to normal from 1999 yesterday and has a bilirubin, which has gone from 6.1-3.4 overnight and alkaline phosphatase has gone from 474-425. IMPRESSION: The patient's labs are significantly improving after his ERCP intervention yesterday. Cytology is pending at this time. His CEA is normal at 0.5. CA 19-9 and CA 27-29 are both pending. PLAN: To proceed with an endoscopic ultrasound on Saturday or Saturday with Dr. Giron. We will advance to a low-fat diet today.
--- NOTE | 2017-08-17 12:07 | Progress Note ---
Subjective Date of Service: Aug 17, 2017. Subjective pt feels hungry and much less abdominal discomfort, no other issues awaiting EUS next week. Problem List Medical Problems: (1) Abdominal lymphadenopathy Status: Acute (2) Epigastric abdominal pain Status: Acute (3) Pancreatitis Status: Acute (4) Retroperitoneal fluid collection Status: Acute Review of Systems Constitutional: No fever, No chills Respiratory: No cough, No sputum Cardiac: No chest pain, No orthopnea Abdomen: + pain (improved dramatically), + constipation, No nausea, No vomiting Objective Vital Signs Date Time Temp Pulse Resp B/P (MAP) Pulse Ox O2 Delivery O2 Flow Rate FiO2 08/16/17 23:45 Room Air 08/16/17 22:50 37.0 64 16 129/74 (92) 95 Room Air 08/16/17 16:42 94 Room Air 08/16/17 15:35 36.2 73 18 134/82 (99) 94 Room Air 08/16/17 14:44 36.3 65 20 142/80 (100) 92 Room Air 08/16/17 13:40 36.8 65 20 145/78 (100) 96 Nasal Cannula 2.0 08/16/17 13:08 36.6 72 20 144/78 (100) 96 Nasal Cannula 2.0 08/16/17 12:42 36.5 73 20 142/78 (99) 95 Nasal Cannula 2.0 08/16/17 12:40 95 Nasal Cannula 2.0 08/16/17 12:29 68 20 136/71 97 Nasal Cannula 2 08/16/17 12:20 36.9 70 18 137/74 97 Nasal Cannula 2 08/16/17 12:10 72 18 135/72 96 Nasal Cannula 3 08/16/17 12:00 75 18 140/73 96 Nasal Cannula 3 08/16/17 11:51 36.7 81 18 158/77 97 Oxymask 5 08/16/17 10:36 36.8 77 18 146/73 (97) 95 Room Air 08/16/17 10:13 38.0 75 20 151/66 (94) 94 Room Air 08/16/17 09:10 37.6 08/16/17 08:20 Room Air Physical Exam General Appearance: WD/WN, + mild distress Eyes: PERRL, EOMI Respiratory/Chest: chest non-tender, lungs clear, normal breath sounds Cardiovascular: regular rate, rhythm, no murmur Abdomen: normal bowel sounds, soft, + tenderness Extremities: no pedal edema, no calf tenderness Neurologic/Psychiatric: alert, oriented x 3 Laboratory Results Last 24 Hours Test 08/17/17 05:03 White Blood Count 6.05 K/uL Red Blood Count 4.10 M/uL Hemoglobin 12.6 g/dL Hematocrit 37.3 % Mean Corpuscular Volume 91.0 fL Mean Corpuscular Hemoglobin 30.7 pg Mean Corpuscular Hemoglobin Concent 33.8 g/dl Platelet Count 297 K/uL Mean Platelet Volume 9.9 fL Neutrophils (%) (Auto) 87.2 % Lymphocytes (%) (Auto) 4.5 % Monocytes (%) (Auto) 7.8 % Eosinophils (%) (Auto) 0.0 % Basophils (%) (Auto) 0.0 % Neutrophils # (Auto) 5.28 K/uL Lymphocytes # (Auto) 0.27 K/uL Monocytes # (Auto) 0.47 K/uL Eosinophils # (Auto) 0.00 K/uL Basophils # (Auto) 0.00 K/uL RDW Standard Deviation 42.7 fL RDW Coefficient of Variation 12.8 % Immature Granulocyte % (Auto) 0.5 % Immature Granulocyte # (Auto) 0.03 K/uL Sodium Level 136 mmol/L Potassium Level 3.5 mmol/L Chloride Level 105 mmol/L Carbon Dioxide Level 23 mmol/L Anion Gap 8.0 mmol/L Creatinine 1.18 mg/dl Est Creatinine Clear Calc Drug Dose 71.7 ml/min Estimated GFR () 74.6 Estimated GFR (Non- 64.4 BUN/Creatinine Ratio 11.0 Random Glucose 177 mg/dl Calcium Level 8.3 mg/dl Total Bilirubin 3.4 mg/dl Direct Bilirubin 2.8 mg/dl Aspartate Amino Transf (AST/SGOT) 210 U/L Alanine Aminotransferase (ALT/SGPT) 427 U/L Alkaline Phosphatase 425 U/L Total Protein 6.4 gm/dl Albumin 2.4 gm/dl Globulin 4.0 gm/dl Albumin/Globulin Ratio 0.6 Lipase 236 U/L Assessment and Plan 67 M with cholecystitis/cholangitis and acute pancreatitis, history of alcohol abuse cholangitis-abx started, taken promptly for ERCP, marked improvement with sweep stent of CBD and sphincterotomy -still will need EUS to better define pathology/anatomy/adenopathy - cholangitis improved w biliary drainage gram positive bacteremia, felt secondary to cholangitis source, vancomycin added to typical GI coverage, given bacteremia, will confer with GI medicine regarding Gen surgery consult or perhaps HIDA in the future HTN: controlled on Norvasc 10 mg daily and Valsartan 160 mg daily H/O ETOH Use: Abstinence since initial pancreatitis on previous admission - continue Thiamine 100 mg daily and Folic Acid 1 mg daily monitor for Signs/symptoms of withdrawal Tobacco Use: Continue nicotine patch DVT Prophylaxis: Heparin 5000 units SC BID
[2017-08-17 14:48] VITALS: BP 135/77; PULSE 56; TEMP 36.8; O2SAT 95
[2017-08-17] MEDS: LORAZEPAM INJ 1 MG in SYRINGE 0.5 ML IV PRN (20:49)
[2017-08-17 23:13] VITALS: BP 117/74; PULSE 51; TEMP 37; O2SAT 94
[2017-08-17] MEDS ORDERED: VANCOMYCIN TROUGH ONE (23:30)
[2017-08-18] MEDS: VANCOMYCIN INJ 1,500 MG in SODIUM CHLORIDE 0.9% 500ML 500 ML IV SCH ×3 (00:30→20:41)
[2017-08-18] MEDS: LACTATED RINGER'S 1000ML 1,000 ML IV SCH ×4 (02:38→17:44)
[2017-08-18] MEDS: METRONIDAZOLE / NSS 500 MG in PREMIXED NSS 100 ML IV SCH ×2 (02:38→09:09)
[2017-08-18] MEDS: CEFOXITIN IV 2,000 MG in DEXTROSE 5% 50ML 50 ML IV SCH ×2 (03:57→09:09)
[2017-08-18 07:53] VITALS: BP 157/83; PULSE 52; TEMP 36.6; O2SAT 95
[2017-08-18] MEDS: VALSARTAN 80 MG TAB PO SCH (08:45)
[2017-08-18] MEDS: AMLODIPINE BESYLATE 5 MG TAB PO SCH (08:45)
[2017-08-18] MEDS: PANTOprazole SOD 40 MG TAB PO SCH (08:45)
[2017-08-18] MEDS: ASPIRIN 81 MG ECTAB PO SCH (08:45)
[2017-08-18] MEDS: NICOTINE 21 MG/24 HR TDSY TD SCH (08:45)
[2017-08-18] MEDS: CHOLECALCIFEROL 1000 INTER.UNIT TAB PO SCH (08:45)
[2017-08-18] MEDS: THIAMINE HCL 100 MG TAB PO SCH (08:46)
[2017-08-18] MEDS: HEPARIN SOD 5000 UNIT/0.5 ML CARP SQ SCH ×2 (08:52→20:40)
[2017-08-18 08:55] LABS: BUN/CREATININE RATIO 14.8 (10-20); CALCIUM 8.4 mg/dl (8.5-10.1); CREATININE 1.07 mg/dl (0.60-1.40); POTASSIUM 3.6 mmol/L (3.5-5.1)
[2017-08-18 09:02] LABS: ALB/GLOB RATIO 0.6 (0.9-2)
--- NOTE | 2017-08-18 10:17 | Pharmacy Progress Note ---
Pharmacy Antibiotic Prog Note Date of Service Aug 18, 2017. Subjective The patient is currently receiving vancomycin 1500 mg IV q10h The patient is currently on day # 3 of vancomycin IV therapy. Objective Height (Feet): 5 Height (Inches): 10.00 Weight (Kilograms): 93.500 Lab Results (24hrs): Test 08/17/17 23:26 08/18/17 08:25 Vancomycin Level Trough 15.4 mcg/ml (SEE COMMENT) Potassium Level 3.6 mmol/L (3.5-5.1) Chloride Level 111 mmol/L (98-107) Carbon Dioxide Level 21 mmol/L (21-32) Anion Gap 11.0 mmol/L (3-11) Blood Urea Nitrogen 16 mg/dl (7-18) Creatinine 1.07 mg/dl (0.60-1.40) Est Creatinine Clear Calc Drug Dose 79.0 ml/min Estimated GFR () 84.0 Estimated GFR (Non- 72.5 BUN/Creatinine Ratio 14.8 (10-20) Random Glucose 110 mg/dl (70-99) Calcium Level 8.4 mg/dl (8.5-10.1) Total Bilirubin 1.7 mg/dl (0.2-1) Aspartate Amino Transf (AST/SGOT) 131 U/L (15-37) Alanine Aminotransferase (ALT/SGPT) 347 U/L (12-78) Alkaline Phosphatase 388 U/L (45-117) Total Protein 6.9 gm/dl (6.4-8.2) Albumin 2.7 gm/dl (3.4-5.0) Globulin 4.2 gm/dl (2.5-4.0) Albumin/Globulin Ratio 0.6 (0.9-2) Lipase 391 U/L (73-393) Assessment & Plan Assessment * 67 yo M admitted on 08/14 w acute recurrent pancreatitis and cholecystitis/ cholangitis. S/p ERCP 08/16 * PMH: EtOH abuse * Cefoxitin and metronidazole started 08/16 for cholangitis. Vancomycin added 08/16 PM for 2/2 GPC bacteremia. * Blood cultures obtained 08/15 with alfaro-sensitive Strep salivarius (note: these were obtained prior to surgery 08/16) * No fever since 08/16. WBC wnl. Strep salivarius clinical significance * Viridans group Strep * Common colonizer of oral mucosa * Bacteremia with Strep salivarius can be associated with endocarditis * Strep bovis can occasionally be mis-identified as Strep salivarius * Strep bovis more likely to be of hepato-biliary origin than Strep salivarius * Strep bovis associated with colonic neoplasm Vancomycin * Goal trough 15-20 mcg/mL * Trough of 15.4 mcg/mL is therapeutic * Will continue current dose and check repeat trough in 48 hours to evaluate for accumulation Plan * Consider discontinuation of cefoxitin and vancomycin and switch to ceftriaxone 2 g IV q24h. Continue metronidazole at current dose (500 mg IV q8h) * Continue vancomycin 1500 mg IV q10h for now * Trough 08/20 @ 0130 * Strongly suggest ID consult for clinical significance of isolation of Strep salivarius Pharmacy will continue to follow and will adjust dose/frequency as necessary. Thank you
--- NOTE | 2017-08-18 14:15 | Progress Note ---
Subjective Date of Service: Aug 18, 2017. Subjective pt feels much better and it taking po well, has blood cultures showing strep Problem List Medical Problems: (1) Abdominal lymphadenopathy Status: Acute (2) Epigastric abdominal pain Status: Acute (3) Pancreatitis Status: Acute (4) Retroperitoneal fluid collection Status: Acute Review of Systems Constitutional: No fever, No chills Respiratory: No cough, No shortness of breath Cardiac: No chest pain, No edema Abdomen: No pain, No nausea, No vomiting, No diarrhea Male : No dysuria, No urinary frequency Objective Vital Signs Date Time Temp Pulse Resp B/P (MAP) Pulse Ox O2 Delivery O2 Flow Rate FiO2 08/18/17 07:53 36.6 52 18 157/83 (107) 95 Room Air 08/18/17 07:10 Room Air 08/17/17 23:15 Room Air 08/17/17 23:13 37.0 51 16 117/74 (88) 94 Room Air 08/17/17 16:10 Room Air 08/17/17 14:48 36.8 56 16 135/77 (96) 95 Room Air Physical Exam General Appearance: WD/WN, + mild distress Eyes: PERRL, EOMI Respiratory/Chest: chest non-tender, lungs clear, normal breath sounds Cardiovascular: regular rate, rhythm, no murmur Abdomen: normal bowel sounds, non tender, soft Extremities: no pedal edema, no calf tenderness Neurologic/Psychiatric: alert, oriented x 3 Laboratory Results Last 24 Hours Test 08/17/17 23:26 08/18/17 08:25 Vancomycin Level Trough 15.4 mcg/ml Sodium Level 143 mmol/L Potassium Level 3.6 mmol/L Chloride Level 111 mmol/L Carbon Dioxide Level 21 mmol/L Anion Gap 11.0 mmol/L Blood Urea Nitrogen 16 mg/dl Creatinine 1.07 mg/dl Est Creatinine Clear Calc Drug Dose 79.0 ml/min Estimated GFR () 84.0 Estimated GFR (Non- 72.5 BUN/Creatinine Ratio 14.8 Random Glucose 110 mg/dl Calcium Level 8.4 mg/dl Total Bilirubin 1.7 mg/dl Aspartate Amino Transf (AST/SGOT) 131 U/L Alanine Aminotransferase (ALT/SGPT) 347 U/L Alkaline Phosphatase 388 U/L Total Protein 6.9 gm/dl Albumin 2.7 gm/dl Globulin 4.2 gm/dl Albumin/Globulin Ratio 0.6 Lipase 391 U/L Assessment and Plan 67 M with cholecystitis/cholangitis and acute pancreatitis, history of alcohol abuse cholangitis-abx started, taken promptly for ERCP, marked and continueal improvement with sweep stent of CBD and sphincterotomy -still will need EUS to better define pathology/anatomy/adenopathy - cholangitis improved w biliary drainage gram positive bacteremia,strep felt secondary to cholangitis source, vancomycin added to typical GI coverage, given bacteremia, will confer with GI medicine regarding Gen surgery consult or perhaps HIDA in the future, will de escalate anaerobic coverage HTN: continues to be controlled on Norvasc 10 mg daily and Valsartan 160 mg daily H/O ETOH Use: Abstinence since initial pancreatitis on previous admission - continue Thiamine 100 mg daily and Folic Acid 1 mg daily No Signs/symptoms of withdrawal Tobacco Use: Continue nicotine patch DVT Prophylaxis: Heparin 5000 units SC BID
--- NOTE | 2017-08-18 14:34 | PROGRESS NOTE ---
DATE: 08/18/2017 SUBJECTIVE: The patient reports no abdominal pain. He has had 3 semi-formed bowel movements in the last 48 hours. His vital signs are normal. He is afebrile on antibiotics. His blood cultures are growing Streptococcus salivarius. I think it is an oral organism. I am not sure whether this represents a true pathogen in his bloodstream. Infectious disease may be weighing on this aspect. His brush cytology as well as bile duct are pending as are his CA 99 and CA 27-29. His lipase continues to remain normal and his liver tests continue to improve. His bilirubin today is 1.7, down from 3.4 yesterday. Alkaline phosphatase is down to 388 from 425. He continues to consume a low-fat diet. IMPRESSION: The patient has a lot of unanswered questions concerning his gram-positive coccus in his bloodstream, the thickened wall of his gallbladder, the pancreatic anatomy as well as abdominal adenopathy. I think infectious disease may be consulted by the hospitalists concerning his positive blood cultures and we will see if we can get him scheduled tomorrow with Dr. Giron for an endoscopic ultrasound. He may also go for a HIDA scan tomorrow as well to further define the anatomy and function of his gallbladder.
[2017-08-18 14:52] VITALS: BP 146/75; PULSE 58; TEMP 36.9; O2SAT 94
[2017-08-18 22:45] VITALS: BP 144/84; PULSE 58; TEMP 37.3; O2SAT 93
[2017-08-19] VITALS (7 sets, daily range): BP systolic 127–158; BP diastolic 63–83; PULSE 52–73; TEMP 36.2–37; O2SAT 93–97
[2017-08-19] MEDS: LACTATED RINGER'S 1000ML 1,000 ML IV SCH ×6 (00:13→23:08)
[2017-08-19] MEDS: LORAZEPAM INJ 1 MG in SYRINGE 0.5 ML IV PRN (00:24)
[2017-08-19] MEDS: VANCOMYCIN INJ 1,500 MG in SODIUM CHLORIDE 0.9% 500ML 500 ML IV SCH (05:33)
[2017-08-19 06:46] LABS: BUN/CREATININE RATIO 12.9 (10-20); CALCIUM 8.6 mg/dl (8.5-10.1); CREATININE 0.89 mg/dl (0.60-1.40); POTASSIUM 3.6 mmol/L (3.5-5.1)
[2017-08-19 06:49] LABS: ALB/GLOB RATIO 0.7 (0.9-2)
[2017-08-19] MEDS: HEPARIN SOD 5000 UNIT/0.5 ML CARP SQ SCH ×2 (09:00→20:58)
[2017-08-19] MEDS ORDERED: MoRPHine SULFATE 2 MG/ML CARP ONE (09:14)
--- NOTE | 2017-08-19 10:02 | DIAGNOSTIC IMAGING REPORT ---
HEPATOBILIARY HIDA IMAGING CLINICAL HISTORY: 67 years-old Male with abnl lft, thick GB wall. Abnormal liver function tests TECHNIQUE: Sequential anterior abdominal images were obtained through 60 minutes following the intravenous administration of 5.4 mCi of technetium-99m Choletec. 2 mg morphine sulfate IV was administered as well. COMPARISON: CT abdomen and pelvis 08/14/2017 FINDINGS: There is prompt, uniform accumulation of the tracer by the liver. There is normal filling of the intrahepatic ducts, common bile duct and normal excretion of the tracer into the duodenum. Initially, the gallbladder does not fill with radiotracer. After the administration of morphine, the gallbladder fills with radiotracer at the 65 minute interval. Mild enterogastric reflux noted. IMPRESSION: 1. No evidence of cystic or common bile ductal obstruction or acute cholecystitis. 2. Delayed filling of the gallbladder after the administration of morphine may reflect chronic cholecystitis. 3. Mild enterogastric reflux. The above report was generated using voice recognition software. It may contain grammatical, syntax or spelling errors. Electronically signed by: Sonido Galindo M.D. 08/19/2017 10:00 AM Dictated Date/Time: 08/19/2017 9:56 AM
[2017-08-19] MEDS: NICOTINE 21 MG/24 HR TDSY TD SCH (11:13)
--- NOTE | 2017-08-19 11:13 | Progress Note ---
Progress Note Date of Service Aug 19, 2017. Progress Note ID Consult Dictated #[id number] A/P: 1. Strep Sepsis, likely related to biliary sepsis 2. Fever - resolved -Can continue with amp at this time, while npo, when patient eating would suggest changing to po augmentin 875mg po bid x 14 days -Suggest repeat blood cultures -HIDA negative -Thank you
--- NOTE | 2017-08-19 11:21 | Progress Note ---
Subjective Date of Service: Aug 19, 2017. Subjective Pt evaluation today including: conversation w/ patient Pt states he has not had abd pain since having the stent placed. Ate yesterday and no issues. Has been NPO this AM for testing. Pt denies fever, SOB, chest pain, abd pain, n/v/c/d, LE pain or swelling. Pt is frustrated with length of stay in the hospital and wants to go home if possible. Problem List Medical Problems: (1) Abdominal lymphadenopathy Status: Acute (2) Epigastric abdominal pain Status: Acute (3) Pancreatitis Status: Acute (4) Retroperitoneal fluid collection Status: Acute Review of Systems All Other Systems: Reviewed and Negative Objective Vital Signs Date Time Temp Pulse Resp B/P (MAP) Pulse Ox O2 Delivery O2 Flow Rate FiO2 08/19/17 07:19 37.0 52 16 158/83 (108) 95 Room Air 08/19/17 00:10 Room Air 08/18/17 22:45 37.3 58 18 144/84 (104) 93 Room Air 08/18/17 15:20 Room Air 08/18/17 14:52 36.9 58 18 146/75 (98) 94 Room Air Physical Exam General Appearance: WD/WN, no apparent distress Eyes: normal inspection, EOMI Respiratory/Chest: normal breath sounds, no respiratory distress Cardiovascular: regular rate, rhythm, no edema Abdomen: non tender, soft, + distended Extremities: non-tender, no pedal edema Neurologic/Psychiatric: alert, oriented x 3 Skin: normal color, warm/dry Laboratory Results Last 24 Hours Test 08/19/17 05:34 Sodium Level 140 mmol/L Potassium Level 3.6 mmol/L Chloride Level 106 mmol/L Carbon Dioxide Level 26 mmol/L Anion Gap 8.0 mmol/L Blood Urea Nitrogen 12 mg/dl Creatinine 0.89 mg/dl Est Creatinine Clear Calc Drug Dose 95.0 ml/min Estimated GFR () 104.0 Estimated GFR (Non- 89.7 BUN/Creatinine Ratio 12.9 Random Glucose 134 mg/dl Calcium Level 8.6 mg/dl Total Bilirubin 1.3 mg/dl Aspartate Amino Transf (AST/SGOT) 98 U/L Alanine Aminotransferase (ALT/SGPT) 267 U/L Alkaline Phosphatase 324 U/L Total Protein 6.3 gm/dl Albumin 2.5 gm/dl Globulin 3.8 gm/dl Albumin/Globulin Ratio 0.7 Assessment and Plan 67 M with cholecystitis/cholangitis and acute pancreatitis, history of alcohol abuse cholangitis-abx started, taken promptly for ERCP, marked and continual improvement with sweep stent of CBD and sphincterotomy HIDA neg -possible EUS to better define pathology/anatomy/adenopathy - cholangitis improved w biliary drainage Awaiting further GI input gram positive bacteremia,strep felt secondary to cholangitis source vancomycin added forGI coverage and bacteremia, sensi rec ampicillin sensitivity, d/c vanco and start ampicillin on 08/19 ID c/s pending HTN: continues to be controlled on Norvasc 10 mg daily and Valsartan 160 mg daily H/O ETOH Use: Abstinence since initial pancreatitis on previous admission - continue Thiamine 100 mg daily and Folic Acid 1 mg daily No Signs/symptoms of withdrawal Tobacco Use: Continue nicotine patch DVT Prophylaxis: Heparin 5000 units SC BID
--- NOTE | 2017-08-19 13:24 | INFECT. DISEASE CONSULTATION ---
DATE OF CONSULTATION: 08/19/2017 REQUESTING PHYSICIAN: Jorge Pastrana DO HISTORY OF PRESENT ILLNESS: This is a 67-year-old gentleman who was recently admitted to the hospital for pancreatitis, which was felt to be related to alcohol use. He was discharged in stable condition, but was readmitted with abdominal pain on the . At that time, he was found to have a peak elevation of his lipase at 2061. His LFTs were also elevated. His AST was as high as 550 and his ALT was as high as 474. They have improved to 98 and 267 today. He has been recently afebrile; however, on the , he did have a T-max of 39.2 and on the , a T-max of 38. He has been afebrile since then. He is on vancomycin. His last white blood cell count was on the and this was normal at 6.0. He currently is afebrile. He did have a CAT scan as part of his initial workup in the ER, which did show resolving pancreatitis, but a distended gallbladder. He did have an MRCP, which showed dilated ducts and underwent an ERCP on the with stent placement. Overall, he is feeling significantly better; however, he did have blood cultures obtained on the , which are growing strep salivarius. He is tolerating his antibiotics well. No repeat blood cultures have been obtained. He did also undergo a HIDA scan earlier this morning, which did not show any evidence for obstruction or acute cholecystitis. On my examination today, he states overall he is feeling significantly better. He states he is eating well, although he was n.p.o. this morning for his HIDA scan. He denies any nausea, vomiting, diarrhea or abdominal pain. He is tolerating antibiotics well. He denies any fevers or chills. REVIEW OF SYSTEMS: His remaining review of systems is reviewed and negative. PAST MEDICAL HISTORY: Significant for hypertension, GERD, prostate cancer, and alcohol abuse. FAMILY HISTORY: Noncontributory. SOCIAL HISTORY: Significant for a history of tobacco use. He recently has stopped using alcohol. He is and lives with his family. ALLERGIES: He has no known drug allergies. MEDICATIONS: Include IV ampicillin, Advil, Demerol, Norvasc, Ecotrin, folic acid, vitamin B1, vitamin D, Protonix, nicotine patch, subQ heparin, Ativan, Maalox, milk of magnesia, MiraLax and Zofran. PHYSICAL EXAMINATION: VITAL SIGNS: He is afebrile, pulse 52, respiratory rate 16, blood pressure 158/83 and oxygen saturation is 95% on room air. GENERAL: He is awake, alert and oriented x3. He is in no acute distress. HEENT: Mucous membranes are moist. Extraocular muscles are intact. HEART: Regular. LUNGS: Clear. ABDOMEN: Soft, nontender, and nondistended. There is no edema. SKIN: Without rash. LABORATORY STUDIES: Reveal white blood cell count to be 6.0 on the . Most recent chemistry panel from this morning reveals a sodium of 140, potassium 3.6, chloride 106, bicarbonate 26, BUN 12, and creatinine 0.8. AST is 98 and ALT is 267. Most recent lipase is from the and is normal at 391. UA was negative in the ER. Blood cultures again are growing 2 species of Strep salivarius both of which are sensitive to ampicillin. HIDA scan is as above. Imaging is as above. ASSESSMENT AND PLAN: Strep septicemia, likely secondary to gallbladder pancreatitis. He can be continued on IV ampicillin while n.p.o. On discharge, I would recommend transitioning him to Augmentin at a dose of 875 mg twice daily with food for a duration of 14 days. Thank you for this consultation.
[2017-08-19] MEDS: AMPICILLIN IV 2,000 MG in SODIUM CHLOR 0.9% AD-VAN 100ML 100 ML IV SCH ×3 (13:34→23:08)
[2017-08-19] MEDS ORDERED: SUCCINYLCHOLINE CHLORIDE 20 MG/ML 10 ML VIAL IV ONE (14:18)
[2017-08-19] MEDS ORDERED: PROPOFOL IV EMULSION 10 MG/ML 20 ML VIAL IV ONE (14:18)
[2017-08-19] MEDS ORDERED: FENTANYL CITRATE INJ 50 MCG/1 ML 2 ML VIAL ONE ×2 (14:18→17:09)
[2017-08-19] MEDS ORDERED: ONDANSETRON INJ 2 MG/ML 2 ML VIAL ONE (14:18)
[2017-08-19] MEDS ORDERED: LIDOCAINE HCL 2% 2 ML VIAL (20MG/ML) ONE (14:18)
[2017-08-19] MEDS ORDERED: LARYING-O-JET KIT (LTA) ONE ×2 (14:18)
[2017-08-19] MEDS ORDERED: MIDAZOLAM HCL 1 MG/ML 2ML VIAL ONE (14:19)
--- NOTE | 2017-08-19 15:39 | History & Physical Bridge Note ---
H&P Re-Evaluation Bridge Note: I have examined the patient, reviewed the History & Physical and in the interval since the performance of the History & Physical I have noted the following changes of clinical significance: AAOx3 Nls1s2 Lungs CTA Abd soft NT/ND + BS -CCE No changes noted consent obtained-risks benefits and alternatives d/w pt
[2017-08-19] MEDS ORDERED: EpHEDrine SULFATE 50MG/5ML SYR ONE (16:09)
[2017-08-19] MEDS ORDERED: ONDANSETRON INJ 2 MG/ML 2 ML VIAL IV PRN (16:15)
[2017-08-19] MEDS ORDERED: HYDROmorphone INJ 2 MG/ML SYR/VIAL IV PRN (16:15)
[2017-08-19] MEDS ORDERED: FENTANYL CITRATE INJ 50 MCG/1 ML 2 ML VIAL IV PRN (16:15)
[2017-08-19] MEDS ORDERED: ATROPINE SULFATE 0.1 MG/ML 5ML SYR IV PRN (16:15)
[2017-08-19] MEDS ORDERED: EpHEDrine SULFATE INJ 50 MG/ML AMP IV PRN (16:15)
[2017-08-19] MEDS ORDERED: LABETALOL HCL IV 5 MG/ML 20ML IV PRN (16:15)
[2017-08-19] MEDS ORDERED: NALOXONE HCL 0.4 MG/1 ML VIAL/CARP IV PRN (16:15)
[2017-08-19] MEDS ORDERED: MEPERIDINE HCL 25 MG/ML CARP IV PRN (16:15)
[2017-08-19] MEDS ORDERED: FLUMAZENIL 0.1 MG/1 ML 10 ML VIAL IV PRN (16:15)
[2017-08-19] MEDS ORDERED: PHENYLEPHRINE 100MCG/ML 5ML SYR IV PRN (16:15)
--- NOTE | 2017-08-19 17:36 | GI REPORT ---
Procedure Date: 08/19/2017 3:51 PM Procedure: Upper EUS Indications: Abnormal abdominal/pelvic CT scan, Abnormal MRCP, Abnormal liver function test, Acute recurrent pancreatitis Medicines: General Anesthesia Complications: No immediate complications. Estimated blood loss: Minimal. Estimated Blood Loss: Estimated blood loss was minimal. Procedure: Pre-Anesthesia Assessment: - Prior to the procedure, a History and Physical was performed, and patient medications and allergies were reviewed. The patient's tolerance of previous anesthesia was also reviewed. The risks and benefits of the procedure and the sedation options and risks were discussed with the patient. All questions were answered, and informed consent was obtained. Prior Anticoagulants: The patient has taken no previous anticoagulant or antiplatelet agents. ASA Grade Assessment: II - A patient with mild systemic disease. After reviewing the risks and benefits, the patient was deemed in satisfactory condition to undergo the procedure. After obtaining informed consent, the endoscope was passed under direct vision. Throughout the procedure, the patient's blood pressure, pulse, and oxygen saturations were monitored continuously. The Endosonoscope was introduced through the mouth, and advanced to the duodenum for ultrasound examination from the esophagus, stomach and duodenum. The scope was introduced through the mouth, and advanced to the second part of duodenum. The upper EUS was accomplished without difficulty. The patient tolerated the procedure well. Findings: Endoscopic Finding : The examined esophagus was normal. The entire examined stomach was normal. The examined duodenum was normal. Endosonographic Finding : The esophagus, stomach and duodenum and adjacent structures were visualized endosonographically. There was no sign of significant endosonographic abnormality in the esophagus. No pathologic lymphadenopathy and no masses were identified. Endosonographic images of the stomach were unremarkable. No pathologic lymphadenopathy was identified. There was no sign of significant endosonographic abnormality in the examined duodenum. There was no sign of significant endosonographic abnormality in the ampulla. Biliary stent in place were identified. Hyperechoic material suggestive of air was visualized in the common bile duct and where the hepatic duct bifurcates into the right and left hepatic ducts. A few possible stones vs air shadowing stones were visualized endosonographically in the gallbladder. They were characterized by shadowing. There was no sign of significant endosonographic abnormality in the visualized portion of the liver. No focal pathology and no masses were identified. Pancreatic parenchymal abnormalities were noted in the entire pancreas. These consisted of hyperechoic strands. There was no sign of significant endosonographic abnormality in the main pancreatic duct. No masses, no cysts, the pancreatic duct was regular in contour. A few enlarged lymph nodes were visualized in the upper-abdominal periaortic region. The nodes were irregular, heterogenous and had poorly defined margins. Fine needle aspiration for cytology was performed. Color Doppler imaging was utilized prior to needle puncture to confirm a lack of significant vascular structures within the needle path. Five passes were made with the 22 gauge needle using a transduodenal approach. A stylet was used. A digital strategy specialist was present to evaluate the adequacy of the specimen. The cellularity of the specimen was adequate. Final cytology results are pending. Impression: - Normal esophagus. - Normal stomach. - Normal examined duodenum. - There was no sign of significant pathology in the esophagus. - Endosonographic images of the stomach were unremarkable. - There was no sign of significant pathology in the examined duodenum. - There was no sign of significant pathology in the ampulla. - Hyperechoic material suggestive of air was visualized in the common bile duct and in the bifurcation of the common hepatic duct. - A few possible stones vs air shadowing stones were visualized endosonographically in the gallbladder. - There was no evidence of significant pathology in the visualized portion of the liver. - Pancreatic parenchymal abnormalities consisting of hyperechoic strands were noted in the entire pancreas. - There was no sign of significant pathology in the main pancreatic duct. - A few enlarged lymph nodes were visualized in the upper-abdominal periaortic region. Fine needle aspiration performed. Recommendation: - [facility]. - Resume previous diet. - Await cytology results. - The GB wall is thickened ( 4 mm) along with shadowing that may represent layering small stones vs air from recent ERCP. Air and stent in CBD. Would consider evaluation for cholecystectomy given GB appearance by EUS. Also consider exploratory laparoscopy to assess for lymph nodes if today's sampling is non diagnostic.. MD Vadim Sanz MD 08/19/2017 5:36:14 PM This report has been signed electronically. Note Initiated On: 08/19/2017 3:51 PM I attest to the content of the Intraoperative Record and orders documented therein, exceptions below
--- NOTE | 2017-08-19 17:55 | Anesthesiology Progress Note ---
Anesthesia Post Op Note Date & Time Aug 19, 2017 at 17:55 Vital Signs Pain Intensity: 0 Vital Signs Past 12 Hours Date Time Temp Pulse Resp B/P (MAP) Pulse Ox O2 Delivery O2 Flow Rate FiO2 08/19/17 17:50 36.5 74 12 166/92 95 Nasal Cannula 4 08/19/17 17:40 82 18 159/92 92 Oxymask 4 08/19/17 17:30 77 20 146/85 94 Oxymask 10 08/19/17 17:23 36.1 87 16 165/80 94 Oxymask 10 08/19/17 15:12 36.3 54 16 150/87 (108) 95 Room Air 08/19/17 10:30 Room Air 08/19/17 07:19 37.0 52 16 158/83 (108) 95 Room Air Notes Mental Status: alert / awake / arousable, participated in evaluation Pt Amnestic to Procedure: Yes Nausea / Vomiting: adequately controlled Pain: adequately controlled Airway Patency, RR, SpO2: stable & adequate BP & HR: stable & adequate Hydration State: stable & adequate Anesthetic Complications: no major complications apparent
[2017-08-19] MEDS: ASPIRIN 81 MG ECTAB PO SCH (18:32)
[2017-08-19] MEDS: VALSARTAN 80 MG TAB PO SCH (18:32)
[2017-08-19] MEDS: THIAMINE HCL 100 MG TAB PO SCH (18:33)
[2017-08-19] MEDS: AMLODIPINE BESYLATE 5 MG TAB PO SCH (18:33)
[2017-08-19] MEDS: PANTOprazole SOD 40 MG TAB PO SCH (18:33)
[2017-08-19] MEDS: CHOLECALCIFEROL 1000 INTER.UNIT TAB PO SCH (18:34)
[2017-08-19] MEDS ORDERED: NURSING VERBAL MED ORDER ONE (18:45)
--- NOTE | 2017-08-19 20:33 | SURGICAL CONSULTATION ---
DATE OF ADMISSION: 08/14/[address] Giron for dilated gallbladder with thickening. HISTORY OF PRESENT ILLNESS: The patient has been admitted to the hospital twice with abdominal pain, initially on 08/08/2017 with pancreatitis and also elevated total bilirubin with evidence of a dilated common bile duct, dilated gallbladder with thickening of the gallbladder to 4 mm and pancreatitis. He did improve and was discharged home for approximately 2-3 days and then readmitted on 08/14/2017 with acute abdominal pain and elevated liver function studies with total bilirubin as well as mildly elevated lipase. He did not appear to have any significant sludge or stones in the gallbladder from the imaging performed at that time. He did have blood cultures which were multiple and positive for Streptococcus salivarius . He subsequently underwent ERCP by Dr. Jefferson who did not find significant stones or sludge in the common bile duct, but did find mucus and some stenosis of the duct. He performed a sphincterotomy and stent placement and subsequent to that, the patient's pain has completely resolved. He did undergo a HIDA scan today which showed filling of the gallbladder, but somewhat delayed, consistent with chronic dysfunction and a dilated common bile duct. He also underwent an endoscopic ultrasound today showing some air shadowing versus small stones or sludge in the gallbladder with the gallbladder wall of 4 mm and distended which is consistent with what it was back on 08/08/2017. His common bile duct has been consistently dilated over 1 cm. His total bilirubin has significantly improved from 6.1 as high to 1.3. Transaminases are slowly coming down as well as his alkaline phosphatase. PAST MEDICAL HISTORY: The patient has a history of hypertension. FAMILY AND SOCIAL HISTORY: Noncontributory. ALLERGIES: He has no known drug allergies. MEDICATIONS: He takes multiple medications including; Norvasc, aspirin, Nicoderm, Prilosec and Diovan. REVIEW OF SYSTEMS: He has had no fever, chills, shortness of breath, chest pain or palpitations. He has had abdominal pain but no nausea, vomiting, diarrhea, constipation or GI bleeding. He has had no dysuria, no fatigue and no significant rash. PHYSICAL EXAMINATION: GENERAL: He is in his bed. He is wide awake. He is eating what appears to be some type of ice cream or frozen ice. He is alert and oriented. His is at the bedside. He is in no distress. He is breathing comfortably. ABDOMEN: Distended, but nontender. He does have bowel sounds. EXTREMITIES: Without edema. ASSESSMENT AND PLAN: A 67-year-old male, with somewhat of a complex history which is not clearly significant for cholecystitis. He likely does have some element of cholecystitis or dysfunction and also probable edema from prior pancreatitis and what appears to be common bile duct obstruction. I do not think the patient has necrotizing cholecystitis. Dr Pardo feels cultures could be from gallstone pancreatitis. Gallbladder may be more diffusely thickened on EUS. I do feel at some point he should have a cholecystectomy; I will discuss the situation with the other doctors . Trying to biopsy a lymph nodes may be difficult and I may not be able to perform with laparoscope. PRASHANT
[2017-08-20] VITALS (7 sets, daily range): BP systolic 142–169; BP diastolic 72–82; PULSE 51–62; TEMP 36.6–37.1; O2SAT 92–94
[2017-08-20] MEDS ORDERED: VANCOMYCIN TROUGH ONE (01:30)
[2017-08-20] MEDS: AMPICILLIN IV 2,000 MG in SODIUM CHLOR 0.9% AD-VAN 100ML 100 ML IV SCH ×6 (03:06→22:15)
[2017-08-20] MEDS: LACTATED RINGER'S 1000ML 1,000 ML IV SCH ×4 (03:08→19:03)
--- NOTE | 2017-08-20 06:40 | Surgery Progress Note ---
Surgery Progress Note Date of Service Aug 20, 2017. Subjective awake, alert , no pain- taking no pain med tolerating low fat diet Objective Vital Signs: Date Time Temp Pulse Resp B/P (MAP) Pulse Ox O2 Delivery O2 Flow Rate FiO2 08/20/17 04:05 36.6 57 16 142/82 (102) 93 Room Air 08/19/17 23:35 Room Air 08/19/17 22:57 36.8 60 16 137/73 (94) 93 Room Air 08/19/17 21:15 36.7 57 16 148/74 (98) 95 Room Air 08/19/17 20:19 37.0 63 16 127/63 (84) 93 Room Air 08/19/17 19:25 36.4 73 16 136/67 (90) 94 Room Air 08/19/17 19:12 36.2 64 16 136/75 (95) 97 Room Air 2.0 08/19/17 18:15 94 Room Air 08/19/17 18:15 Nasal Cannula 4.0 08/19/17 18:00 66 14 171/86 94 Nasal Cannula 4 08/19/17 17:50 36.5 74 12 166/92 95 Nasal Cannula 4 08/19/17 17:40 82 18 159/92 92 Oxymask 4 08/19/17 17:30 77 20 146/85 94 Oxymask 10 08/19/17 17:23 36.1 87 16 165/80 94 Oxymask 10 08/19/17 15:12 36.3 54 16 150/87 (108) 95 Room Air 08/19/17 10:30 Room Air 08/19/17 07:19 37.0 52 16 158/83 (108) 95 Room Air General Appearance: no apparent distress Respiratory/Chest: no respiratory distress Abdomen: non tender, soft Assessment & Plan 08/20/17- pt is doing well s/p ERCP and MRCP- will discuss with GI team- consider lap gita tomorrow if all agree- if passing sludge at risk of occluding stent. Cystic duct is patent per Hida. Does not appear to have necrotizing cholecystitis
--- NOTE | 2017-08-20 07:44 | Anesthesiology Progress Note ---
Anesthesia Post Op Note Date & Time Aug 20, 2017 at 07:44 Vital Signs Pain Intensity: 0.0 Vital Signs Past 12 Hours Date Time Temp Pulse Resp B/P (MAP) Pulse Ox O2 Delivery O2 Flow Rate FiO2 08/20/17 06:44 36.8 52 18 149/77 (101) 92 Room Air 08/20/17 04:05 36.6 57 16 142/82 (102) 93 Room Air 08/19/17 23:35 Room Air 08/19/17 22:57 36.8 60 16 137/73 (94) 93 Room Air 08/19/17 21:15 36.7 57 16 148/74 (98) 95 Room Air 08/19/17 20:19 37.0 63 16 127/63 (84) 93 Room Air Notes Mental Status: alert / awake / arousable, participated in evaluation Pt Amnestic to Procedure: Yes Nausea / Vomiting: adequately controlled Pain: adequately controlled Airway Patency, RR, SpO2: stable & adequate BP & HR: stable & adequate Hydration State: stable & adequate Anesthetic Complications: no major complications apparent
[2017-08-20] MEDS: PANTOprazole SOD 40 MG TAB PO SCH (08:39)
[2017-08-20] MEDS: THIAMINE HCL 100 MG TAB PO SCH (08:39)
[2017-08-20] MEDS: VALSARTAN 80 MG TAB PO SCH (08:39)
[2017-08-20] MEDS: ASPIRIN 81 MG ECTAB PO SCH (08:40)
[2017-08-20] MEDS: AMLODIPINE BESYLATE 5 MG TAB PO SCH (08:40)
[2017-08-20] MEDS: CHOLECALCIFEROL 1000 INTER.UNIT TAB PO SCH (08:40)
[2017-08-20] MEDS: NICOTINE 21 MG/24 HR TDSY TD SCH (08:41)
[2017-08-20] MEDS: HEPARIN SOD 5000 UNIT/0.5 ML CARP SQ SCH ×2 (08:55→21:11)
--- NOTE | 2017-08-20 11:29 | Progress Note ---
Progress Note Date of Service Aug 20, 2017. Progress Note Patient is scheduled for laparoscopic cholecystectomy with Dr Montgomery on 08/21. He recently underwent ERCP on 08/18 and then EUS on 08/19 without incident and has been medically improving since that time. Medical history is unchanged and includes tobacco and alcohol abuse and HTN. His acute pancreatitis appears to be resolving and he is on appropriate antibiotics for his sepsis. Current labs and studies were reviewed and there does not appear to be any contraindication to proceeding with his cholecystectomy from an anesthetic standpoint on the .
--- NOTE | 2017-08-20 15:17 | Progress Note ---
Subjective Date of Service: Aug 20, 2017. Subjective Pt evaluation today including: conversation w/ patient, conversation w/ family , physical exam, chart review, lab review pt seen in followup, continue on IV abx, for lapchole in am. no pain, eating, no n/v/d. denies f/c. tolerating abx. wbc nml. all remaining ros reviewed and are negative. Problem List Medical Problems: (1) Abdominal lymphadenopathy Status: Acute (2) Epigastric abdominal pain Status: Acute (3) Pancreatitis Status: Acute (4) Retroperitoneal fluid collection Status: Acute Objective Vital Signs Date Time Temp Pulse Resp B/P (MAP) Pulse Ox O2 Delivery O2 Flow Rate FiO2 08/20/17 14:54 37.1 57 16 143/77 (99) 93 Room Air 08/20/17 13:05 153/78 (103) 08/20/17 12:22 37.0 51 16 169/72 (104) 92 Room Air 08/20/17 08:40 62 142/78 (99) 08/20/17 07:20 Room Air 08/20/17 06:44 36.8 52 18 149/77 (101) 92 Room Air 08/20/17 04:05 36.6 57 16 142/82 (102) 93 Room Air 08/19/17 23:35 Room Air 08/19/17 22:57 36.8 60 16 137/73 (94) 93 Room Air 08/19/17 21:15 36.7 57 16 148/74 (98) 95 Room Air 08/19/17 20:19 37.0 63 16 127/63 (84) 93 Room Air 08/19/17 19:25 36.4 73 16 136/67 (90) 94 Room Air 08/19/17 19:12 36.2 64 16 136/75 (95) 97 Room Air 2.0 08/19/17 18:15 94 Room Air 08/19/17 18:15 Nasal Cannula 4.0 08/19/17 18:00 66 14 171/86 94 Nasal Cannula 4 08/19/17 17:50 36.5 74 12 166/92 95 Nasal Cannula 4 08/19/17 17:40 82 18 159/92 92 Oxymask 4 08/19/17 17:30 77 20 146/85 94 Oxymask 10 11/27/17 17:23 36.1 87 16 165/80 94 Oxymask 10 Physical Exam General Appearance: WD/WN, no apparent distress Eyes: normal inspection, EOMI ENT: pharynx normal Neck: supple Respiratory/Chest: chest non-tender, lungs clear, normal breath sounds, no respiratory distress Cardiovascular: regular rate, rhythm, no edema Abdomen: non tender, soft Extremities: non-tender, no pedal edema Neurologic/Psychiatric: alert, oriented x 3 Skin: normal color, no rash Laboratory Results Item Value Date Time Blood Culture - Final Complete 08/15/17 1901 Blood Streptococcus Salivarius Blood Culture - Preliminary Resulted 08/15/17 1857 Blood Streptococcus Salivarius Assessment and Plan (1) Streptococcal sepsis Assessment & Plan: continue abx IV for now as he is to have surgery tomorrow. will repeat blood cultures. will need 2 weeks abx, would transition to po augmentin x 14 days at d/c. (2) Biliary sepsis
--- NOTE | 2017-08-20 16:46 | Progress Note ---
Subjective Date of Service: Aug 20, 2017. Subjective pt feels better for upcoming cholecystectomy this week, answered as many questions as possible at bedside for patient and Problem List Medical Problems: (1) Abdominal lymphadenopathy Status: Acute (2) Epigastric abdominal pain Status: Acute (3) Pancreatitis Status: Acute (4) Retroperitoneal fluid collection Status: Acute Review of Systems Constitutional: No fever, No chills Respiratory: No cough, No sputum Cardiac: No chest pain, No orthopnea Abdomen: No pain, No nausea Musculoskeletal: No joint pain, No muscle pain Male : No dysuria, No urinary frequency Objective Vital Signs Date Time Temp Pulse Resp B/P (MAP) Pulse Ox O2 Delivery O2 Flow Rate FiO2 08/20/17 15:05 Room Air 08/20/17 14:54 37.1 57 16 143/77 (99) 93 Room Air 08/20/17 13:05 153/78 (103) 08/20/17 12:22 37.0 51 16 169/72 (104) 92 Room Air 08/20/17 08:40 62 142/78 (99) 08/20/17 07:20 Room Air 08/20/17 06:44 36.8 52 18 149/77 (101) 92 Room Air 08/20/17 04:05 36.6 57 16 142/82 (102) 93 Room Air 08/19/17 23:35 Room Air 08/19/17 22:57 36.8 60 16 137/73 (94) 93 Room Air 08/19/17 21:15 36.7 57 16 148/74 (98) 95 Room Air 08/19/17 20:19 37.0 63 16 127/63 (84) 93 Room Air 08/19/17 19:25 36.4 73 16 136/67 (90) 94 Room Air 08/19/17 19:12 36.2 64 16 136/75 (95) 97 Room Air 2.0 08/19/17 18:15 94 Room Air 08/19/17 18:15 Nasal Cannula 4.0 08/19/17 18:00 66 14 171/86 94 Nasal Cannula 4 08/19/17 17:50 36.5 74 12 166/92 95 Nasal Cannula 4 08/19/17 17:40 82 18 159/92 92 Oxymask 4 08/19/17 17:30 77 20 146/85 94 Oxymask 10 08/19/17 17:23 36.1 87 16 165/80 94 Oxymask 10 Physical Exam General Appearance: WD/WN, no apparent distress Eyes: normal inspection, PERRL, EOMI Respiratory/Chest: chest non-tender, lungs clear, normal breath sounds Cardiovascular: regular rate, rhythm, no murmur Abdomen: normal bowel sounds, soft, + tenderness (mild ruq) Extremities: no pedal edema, no calf tenderness Neurologic/Psychiatric: alert, oriented x 3 Assessment and Plan 67 M with cholecystitis/cholangitis and acute pancreatitis, history of alcohol abuse cholangitis-abx started, taken promptly for ERCP, marked and continueal improvement with sweep stent of CBD and sphincterotomy - cholangitis improved w biliary drainage gram positive bacteremia,strep felt secondary to cholangitis source, vancomycin added to typical GI coverage, given bacteremia, Gen surgery consult to consider cholecystectomy 08/21 HTN: continue Norvasc 10 mg daily and Valsartan 160 mg daily H/O ETOH Use: Abstinence since initial pancreatitis on previous admission - transition to mvi post procedure Tobacco Use: Continue nicotine patch, cessation counselling DVT Prophylaxis: Heparin 5000 units SC BID
--- NOTE | 2017-08-20 17:55 | PROGRESS NOTE ---
DATE: 08/20/2017 HISTORY OF PRESENT ILLNESS: The patient reports no abdominal pain. His vital signs remain within normal limits. He is afebrile. His white count is 6.05 on antibiotics. Chemistries show lipase has returned to normal. CEA is 0.5. CA 27-29 is 33, normal. CA 19-9 is slightly elevated at 106 with upper limit of normal being 34. He did have cytology from his biliary brushings from the show reactive change but no malignancy. His endoscopic ultrasound yesterday demonstrated some adenopathy that was accessed and those results are pending at this time. He is scheduled for cholecystectomy tomorrow. IMPRESSION: The patient's pancreatitis is improving. Biliary stents in place and his liver tests are improving as well. Biopsy of his lymph node from endoscopic ultrasound is pending. The patient will have his gallbladder removed tomorrow and if it is easily accessible Dr. Montgomery intends to biopsy lymph node if possible. His bacteremia continues to be treated with antibiotics. We will continue to follow the patient.
[2017-08-21] VITALS (9 sets, daily range): BP systolic 138–168; BP diastolic 75–96; PULSE 51–68; TEMP 36.5–37.1; O2SAT 91–96
[2017-08-21] MEDS: LACTATED RINGER'S 1000ML 1,000 ML IV SCH ×4 (00:50→23:08)
[2017-08-21] MEDS: AMPICILLIN IV 2,000 MG in SODIUM CHLOR 0.9% AD-VAN 100ML 100 ML IV SCH ×6 (02:58→22:43)
--- NOTE | 2017-08-21 06:19 | Surgery Progress Note ---
Surgery Progress Note Date of Service Aug 21, 2017. Subjective vital signs stable no acute changes Objective Vital Signs: Date Time Temp Pulse Resp B/P (MAP) Pulse Ox O2 Delivery O2 Flow Rate FiO2 08/21/17 05:38 36.8 51 20 168/83 (111) 95 Room Air 08/20/17 23:20 Room Air 08/20/17 23:20 37.1 56 16 157/80 (105) 94 Room Air 08/20/17 15:05 Room Air 08/20/17 14:54 37.1 57 16 143/77 (99) 93 Room Air 08/20/17 13:05 153/78 (103) 08/20/17 12:22 37.0 51 16 169/72 (104) 92 Room Air 08/20/17 08:40 62 142/78 (99) 08/20/17 07:20 Room Air 08/20/17 06:44 36.8 52 18 149/77 (101) 92 Room Air Laboratory Results: Results Past 24 Hours Test 08/21/17 04:44 Range/Units Microbiology Results 08/20/17 Blood Culture, Received Pending 08/20/17 Blood Culture, Received Pending Assessment & Plan 08/21/17- plan for lap gita today- keep at least overnight no acute changes 08/20/17- pt is doing well s/p ERCP and MRCP- will discuss with GI team- consider lap gita tomorrow if all agree- if passing sludge at risk of occluding stent. Cystic duct is patent per Hida. Does not appear to have necrotizing cholecystitis 08/20/17- pt is doing well s/p ERCP and MRCP- will discuss with GI team- consider lap gita tomorrow if all agree- if passing sludge at risk of occluding stent. Cystic duct is patent per Hida. Does not appear to have necrotizing cholecystitis
[2017-08-21] MEDS ORDERED: CONRAY 60% 50 ML VIAL ONE (06:33)
[2017-08-21] MEDS ORDERED: BUPIVACAINE 0.5 % 5 MG/1 ML MPF 30ML VIAL ONE (06:34)
[2017-08-21] MEDS ORDERED: MIDAZOLAM HCL 1 MG/ML 2ML VIAL ONE (06:38)
[2017-08-21] MEDS ORDERED: FENTANYL CITRATE INJ 50 MCG/1 ML 2 ML VIAL ONE ×2 (06:39→07:37)
[2017-08-21] MEDS ORDERED: LIDOCAINE HCL 2% 2 ML VIAL (20MG/ML) ONE (06:42)
[2017-08-21] MEDS ORDERED: ROCURONIUM BROMIDE 10 MG/ML 5 ML VIAL IV ONE (06:42)
[2017-08-21] MEDS ORDERED: PROPOFOL IV EMULSION 10 MG/ML 20 ML VIAL IV ONE ×2 (06:42→07:32)
[2017-08-21] MEDS ORDERED: NEOSTIGMINE METHYLSULFATE 5 MG/5 ML SYR ONE (07:33)
[2017-08-21] MEDS ORDERED: ONDANSETRON INJ 2 MG/ML 2 ML VIAL ONE (07:33)
[2017-08-21] MEDS ORDERED: GLYCOPYRROLATE INJ 0.2 MG/ML VIAL ONE (07:33)
[2017-08-21] MEDS ORDERED: EpHEDrine SULFATE 50MG/5ML SYR ONE (08:08)
[2017-08-21] MEDS ORDERED: ATROPINE SULFATE 0.1 MG/ML 5ML SYR IV PRN (08:15)
[2017-08-21] MEDS ORDERED: FLUMAZENIL 0.1 MG/1 ML 10 ML VIAL IV PRN (08:15)
[2017-08-21] MEDS ORDERED: LABETALOL HCL IV 5 MG/ML 20ML IV PRN (08:15)
[2017-08-21] MEDS ORDERED: HYDROmorphone INJ 1 MG/ML SYR IV PRN ×2 (08:15→08:45)
[2017-08-21] MEDS ORDERED: NALOXONE HCL 0.4 MG/1 ML VIAL/CARP IV PRN (08:15)
[2017-08-21] MEDS ORDERED: ONDANSETRON INJ 2 MG/ML 2 ML VIAL IV PRN ×2 (08:15→08:45)
[2017-08-21] MEDS ORDERED: EpHEDrine SULFATE INJ 50 MG/ML AMP IV PRN (08:15)
[2017-08-21] MEDS ORDERED: PROMETHAZINE HCL INJ 12.5 MG in SODIUM CHLORIDE 0.9% 50ML 50 ML IV PRN (08:15)
[2017-08-21] MEDS ORDERED: LABETALOL HCL IV 5 MG/ML 20ML IV ONE (08:34)
--- NOTE | 2017-08-21 08:35 | [facility] Operative Report ---
Operative Report Operative Date Aug 21, 2017. Pre-Operative Diagnosis Cholecystitis Post-Operative Diagnosis Cholecystitis- acute/chronic, adhesions, umbilical hernia Procedure(s) Performed Laparoscopic Cholecystectomy, Repair of Umbilical Hernia, lymphnode bx Surgeon Dr. Montgomery Analytics Leader Surgeon(s) SHALA Martins/ SHALA Thorne Estimated Blood Loss 100 ml Findings umbilical hernia, chronic adhesions, acute edema Specimens A. Umbilical Hernia Sac and Contents B. Gallbladder C. Perihepatic Lymph node (*Fresh)--[place] [address] [place] Anesthesia gen Complication(s) None Disposition Recovery Room / PACU I attest to the content of the Intraoperative Record and any orders documented therein. Any exceptions are noted below.
[2017-08-21] MEDS ORDERED: HYDROCODONE/ACETAMOPHEN 5/325MG TAB PO PRN ×2 (08:45)
[2017-08-21] MEDS ORDERED: HYDROmorphone INJ 0.5 MG/0.5 ML SYR IV PRN (08:45)
[2017-08-21] MEDS ORDERED: PROMETHAZINE HCL INJ 25 MG in SODIUM CHLORIDE 0.9% 50ML 50 ML IV PRN (08:45)
--- NOTE | 2017-08-21 08:54 | OPERATIVE REPORT ---
DATE OF OPERATION: 08/21/2017 NAME OF OPERATION: Laparoscopic cholecystectomy, umbilical hernia repair, and lymph node biopsy. PREOPERATIVE DIAGNOSIS: Acute cholecystitis. POSTOPERATIVE DIAGNOSIS: Same. STAFF SURGEON: Dr. Montgomery. ASSISTANTS: Angel Luis Mondragon PA-C and Cheko De La Rosa PA-C. Angel Luis was the main offset press assistant. ANESTHESIA: General. PROCEDURE: The patient was brought in the operating room and placed on the operating table in supine position. His abdomen was prepped and draped in usual fashion. Pneumatic stockings and orogastric tube were placed. The patient did have a small umbilical hernia. Incisions were all anesthetized using 0.5% plain Marcaine. Incision was made above the umbilicus, carrying dissection down opening the hernia, dissecting the hernia contents and sac away from the tissue and sent for routine pathology. At this point a Veress needle was placed and pneumoperitoneum produced. An 11 mm port was placed at this level and then under visualization three 5 mm ports were placed; 1 cephalad and 2 laterally. Gallbladder was grasped and retracted. It was acutely inflamed. There were chronic adhesions to the gallbladder. These were taken down. Dissection was carried out at the jada hepatis, identifying the cystic duct which was clipped and transected. The junction of it and the common duct was identified. The lymph node in the perihepatic area was identified and taken with the gallbladder. I did have some minor bleeding which was controlled with clips in the area of the cystic duct and the gallbladder was then dissected away from the liver in the usual fashion, placed into an Endobag. After appropriate hemostasis and irrigation, the Endobag was removed after placing a 15 round Holden-Perdomo drain through the lateral 5 mm port into the subhepatic space. The drain was secured using 3-0 nylon suture. The gallbladder was removed through the umbilical site using a 5 mm camera and then the umbilical hernia repaired using interrupted 0 Ethibond suture and then the skin reapproximated at all incisions using 4-0 nylon suture. The umbilicus was reattached to the fascia using 2-0 chromic catgut suture. The patient tolerated the procedure well and was transferred to recovery room in stable condition. I attest to the content of the Intraoperative Record and any orders documented therein. Any exception s are noted below.
--- NOTE | 2017-08-21 08:55 | Anesthesiology Progress Note ---
Anesthesia Post Op Note Date & Time Aug 21, 2017 at 08:55 Vital Signs Pain Intensity: 4 Vital Signs Past 12 Hours Date Time Temp Pulse Resp B/P (MAP) Pulse Ox O2 Delivery O2 Flow Rate FiO2 08/21/17 08:42 60 15 08/21/17 08:42 60 15 94 08/21/17 08:41 159/77 08/21/17 08:37 65 16 96 08/21/17 08:37 65 16 08/21/17 08:36 63 14 167/81 96 08/21/17 08:36 63 14 08/21/17 08:33 174/90 08/21/17 08:32 183/81 08/21/17 08:31 71 23 96 08/21/17 08:31 72 23 08/21/17 08:26 75 16 08/21/17 08:26 74 16 186/83 95 08/21/17 08:22 166/81 08/21/17 08:21 75 12 08/21/17 08:21 75 12 97 08/21/17 08:17 174/76 08/21/17 08:16 80 12 08/21/17 08:16 36.0 81 16 174/76 98 Oxymask 10 08/21/17 08:16 80 12 99 08/21/17 05:38 36.8 51 20 168/83 (111) 95 Room Air 08/20/17 23:20 Room Air 08/20/17 23:20 37.1 56 16 157/80 (105) 94 Room Air Notes Mental Status: alert / awake / arousable, participated in evaluation Pt Amnestic to Procedure: Yes Nausea / Vomiting: adequately controlled Pain: adequately controlled Airway Patency, RR, SpO2: stable & adequate BP & HR: stable & adequate Hydration State: stable & adequate Anesthetic Complications: no major complications apparent
--- NOTE | 2017-08-21 09:49 | OPERATIVE REPORT ---
DATE OF OPERATION: 08/21/2017 ADDENDUM My finance assistant helped with prepping and draping the patient, as well as entering the abdominal cavity and placing the ports and then in retraction and removal of the gallbladder as well as closure of the abdomen. I attest to the content of the Intraoperative Record and any orders documented therein. Any exception s are noted below.
[2017-08-21 10:28] LABS: HEMATOCRIT 38.3 % (42-52); MEAN CELL VOLUME 94.1 fL (80-100); MEAN CORPUSCULAR HGB CONC 32.9 g/dl (32-36); MEAN PLATELET VOLUME 9.5 fL (7.4-10.4); PLATELET COUNT 311 K/uL (130-400); RED BLOOD COUNT 4.07 M/uL (4.7-6.1); WHITE BLOOD COUNT 7.57 K/uL (4.8-10.8)
[2017-08-21] MEDS: PANTOprazole SOD 40 MG TAB PO SCH (10:29)
[2017-08-21] MEDS: AMLODIPINE BESYLATE 5 MG TAB PO SCH (10:29)
[2017-08-21] MEDS: CHOLECALCIFEROL 1000 INTER.UNIT TAB PO SCH (10:29)
[2017-08-21] MEDS: ASPIRIN 81 MG ECTAB PO SCH (10:29)
[2017-08-21] MEDS: THIAMINE HCL 100 MG TAB PO SCH (10:30)
[2017-08-21] MEDS: NICOTINE 21 MG/24 HR TDSY TD SCH (10:30)
[2017-08-21] MEDS: VALSARTAN 80 MG TAB PO SCH (10:31)
[2017-08-21 11:02] LABS: BUN/CREATININE RATIO 9.1 (10-20); CALCIUM 8.7 mg/dl (8.5-10.1); CREATININE 0.95 mg/dl (0.60-1.40); POTASSIUM 3.8 mmol/L (3.5-5.1)
[2017-08-21 11:05] LABS: ALB/GLOB RATIO 0.7 (0.9-2)
[2017-08-21] MEDS: DOCUSATE SODIUM/SENNA 50/8.6MG TAB PO SCH ×2 (12:09→21:06)
--- NOTE | 2017-08-21 14:30 | Progress Note ---
Subjective Date of Service: Aug 21, 2017. Subjective Pt evaluation today including: conversation w/ patient, conversation w/ family , physical exam, chart review, lab review pt seen in followup at bedside, underwent gita today, tolerated well. drain in place. remains on IV abx, repeat blood cultures pending. pain controlled. ate lunch. no complaints. all remaining ros reviewed and are negative. Problem List Medical Problems: (1) Abdominal lymphadenopathy Status: Acute (2) Epigastric abdominal pain Status: Acute (3) Pancreatitis Status: Acute (4) Retroperitoneal fluid collection Status: Acute Objective Vital Signs Date Time Temp Pulse Resp B/P (MAP) Pulse Ox O2 Delivery O2 Flow Rate FiO2 08/21/17 12:32 37.0 68 20 147/77 (100) 91 Room Air 08/21/17 11:28 37.0 56 16 152/96 (114) 93 Room Air 08/21/17 10:36 53 16 161/90 (113) 93 Room Air 08/21/17 09:54 36.5 53 20 167/95 (119) 96 Room Air 08/21/17 09:30 Room Air 08/21/17 09:30 94 Nasal Cannula 2.0 08/21/17 09:30 36.5 52 16 161/75 (103) 95 Nasal Cannula 2.0 08/21/17 09:16 36.2 08/21/17 09:14 50 18 08/21/17 09:14 50 18 95 08/21/17 09:11 164/82 08/21/17 09:09 49 22 08/21/17 09:09 49 22 94 08/21/17 09:06 158/81 08/21/17 09:04 51 16 08/21/17 09:04 51 16 96 08/21/17 09:03 53 16 97 08/21/17 09:03 53 16 08/21/17 09:01 162/85 08/21/17 08:58 51 15 94 08/21/17 08:58 51 15 08/21/17 08:56 165/79 08/21/17 08:53 55 22 08/21/17 08:53 55 22 94 08/21/17 08:51 152/78 08/21/17 08:48 55 15 08/21/17 08:48 55 15 94 08/21/17 08:47 155/80 08/21/17 08:43 59 13 93 08/21/17 08:43 59 13 08/21/17 08:42 60 15 08/21/17 08:42 60 15 94 08/21/17 08:41 159/77 08/21/17 08:37 65 16 96 08/21/17 08:37 65 16 08/21/17 08:36 63 14 167/81 96 08/21/17 08:36 63 14 08/21/17 08:33 174/90 08/21/17 08:32 183/81 08/21/17 08:31 71 23 96 08/21/17 08:31 72 23 08/21/17 08:26 75 16 08/21/17 08:26 74 16 186/83 95 08/21/17 08:22 166/81 08/21/17 08:21 75 12 08/21/17 08:21 75 12 97 08/21/17 08:17 174/76 08/21/17 08:16 80 12 08/21/17 08:16 36.0 81 16 174/76 98 Oxymask 10 08/21/17 08:16 80 12 99 08/21/17 05:38 36.8 51 20 168/83 (111) 95 Room Air 08/20/17 23:20 Room Air 08/20/17 23:20 37.1 56 16 157/80 (105) 94 Room Air 08/20/17 15:05 Room Air 08/20/17 14:54 37.1 57 16 143/77 (99) 93 Room Air Physical Exam General Appearance: WD/WN, no apparent distress Eyes: normal inspection, EOMI Neck: supple Respiratory/Chest: lungs clear, normal breath sounds, no respiratory distress Cardiovascular: regular rate, rhythm, no edema Abdomen: non tender, soft, + pertinent finding (dressing intact, figueroa drain with sersang fluid) Extremities: non-tender, normal inspection, no pedal edema Neurologic/Psychiatric: alert, oriented x 3 Skin: normal color, no rash Laboratory Results Item Value Date Time Blood Culture - Final Complete 08/15/17 190 Blood Streptococcus Salivarius Blood Culture - Preliminary Resulted 08/15/17 1857 Blood Streptococcus Salivarius Last 24 Hours Test 08/21/17 09:00 08/21/17 10:17 White Blood Count 7.57 K/uL Red Blood Count 4.07 M/uL Hemoglobin 12.6 g/dL Hematocrit 38.3 % Mean Corpuscular Volume 94.1 fL Mean Corpuscular Hemoglobin 31.0 pg Mean Corpuscular Hemoglobin Concent 32.9 g/dl RDW Standard Deviation 45.9 fL RDW Coefficient of Variation 13.4 % Platelet Count 311 K/uL Mean Platelet Volume 9.5 fL Sodium Level 139 mmol/L Potassium Level 3.8 mmol/L Chloride Level 107 mmol/L Carbon Dioxide Level 26 mmol/L Anion Gap 7.0 mmol/L Blood Urea Nitrogen 9 mg/dl Creatinine 0.95 mg/dl Est Creatinine Clear Calc Drug Dose 89.0 ml/min Estimated GFR () 97.0 Estimated GFR (Non- 83.7 BUN/Creatinine Ratio 9.1 Random Glucose 148 mg/dl Calcium Level 8.7 mg/dl Total Bilirubin 1.2 mg/dl Aspartate Amino Transf (AST/SGOT) 74 U/L Alanine Aminotransferase (ALT/SGPT) 187 U/L Alkaline Phosphatase 280 U/L Total Protein 6.5 gm/dl Albumin 2.6 gm/dl Globulin 3.9 gm/dl Albumin/Globulin Ratio 0.7 Assessment and Plan (1) Streptococcal sepsis Assessment & Plan: continue abx IV for now when eating, can change to po repeat blood cultures pending. will need 2 weeks abx, would transition to po augmentin x 14 days at d/c. (2) Biliary sepsis
[2017-08-21] MEDS ORDERED: HYDR-5688 PO (16:04)
--- NOTE | 2017-08-21 16:06 | Discharge Instructions ---
Discharge Instructions Date of Service Aug 21, 2017. Admission Reason for Admission: Dilation Of Biliary Tract Discharge Discharge Diagnosis / Problem: cholecystitis Discharge Goals Goal(s): Decrease discomfort, Improve function, Improve disease control Activity Recommendations Activity Limitations: as noted below Lifting Limitations: no more than 25 pounds Exercise/Sports Limitations: until after follow-up appointment May Resume Sexual Activity: when tolerated Shower/Bathe: tomorrow Driving or Machine Use: resume 3 days after discharge SPECIAL CARE INSTRUCTIONS: * Cover incisions and change daily for comfort/drainage. * Empty drain 2-3 times per day and record. * May use ibuprofen for pain as tolerated. * Expect some swelling and bruising. Call your doctor if: * Temperature above 101 degrees * Pain not relieved by pain medicine ordered * There is increased drainage or redness from any incision * You have any unanswered questions or concerns [phone]. FOLLOW UP VISIT: If not already scheduled, please call the office for a follow-up visit. for next Saturday- drain removal OFFICE PHONE NUMBER: Dr. Montgomery Office . Current Hospital Diet Patient's current hospital diet: Low Fat Diet Discharge Diet Recommended Diet: Regular Diet Procedures Procedures Performed: Laparoscopic Cholecystectomy, Repair of Umbilical Hernia, lymphnode bx Pending Studies Studies pending at discharge: no Laboratory Results Lipid Panel Test 08/04/17 06:37 Range/Units Triglycerides Level 185 H 0-150 mg/dl Cholesterol Level 163 0-200 mg/dl HDL Cholesterol 44 mg/dl Cholesterol/HDL Ratio 4.2 LDL Cholesterol, Calculated 82 mg/dl Medical Emergencies . Who to Call and When: Medical Emergencies: If at any time you feel your situation is an emergency, please call 911 immediately. . Non-Emergent Contact Non-Emergency issues call your: Primary Care Provider, Surgeon . "Provider Documentation" section prepared by Afshin Montgomery. . VTE Core Measure Inpt VTE Proph given/why not?: Unfractionated heparin SQ, SCD's
--- NOTE | 2017-08-21 17:04 | Progress Note ---
Subjective Date of Service: Aug 21, 2017. Subjective pt was seen post operatively and was at the bedside, he is groggy but otherwise is feeling well Problem List Medical Problems: (1) Abdominal lymphadenopathy Status: Acute (2) Epigastric abdominal pain Status: Acute (3) Pancreatitis Status: Acute (4) Retroperitoneal fluid collection Status: Acute Review of Systems Constitutional: No fever, No chills Respiratory: No cough, No shortness of breath Cardiac: No chest pain, No edema Abdomen: + pain, + constipation, No nausea, No vomiting, No diarrhea Musculoskeletal: No joint pain, No muscle pain Male : No dysuria, No urinary frequency Neurologic: No memory loss, No paralysis Psychiatric: No depression symptoms, No anhedonism Objective Vital Signs Date Time Temp Pulse Resp B/P (MAP) Pulse Ox O2 Delivery O2 Flow Rate FiO2 08/21/17 15:22 37.0 57 18 160/85 (110) 96 Room Air 08/21/17 12:32 37.0 68 20 147/77 (100) 91 Room Air 08/21/17 11:28 37.0 56 16 152/96 (114) 93 Room Air 08/21/17 10:36 53 16 161/90 (113) 93 Room Air 08/21/17 09:54 36.5 53 20 167/95 (119) 96 Room Air 08/21/17 09:30 Room Air 08/21/17 09:30 94 Nasal Cannula 2.0 08/21/17 09:30 36.5 52 16 161/75 (103) 95 Nasal Cannula 2.0 08/21/17 09:16 36.2 08/21/17 09:14 50 18 08/21/17 09:14 50 18 95 08/21/17 09:11 164/82 08/21/17 09:09 49 22 08/21/17 09:09 49 22 94 08/21/17 09:06 158/81 08/21/17 09:04 51 16 08/21/17 09:04 51 16 96 08/21/17 09:03 53 16 97 08/21/17 09:03 53 16 08/21/17 09:01 162/85 08/21/17 08:58 51 15 94 08/21/17 08:58 51 15 08/21/17 08:56 165/79 08/21/17 08:53 55 22 08/21/17 08:53 55 22 94 08/21/17 08:51 152/78 08/21/17 08:48 55 15 08/21/17 08:48 55 15 94 08/21/17 08:47 155/80 08/21/17 08:43 59 13 93 08/21/17 08:43 59 13 08/21/17 08:42 60 15 08/21/17 08:42 60 15 94 08/21/17 08:41 159/77 08/21/17 08:37 65 16 96 08/21/17 08:37 65 16 08/21/17 08:36 63 14 167/81 96 08/21/17 08:36 63 14 08/21/17 08:33 174/90 08/21/17 08:32 183/81 08/21/17 08:31 71 23 96 08/21/17 08:31 72 23 08/21/17 08:26 75 16 08/21/17 08:26 74 16 186/83 95 08/21/17 08:22 166/81 08/21/17 08:21 75 12 08/21/17 08:21 75 12 97 08/21/17 08:17 174/76 08/21/17 08:16 80 12 08/21/17 08:16 36.0 81 16 174/76 98 Oxymask 10 08/21/17 08:16 80 12 99 08/21/17 05:38 36.8 51 20 168/83 (111) 95 Room Air 08/20/17 23:20 Room Air 08/20/17 23:20 37.1 56 16 157/80 (105) 94 Room Air Physical Exam General Appearance: WD/WN, + mild distress Eyes: normal inspection, sclerae normal Respiratory/Chest: chest non-tender, lungs clear, normal breath sounds Cardiovascular: regular rate, rhythm, no murmur Abdomen: soft, + abnormal bowel sounds, + tenderness Extremities: no pedal edema, no calf tenderness Neurologic/Psychiatric: alert, oriented x 3 Skin: normal color, warm/dry Laboratory Results Last 24 Hours Test 08/21/17 09:00 08/21/17 10:17 White Blood Count 7.57 K/uL Red Blood Count 4.07 M/uL Hemoglobin 12.6 g/dL Hematocrit 38.3 % Mean Corpuscular Volume 94.1 fL Mean Corpuscular Hemoglobin 31.0 pg Mean Corpuscular Hemoglobin Concent 32.9 g/dl RDW Standard Deviation 45.9 fL RDW Coefficient of Variation 13.4 % Platelet Count 311 K/uL Mean Platelet Volume 9.5 fL Sodium Level 139 mmol/L Potassium Level 3.8 mmol/L Chloride Level 107 mmol/L Carbon Dioxide Level 26 mmol/L Anion Gap 7.0 mmol/L Blood Urea Nitrogen 9 mg/dl Creatinine 0.95 mg/dl Est Creatinine Clear Calc Drug Dose 89.0 ml/min Estimated GFR () 97.0 Estimated GFR (Non- 83.7 BUN/Creatinine Ratio 9.1 Random Glucose 148 mg/dl Calcium Level 8.7 mg/dl Total Bilirubin 1.2 mg/dl Aspartate Amino Transf (AST/SGOT) 74 U/L Alanine Aminotransferase (ALT/SGPT) 187 U/L Alkaline Phosphatase 280 U/L Total Protein 6.5 gm/dl Albumin 2.6 gm/dl Globulin 3.9 gm/dl Albumin/Globulin Ratio 0.7 Assessment and Plan 67 M with cholecystitis/cholangitis and acute pancreatitis, history of alcohol abuse cholangitis-s/p ERCP with improvement after sweep & stent of CBD and sphincterotomy - cholangitis improved w biliary drainage, but with blood cultures positive move to cholecystectomy 08/21, Dr Montgomery to oversee advance of diet gram positive bacteremia,strep felt secondary to cholangitis source, vancomycin added to typical GI coverage, given bacteremia, Dr Montgomery preformed cholecystectomy 08/21, Dr fine recommends continued iv antibiotics but at discharge additional 2 weeks abx, with transition to po augmentin x 14 days at d /c. HTN: controlled with Norvasc 10 mg daily and Valsartan 160 mg daily H/O ETOH Use: Abstinence since initial pancreatitis on previous admission - transition to mvi post procedure Tobacco Use: Continue nicotine patch, cessation counselling DVT Prophylaxis: Heparin 5000 units SC BID
--- NOTE | 2017-08-21 18:10 | PROGRESS NOTE ---
DATE: 08/21/2017 SUBJECTIVE: The patient is status post laparoscopic cholecystectomy. Today Dr. Montgomery report that the gallbladder was significantly diseased with a lot of adhesions, but he was able to remove it successfully along with a lymph node near the gallbladder. The pathology on the endoscopic brushings and the endoscopic ultrasound FNA were both benign. We are still waiting to hear about the biopsy removed. OBJECTIVE: The patient is doing well. He is afebrile. IMPRESSION: The patient has gallbladder out today. Hopefully, be able to be discharged in the next 24-48 hours and followed up as an outpatient.
[2017-08-21] MEDS: LORAZEPAM INJ 1 MG in SYRINGE 0.5 ML IV PRN (23:08)
[2017-08-22] MEDS: AMPICILLIN IV 2,000 MG in SODIUM CHLOR 0.9% AD-VAN 100ML 100 ML IV SCH ×4 (03:10→14:27)
[2017-08-22 03:25] VITALS: BP 158/89; PULSE 60; TEMP 36.9; O2SAT 93
[2017-08-22 06:00] LABS: HEMATOCRIT 37.7 % (42-52); MEAN CELL VOLUME 94.3 fL (80-100); MEAN CORPUSCULAR HGB CONC 32.9 g/dl (32-36); MEAN PLATELET VOLUME 9.4 fL (7.4-10.4); PLATELET COUNT 320 K/uL (130-400); WHITE BLOOD COUNT 8.45 K/uL (4.8-10.8)
[2017-08-22 06:23] LABS: BUN/CREATININE RATIO 8.8 (10-20); CALCIUM 8.6 mg/dl (8.5-10.1); CREATININE 0.93 mg/dl (0.60-1.40); POTASSIUM 3.9 mmol/L (3.5-5.1)
[2017-08-22 06:26] LABS: ALB/GLOB RATIO 0.7 (0.9-2)
--- NOTE | 2017-08-22 06:54 | Surgery Progress Note ---
Surgery Progress Note Date of Service Aug 22, 2017. Subjective doing well- serosang drainage Positive flatus Objective Vital Signs: Date Time Temp Pulse Resp B/P (MAP) Pulse Ox O2 Delivery O2 Flow Rate FiO2 08/22/17 03:25 36.9 60 16 158/89 (112) 93 Room Air 08/21/17 23:15 Room Air 08/21/17 22:50 37.1 60 16 155/82 (106) 92 Room Air 08/21/17 19:49 37.1 66 18 138/83 (101) 92 Room Air 08/21/17 15:22 37.0 57 18 160/85 (110) 96 Room Air 08/21/17 15:20 Room Air 08/21/17 12:32 37.0 68 20 147/77 (100) 91 Room Air 08/21/17 11:28 37.0 56 16 152/96 (114) 93 Room Air 08/21/17 10:36 53 16 161/90 (113) 93 Room Air 08/21/17 09:54 36.5 53 20 167/95 (119) 96 Room Air 08/21/17 09:30 Room Air 08/21/17 09:30 94 Nasal Cannula 2.0 08/21/17 09:30 36.5 52 16 161/75 (103) 95 Nasal Cannula 2.0 08/21/17 09:16 36.2 08/21/17 09:14 50 18 08/21/17 09:14 50 18 95 08/21/17 09:11 164/82 08/21/17 09:09 49 22 08/21/17 09:09 49 22 94 08/21/17 09:06 158/81 08/21/17 09:04 51 16 08/21/17 09:04 51 16 96 08/21/17 09:03 53 16 97 08/21/17 09:03 53 16 08/21/17 09:01 162/85 08/21/17 08:58 51 15 94 08/21/17 08:58 51 15 08/21/17 08:56 165/79 08/21/17 08:53 55 22 08/21/17 08:53 55 22 94 08/21/17 08:51 152/78 08/21/17 08:48 55 15 08/21/17 08:48 55 15 94 08/21/17 08:47 155/80 08/21/17 08:43 59 13 93 08/21/17 08:43 59 13 08/21/17 08:42 60 15 08/21/17 08:42 60 15 94 08/21/17 08:41 159/77 08/21/17 08:37 65 16 96 08/21/17 08:37 65 16 08/21/17 08:36 63 14 167/81 96 08/21/17 08:36 63 14 08/21/17 08:33 174/90 08/21/17 08:32 183/81 08/21/17 08:31 71 23 96 08/21/17 08:31 72 23 08/21/17 08:26 75 16 08/21/17 08:26 74 16 186/83 95 08/21/17 08:22 166/81 08/21/17 08:21 75 12 08/21/17 08:21 75 12 97 08/21/17 08:17 174/76 08/21/17 08:16 80 12 08/21/17 08:16 36.0 81 16 174/76 98 Oxymask 10 08/21/17 08:16 80 12 99 General Appearance: no apparent distress Respiratory/Chest: no respiratory distress Abdomen: non tender, + pertinent finding (mild distention) Laboratory Results: Results Past 24 Hours Test 08/21/17 09:00 08/21/17 10:17 08/22/17 05:43 Range/Units White Blood Count 7.57 8.45 4.8-10.8 K/uL Red Blood Count 4.07 4.00 4.7-6.1 M/uL Hemoglobin 12.6 12.4 14.0-18.0 g/dL Hematocrit 38.3 37.7 42-52 % Mean Corpuscular Volume 94.1 94.3 80-100 fL Mean Corpuscular Hemoglobin 31.0 31.0 25-34 pg Mean Corpuscular Hemoglobin Concent 32.9 32.9 32-36 g/dl RDW Standard Deviation 45.9 46.3 36.4-46.3 fL RDW Coefficient of Variation 13.4 13.4 11.5-14.5 % Platelet Count 311 320 130-400 K/uL Mean Platelet Volume 9.5 9.4 7.4-10.4 fL Sodium Level 139 139 136-145 mmol/L Potassium Level 3.8 3.9 3.5-5.1 mmol/L Chloride Level 107 105 98-107 mmol/L Carbon Dioxide Level 26 27 21-32 mmol/L Anion Gap 7.0 7.0 3-11 mmol/L Blood Urea Nitrogen 9 8 7-18 mg/dl Creatinine 0.95 0.93 0.60-1.40 mg/dl Est Creatinine Clear Calc Drug Dose 89.0 90.9 ml/min Estimated GFR () 97.0 99.5 Estimated GFR (Non- 83.7 85.8 BUN/Creatinine Ratio 9.1 8.8 10-20 Random Glucose 148 147 70-99 mg/dl Calcium Level 8.7 8.6 8.5-10.1 mg/dl Total Bilirubin 1.2 1.0 0.2-1 mg/dl Aspartate Amino Transf (AST/SGOT) 74 60 15-37 U/L Alanine Aminotransferase (ALT/SGPT) 187 154 12-78 U/L Alkaline Phosphatase 280 258 45-117 U/L Total Protein 6.5 6.6 6.4-8.2 gm/dl Albumin 2.6 2.6 3.4-5.0 gm/dl Globulin 3.9 4.0 2.5-4.0 gm/dl Albumin/Globulin Ratio 0.7 0.7 0.9-2 Direct Bilirubin 0.7 0-0.2 mg/dl Assessment & Plan 08/22/17- s/p lap gita, drain placement- can d/c with drain when ok with med team (?today)- script for Cely in chart and instructions 08/21/17- plan for lap gita today- keep at least overnight no acute changes 08/20/17- pt is doing well s/p ERCP and MRCP- will discuss with GI team- consider lap gita tomorrow if all agree- if passing sludge at risk of occluding stent. Cystic duct is patent per Hida. Does not appear to have necrotizing cholecystitis 08/21/17- plan for lap gita today- keep at least overnight no acute changes 08/20/17- pt is doing well s/p ERCP and MRCP- will discuss with GI team- consider lap gita tomorrow if all agree- if passing sludge at risk of occluding stent. Cystic duct is patent per Hida. Does not appear to have necrotizing cholecystitis
[2017-08-22 07:21] VITALS: BP 134/80; PULSE 60; TEMP 37.1; O2SAT 91
[2017-08-22] MEDS ORDERED: HEPARIN SOD 5000 UNIT/0.5 ML CARP SQ SCH (08:00)
[2017-08-22] MEDS: CHOLECALCIFEROL 1000 INTER.UNIT TAB PO SCH (08:38)
[2017-08-22] MEDS: DOCUSATE SODIUM/SENNA 50/8.6MG TAB PO SCH (08:38)
[2017-08-22] MEDS: PANTOprazole SOD 40 MG TAB PO SCH (08:38)
[2017-08-22] MEDS: ASPIRIN 81 MG ECTAB PO SCH (08:38)
[2017-08-22] MEDS: VALSARTAN 80 MG TAB PO SCH (08:38)
[2017-08-22] MEDS: AMLODIPINE BESYLATE 5 MG TAB PO SCH (08:38)
[2017-08-22] MEDS: NICOTINE 21 MG/24 HR TDSY TD SCH (08:40)
[2017-08-22] MEDS: LACTATED RINGER'S 1000ML 1,000 ML IV SCH (08:47)
[2017-08-22] MEDS ORDERED: MULTIVITAMIN TAB PO SCH (09:00)
--- NOTE | 2017-08-22 09:41 | Anesthesiology Progress Note ---
Anesthesia Post Op Note Date & Time Aug 22, 2017 at 09:41 Vital Signs Pain Intensity: 0.0 Vital Signs Past 12 Hours Date Time Temp Pulse Resp B/P (MAP) Pulse Ox O2 Delivery O2 Flow Rate FiO2 08/22/17 07:25 Room Air 08/22/17 07:21 37.1 60 19 134/80 (98) 91 Room Air 08/22/17 03:25 36.9 60 16 158/89 (112) 93 Room Air 08/21/17 23:15 Room Air 08/21/17 22:50 37.1 60 16 155/82 (106) 92 Room Air Notes Mental Status: alert / awake / arousable, participated in evaluation Pt Amnestic to Procedure: Yes Nausea / Vomiting: adequately controlled Pain: adequately controlled Airway Patency, RR, SpO2: stable & adequate BP & HR: stable & adequate Hydration State: stable & adequate Anesthetic Complications: no major complications apparent
[2017-08-22] MEDS ORDERED: AMOX875T PO (10:49)
[2017-08-22 11:37] VITALS: BP 122/74; PULSE 60; TEMP 37.1; O2SAT 92
--- NOTE | 2017-08-22 14:46 | ECHOCARDIOGRAM REPORT ---
*NOTICE TO RECEIVING REPUBLICAN AGENCY This information is strictly Confidential and protected under [place] law. [place] law prohibits you from making any further disclosure of this information unless further disclosure is expressly permitted by the written consent of the person to whom it pertains or is authorized by law. A general authorization for the release of medical or other information is not sufficient for this purpose. Hospital accepts no responsibility if the information is made available to any other person, INCLUDING THE PATIENT. Interpretation Summary * Name: NEFTALY PALOMINO Study Date: 08/22/2017 12:50 PM BP: 122/74 mmHg * Patient Location: .[facility]\S\W351\S\2 HR: 60 * : 1950 (M/d/yyyy) Gender: Male Height: 70 in * Age: 67 yrs Ethnicity: [place] Weight: 206 lb * Ordering Physician: Jones Maguire * Referring Physician: Self, Referred * Performed By: Molly Austin [facility] * * Reason For Study: BACTEREMIA DUE TO STREP / EVAL FOR ENDOCARDITIS * BSA: 2.1 m2 * There is no evidence of a mass or vegetation. This does not rule out endocarditis. * -- Conclusions -- * There is borderline concentric left ventricular hypertrophy. * Left ventricular systolic function is normal. * Grade I diastolic dysfunction, (abnormal relaxation pattern). * The left atrium is mildly dilated. Procedure Details * A complete two-dimensional transthoracic echocardiogram was performed (2D, M-mode, Doppler and color flow Doppler). Left Ventricle * The left ventricle is normal in size. * There is borderline concentric left ventricular hypertrophy. * The basal septum is thickened and angulated consistent with sigmoid septum. * Left ventricular systolic function is normal. * Grade I diastolic dysfunction, (abnormal relaxation pattern). * Ejection Fraction = 60-65%. * The left ventricular wall motion is normal. Right Ventricle * The right ventricle is normal in size and function. Atria * The left atrium is mildly dilated. * Right atrial size is normal. Mitral Valve * The mitral valve is grossly normal. * Significant mitral regurgitation is absent. Tricuspid Valve * The tricuspid valve anatomy is normal. * There is mild tricuspid regurgitation. * Right ventricular systolic pressure is normal. Aortic Valve * The aortic valve is normal in structure and function. * The aortic valve is trileaflet. * No hemodynamically significant valvular aortic stenosis. * There is no significant aortic regurgitation. Great Vessels * The aortic root is normal size. Pericardium/Pleural * There is no pericardial effusion. MMode 2D Measurements and Calculations IVSd 1.8 cm IVSs 1.7 cm LVIDd 3.7 cm LVIDs 2.5 cm LVPWd 1.3 cm LVPWs 1.5 cm IVS/LVPW 1.4 FS 31.0 % EDV(Teich) 57.8 ml ESV(Teich) 23.4 ml EF(Teich) 59.6 % EDV(cubed) 50.3 ml ESV(cubed) 16.5 ml EF(cubed) 67.2 % % IVS thick -3.04 % % LVPW thick 14.8 % LV mass(C)d 219.5 grams LV mass(C)dI 103.8 grams/m\S\2 LV mass(C)s 148.2 grams LV mass(C)sI 70.1 grams/m\S\2 SV(Teich) 34.4 ml SI(Teich) 16.3 ml/m\S\2 SV(cubed) 33.8 ml SI(cubed) 16.0 ml/m\S\2 Ao root diam 3.5 cm Ao root area 9.5 cm\S\2 ACS 2.3 cm LA dimension 4.3 cm LA/Ao 1.2 LVOT diam 2.0 cm LVOT area 3.1 cm\S\2 LVAd ap4 39.5 cm\S\2 LVLd ap4 8.7 cm EDV(MOD-sp4) 144.5 ml EDV(sp4-el) 152.5 ml LVAs ap4 22.8 cm\S\2 LVLs ap4 7.1 cm ESV(MOD-sp4) 60.5 ml ESV(sp4-el) 61.9 ml EF(MOD-sp4) 58.1 % EF(sp4-el) 59.4 % LVAd ap2 40.5 cm\S\2 LVLd ap2 8.9 cm EDV(MOD-sp2) 150.0 ml EDV(sp2-el) 156.7 ml LVAs ap2 24.1 cm\S\2 LVLs ap2 7.3 cm ESV(MOD-sp2) 63.4 ml ESV(sp2-el) 67.0 ml EF(MOD-sp2) 57.8 % EF(sp2-el) 57.2 % LVLd %diff 2.7 % EDV(MOD-bp) 146.2 ml LVLs %diff 3.3 % ESV(MOD-bp) 62.6 ml EF(MOD-bp) 57.1 % SV(MOD-sp4) 84.0 ml SI(MOD-sp4) 39.7 ml/m\S\2 SV(MOD-sp2) 86.7 ml SI(MOD-sp2) 41.0 ml/m\S\2 SV(MOD-bp) 83.5 ml SI(MOD-bp) 39.5 ml/m\S\2 SV(sp4-el) 90.6 ml SI(sp4-el) 42.9 ml/m\S\2 SV(sp2-el) 89.6 ml SI(sp2-el) 42.4 ml/m\S\2 Doppler Measurements and Calculations MV E max richard 92.7 cm/sec MV A max richard 76.0 cm/sec MV E/A 1.2 MV P1/2t max richard 96.3 cm/sec MV P1/2t 72.8 msec MVA(P1/2t) 3.0 cm\S\2 MV dec slope 387.2 cm/sec\S\2 MV dec time 0.19 sec Ao V2 max 142.5 cm/sec Ao max PG 8.1 mmHg Ao max PG (full) 2.0 mmHg ARMANI(V,A) 2.7 cm\S\2 ARMANI(V,D) 2.7 cm\S\2 LV V1 max PG 6.2 mmHg LV V1 max 124.0 cm/sec PA V2 max 139.1 cm/sec PA max PG 7.7 mmHg PI max richard 165.0 cm/sec PI max PG 10.9 mmHg PI dec slope 116.5 cm/sec\S\2 PI P1/2t 414.9 msec TR max richard 254.5 cm/sec
--- NOTE | 2017-08-22 14:51 | Progress Note ---
Subjective Date of Service: Aug 22, 2017. Subjective repeat cultures negative, afebrile. s/p gita, echo negative, no overnight events. Problem List Medical Problems: (1) Abdominal lymphadenopathy Status: Acute (2) Epigastric abdominal pain Status: Acute (3) Pancreatitis Status: Acute (4) Retroperitoneal fluid collection Status: Acute Objective Vital Signs Date Time Temp Pulse Resp B/P (MAP) Pulse Ox O2 Delivery O2 Flow Rate FiO2 08/22/17 11:37 37.1 60 16 122/74 (90) 92 Room Air 08/22/17 07:25 Room Air 08/22/17 07:21 37.1 60 19 134/80 (98) 91 Room Air 08/22/17 03:25 36.9 60 16 158/89 (112) 93 Room Air 08/21/17 23:15 Room Air 08/21/17 22:50 37.1 60 16 155/82 (106) 92 Room Air 08/21/17 19:49 37.1 66 18 138/83 (101) 92 Room Air 08/21/17 15:22 37.0 57 18 160/85 (110) 96 Room Air 08/21/17 15:20 Room Air Laboratory Results Item Value Date Time Blood Culture - Preliminary Resulted 08/20/17 1547 Blood NO GROWTH TO DATE. Blood Culture - Preliminary Resulted 08/20/17 1536 Blood NO GROWTH TO DATE. Blood Culture - Final Complete 08/15/17 1901 Blood Streptococcus Salivarius Blood Culture - Preliminary Resulted 08/15/17 1857 Blood Streptococcus Salivarius Last 24 Hours Test 08/22/17 05:43 White Blood Count 8.45 K/uL Red Blood Count 4.00 M/uL Hemoglobin 12.4 g/dL Hematocrit 37.7 % Mean Corpuscular Volume 94.3 fL Mean Corpuscular Hemoglobin 31.0 pg Mean Corpuscular Hemoglobin Concent 32.9 g/dl RDW Standard Deviation 46.3 fL RDW Coefficient of Variation 13.4 % Platelet Count 320 K/uL Mean Platelet Volume 9.4 fL Sodium Level 139 mmol/L Potassium Level 3.9 mmol/L Chloride Level 105 mmol/L Carbon Dioxide Level 27 mmol/L Anion Gap 7.0 mmol/L Blood Urea Nitrogen 8 mg/dl Creatinine 0.93 mg/dl Est Creatinine Clear Calc Drug Dose 90.9 ml/min Estimated GFR () 99.5 Estimated GFR (Non- 85.8 BUN/Creatinine Ratio 8.8 Random Glucose 147 mg/dl Calcium Level 8.6 mg/dl Total Bilirubin 1.0 mg/dl Direct Bilirubin 0.7 mg/dl Aspartate Amino Transf (AST/SGOT) 60 U/L Alanine Aminotransferase (ALT/SGPT) 154 U/L Alkaline Phosphatase 258 U/L Total Protein 6.6 gm/dl Albumin 2.6 gm/dl Globulin 4.0 gm/dl Albumin/Globulin Ratio 0.7 Assessment and Plan (1) Streptococcal sepsis Assessment & Plan: continue abx IV for now when eating, can change to po repeat blood cultures pending. will need 2 weeks abx, would transition to po augmentin x 14 days at d/c. (2) Biliary sepsis
[2017-08-22 15:06] VITALS: BP 136/76; PULSE 68; TEMP 36.9; O2SAT 91
[2017-08-22 15:34] VITALS: BP 136/76; PULSE 68; TEMP 36.9; O2SAT 91
[2017-08-22] MEDS ORDERED: HYDR-5688 PO (15:57)
--- NOTE | 2017-08-22 17:35 | Discharge Summary ---
Discharge Summary Date of Service Aug 22, 2017. Discharge Summary Admission Date: Aug 14, 2017 at 21:34 Discharge Date: Aug 22, 2017 Discharge Disposition: Home Principal Diagnosis: gallstone pancreatitis Problems/Secondary Diagnoses: 1. acute/chronic cholecystitis with probable cholangitis 2. streptococcal septicemia 3. abnormal LFTs 4. h/o alcohol abuse 5. h/o prostate cancer 6. retroperitoneal lymphadenopathy - s/p biopsy, results pending Immunizations: Have You Had Influenza Vaccine: Unknown History of Tetanus Vaccine?: Unknown History of Pneumococcal: Unknown History of Hepatitis B Vaccine: Unknown Procedures: 1. CT abd/pelvis - IMPRESSION: 1. Moderately improved exam with the findings of pancreatitis resolved. 2. Persistent mild wall edema of the gallbladder unchanged in the prior exam. 3. Mild stable biliary ductal prominence. 4. Unchanging retroperitoneal adenopathy. This should be further evaluated to exclude any possibility of a neoplastic or lymphomatous type process. 2. MRCP - IMPRESSION: 1. Overall similar intra and extra hepatic bile duct dilatation as well as mild dilatation of the main pancreatic duct as described above. No filling defects seen within the common bile duct or main pancreatic duct. 2. Progression of the diffuse gallbladder wall thickening/edema. This could be due to hepatitis or pancreatitis. Cholecystitis is considered less likely given the appearance. 3. No gallstones identified. 4. Trace edema surrounding the second portion of the duodenum which has improved. This is consistent with a resolving pancreatitis. 5. Persistent retroperitoneal lymphadenopathy. A neoplastic process remains the diagnosis of exclusion. 3. ERCP - Danial Jefferson MD - The major papilla appeared normal. - An irregularity was found in the pancreatic duct in the body of the pancreas - A mild biliary stricture was found. The stricture was indeterminate. - A sphincterotomy was performed. - The biliary tree was swept and mucus was found. - 4. Endoscopic ultrasound - Vadim Giron MD - Normal esophagus. - Normal stomach. - Normal examined duodenum. - There was no sign of significant pathology in the esophagus. - Endosonographic images of the stomach were unremarkable. - There was no sign of significant pathology in the examined duodenum. - There was no sign of significant pathology in the ampulla. - Hyperechoic material suggestive of air was visualized in the common bile duct and in the bifurcation of the common hepatic duct. - A few possible stones vs air shadowing stones were visualized endosonographically in the gallbladder. - There was no evidence of significant pathology in the visualized portion of the liver. - Pancreatic parenchymal abnormalities consisting of hyperechoic strands were noted in the entire pancreas. - There was no sign of significant pathology in the main pancreatic duct. - A few enlarged lymph nodes were visualized in the upper-abdominal periaortic region. Fine needle aspiration performed. 5. HIDA scan - IMPRESSION: 1. No evidence of cystic or common bile ductal obstruction or acute cholecystitis. 2. Delayed filling of the gallbladder after the administration of morphine may reflect chronic cholecystitis. 3. Mild enterogastric reflux. 6. echocardiogram - * There is no evidence of a mass or vegetation. This does not rule out endocarditis. * There is borderline concentric left ventricular hypertrophy. * Left ventricular systolic function is normal. * Grade I diastolic dysfunction, (abnormal relaxation pattern). * The left atrium is mildly dilated. 7. Laparoscopic cholecystectomy, umbilical hernia repair, and lymph node biopsy - Dr. Afshin Montgomery Consultations: gastroenterology - Vadim Giron MD / Danial Jefferson MD general surgery - Afshin Montgomery MD infectious disease - Melanie Pardo, Medication Reconciliation New Medications: Amoxicillin & Pot Clavulanate (Augmentin 875-125 mg) 1 Tab Tab 875 MG PO BID for 8 Days, #16 TAB 0 Refills Hydrocodone/Acetaminophen 5MG/325MG ([place]ster 5MG/325MG) Tab 1-2 TABLET PO Q6H PRN for Pain for 3 Days, #30 TAB Continued Medications: Amlodipine (Norvasc) 10 Mg Tab 10 MG PO DAILY, TAB Aspirin (Aspirin Ec) 81 Mg Tab 81 MG PO DAILY Cholecalciferol (Vitamin D3) Unknown Strength Tab 1 TAB PO DAILY for 90 Days, TAB 3 Refills Folic Acid (Folic Acid) 1 Mg Tab 1 MG PO QAM for 30 Days, #30 TAB Omeprazole (Prilosec) 40 Mg Cap 40 MG PO DAILY, CAP Thiamine HCl (Vitamin B-1) 100 Mg Tab 100 MG PO QAM for 30 Days, #30 TAB Valsartan (Diovan) 160 Mg Tab 160 MG PO DAILY, TAB Discharge Exam Physical Exam: General Appearance: no apparent distress Eyes: sclerae normal ENT: pharynx normal Neck: no JVD Respiratory/Chest: lungs clear, no respiratory distress, no accessory muscle use, + decreased breath sounds (bases) Cardiovascular: regular rate, rhythm, no gallop, no murmur, normal peripheral pulses Abdomen / GI: normal bowel sounds, no organomegaly, + tenderness (incisional ), + distended (mild), + pertinent finding (multiple dressings abdominal wall; drain in place with serosanguinous drainage, right abdomen) Extremities: no pedal edema Neurologic/Psychiatric: alert, oriented x 3 Skin: normal color, warm/dry, no rash Hospital Course HISTORY OF PRESENT ILLNESS: Mr. Gasca is a 67 y/o male with PMHx of HTN, GERD, Prostate CA, and ETOH use ( quit x 2 weeks) who presents to the ED complaining of abdominal pain. Patient was recently admitted this month for pancreatitis which questioned ETOH involvement vs biliary. Clinically pancreatitis resolved however LFTs/Bilirubin and Lipase remained elevated but were trending down. He was pain free for a few days prior to that discharge. He reports some mild mid-abdominal pain on Saturday that easily resolved. Around 299 today, he woke up to severe stabbing pain that expands from the LUQ to RUQ and into his R back. He states the pain was a 10/10 and reported to the ED. Pain has a waxing and waning quality but does not completely resolve. Reporting this pain was worse than his pancreatitis previously however this time he is not having N/V or fever/chills. No urinary symptoms and last BM was yesterday without melena/hematochezia. He reports that he has been compliant with a low-fat diet and his has been enforcing this. He has not had ETOH since before his first pancreatitis attack approx. 2 weeks ago. HOSPITAL COURSE: At time of admission the patient was given a working diagnosis of acute pancreatitis suspected to be from a biliary tract cause. Within about 24 hours of admission the patient developed fever, blood cultures were drawn, and broad-spectrum IV antibiotics were initiated. The blood cultures were ultimately positive for streptococcus salivarius. During this same time period the patient's LFTs worsened. Despite MRCP showing no evidence of choledocholithiasis there was strong suspicion that the patient, in light of his positive blood cultures, had developed cholangitis. As a result , on 08/16/17, Dr. Danial Jefferson performed ERCP. During that procedure the biliary tree was swept but no common bile duct stones were found/extracted. A biliary stricture was seen, however. Dr. Jefferson placed a CBD stent at that time. Following the 08/16/17 ERCP the patient's LFTs did indeed improve and his GI symptoms also improved. Lipase continued to trend downward. However, due to strong suspicion of cholecystitis and to further characterize the patient's lymphadenopathy seen on CT, the patient underwent HIDA scan and endoscopic ultrasound on 08/19/17. HIDA scan was concerning for chronic cholecystitis. Endoscopic ultrasound, performed by Dr. Vadim Giron, showed possible gallstones, gall bladder wall thickening, and a fine needle aspirate was taken of one of the retroperitoneal lymph nodes. After considerable discussion between GI and general surgery it was felt best to perform laparoscopic cholecystectomy. Dr. Montgomery took the patient to the OR on 08/21/17 and grossly the gall bladder was felt to be both acutely and chronically ill. He performed an uncomplicated laparoscopic cholecystectomy, umbilical hernia repair, and biopsied one of the retroperitoneal lymph nodes. Dr. Giron's fine needle biospy of a lymph node returned benign; Dr. Montgomery's lymph node biopsy was pending at time of discharge. It is hoped that the intra-abdominal lymphadenopathy was simply reactive to the recent pancreatitis and biliary tract disease. Post-operatively the patient did well with minimal incisional tenderness, was able to tolerate a diet without nausea/emesis, and was passing flatus prior to discharge. LFTs were nearly normal by the time of discharge. The patient will discharge home with his gall bladder fossa drain in place; he was instructed to drain it 2-3 times each day until time of surgical follow-up. He will also complete a course of augmentin twice daily for his streptococcal bacteremia/septicemia (total course 14 days). Of note - echocardiogram was negative for valvular vegetations. At discharge the patient will follow-up with Dr. Montgomery, Dr. Giron, and Dr. Carlos Bojorquez. Total Time Spent: Greater than 30 minutes This includes examination of the patient, discharge planning, medication reconciliation, and communication with other providers. Discharge Instructions Please refer to the electronic Patient Visit Report (Discharge Instructions) for additional information. Follow-Up 1. Dr. Afshin Montgomery - SaturdayAugust 26 at at 11:[address] Carlos Bojorquez - [facility] - SaturdaySeptember 02 at 11:[address] Vadim Giron - Gastroenterology - September 05 at 10:20 am Additional Copies To Carlos Bojorquez M.D.; Afshin Montgomery M.D.; Vadim Giron M.D.
[2017-09-18] MEDS ORDERED: VITAMIN C PO (08:40)
[2017-09-18] MEDS ORDERED: CHOL1000 PO (08:40)
[2017-09-18] MEDS ORDERED: NICO7DIS7 TD (08:41)
== END 2017-08-22 16:23 | disposition home or self-care (01) | DRG 417 ==
LOC: C.EDB 07:28 → C.MSW 09:59 → ENRESERV 10:22 → OBSVTOIN 21:34
PROVIDERS: ADMIT Internal Medicine; ATTEND Internal Medicine
PROC: 0F798DZ Dilation of Common Bile Duct with Intraluminal Device, Via Natural or Artificial Opening Endoscopic (ICD-10-PCS; 2017-08-16)
PROC: 0F7D8ZZ Dilation of Pancreatic Duct, Via Natural or Artificial Opening Endoscopic (ICD-10-PCS; 2017-08-16)
PROC: 0WQF0ZZ Repair Abdominal Wall, Open Approach (ICD-10-PCS; principal; 2017-08-21 07:00)
PROC: 0FT44ZZ Resection of Gallbladder, Percutaneous Endoscopic Approach (ICD-10-PCS; principal; 2017-08-21 07:00)
PROC: 07BB4ZX Excision of Mesenteric Lymphatic, Percutaneous Endoscopic Approach, Diagnostic (ICD-10-PCS; principal; 2017-08-21 07:00)
DX: K85.10 Biliary acute pancreatitis without necrosis or infection (principal); A40.8 Other streptococcal sepsis; K80.13 Calculus of gallbladder with acute and chronic cholecystitis with obstruction; K83.0 Cholangitis; K82.8 Other specified diseases of gallbladder; K42.9 Umbilical hernia without obstruction or gangrene; R59.0 Localized enlarged lymph nodes; R94.5 Abnormal results of liver function studies; K59.00 Constipation, unspecified; I10 Essential (primary) hypertension; K21.9 Gastro-esophageal reflux disease without esophagitis; F10.11 Alcohol abuse, in remission; E66.9 Obesity, unspecified; Z68.30 Body mass index [BMI] 30.0-30.9, adult; Z87.891 Personal history of nicotine dependence; Z79.82 Long term (current) use of aspirin; Z79.899 Other long term (current) drug therapy

== ENCOUNTER → 2017-09-02 | Outpatient (CLI) | payer OTHER ==
[~2017-09-02] MED LIST changes: +AMOX875T PO; -NICO21DI35 TD
[2017-09-02 17:39] LABS: BASO % 0.8 %; BASO ABS # 0.05 K/uL (0-0.2); COMPLETE YES; EOS % 5.8 %; HEMATOCRIT 41.3 % (42-52); IG% 0.8 %; LYMPH % 14.9 %; LYMPH ABS # 0.97 K/uL (1.2-3.4); MEAN CELL VOLUME 92.6 fL (80-100); MEAN CORPUSCULAR HEMOGLOBIN 30.9 pg (25-34); MEAN CORPUSCULAR HGB CONC 33.4 g/dl (32-36); MEAN PLATELET VOLUME 10.8 fL (7.4-10.4); MONO % 9.8 %; NEUT % 67.9 %; PLATELET COUNT 306 K/uL (130-400); RED BLOOD COUNT 4.46 M/uL (4.7-6.1)
[2017-09-02 18:26] LABS: ALT/SGPT 80 U/L (12-78); AST/SGOT 43 U/L (15-37); BLOOD UREA NITROGEN 16 mg/dl (7-18); BUN/CREATININE RATIO 18.8 (10-20); CARBON DIOXIDE 26 mmol/L (21-32); CHLORIDE 106 mmol/L (98-107); CREATININE 0.86 mg/dl (0.60-1.40); GLUCOSE 126 mg/dl (70-99); POTASSIUM 3.8 mmol/L (3.5-5.1); SODIUM 139 mmol/L (136-145)
[2017-09-02 18:29] LABS: ALB/GLOB RATIO 0.7 (0.9-2); ALKALINE PHOSPHATASE 188 U/L (45-117)
== END | disposition home or self-care (01) ==
LOC: C.LABPBG 11:40
PROVIDERS: ATTEND Internal Medicine
DX: K85.90 Acute pancreatitis without necrosis or infection, unspecified (principal); R74.8 Abnormal levels of other serum enzymes

== ENCOUNTER 2017-09-19 12:19 | Day surgery (SDC) | payer OTHER ==
[2017-09-18 08:37] VITALS: BMI 29.0
[~2017-09-19] VITALS: Ht 177.8 cm; Wt 93.5 kg
[~2017-09-19 12:19] MED LIST changes: -AMLO-114 PO; +AMLO10TA3 PO; -AMOX875T PO; -FLV1 PO; +LACTATED RINGER'S 1000ML 1,000 ML IV SCH; +NICO7DIS7 TD; -THM100 PO; +VITAMIN C PO
[2017-09-19 12:44] VITALS: BP 176/89; PULSE 63; TEMP 36.4; O2SAT 99; Ht 177.8 cm; Wt 93.5 kg
[2017-09-19] MEDS ORDERED: SODIUM CHLORIDE 0.9% 500ML 500 ML IV ONE (13:26)
--- NOTE | 2017-09-19 13:31 | Endo History and Physical ---
History & Physical Date of Service: Sep 19, 2017. Chief Complaint: gallstone pancreatitis/ ERCP for stent removal and brushing Referring Physician: History of Present Illness gallstone pancreatitis/ ERCP for stent removal and brushing Pt reproted that recently had slight increase of abd discomfort as meals increased. No N/V or fever chills. Discomfort in epigastrium. No ETOH intake Past Surgical History Hx Cardiac Surgery: No Hx Abdominal Surgery: Yes (GB SURG) Hx Post-Op Nausea and Vomiting: No Hx Cancer Surgery: Yes (PROSTATE BX) Hx Thoracic Surgery: No Hx Orthopedic: No Hx Urinary Tract Surgery: No Social History Smoking Status: Never Smoker Hx Substance Use: No Hx Alcohol Use: No Allergies Coded Allergies: No Known Allergies (Unverified , 09/19/17) Current Medications Reported Home Medications Medications Dose Route/Sig Max Daily Dose Days Date Category Nicoderm Cq 7 Mg Patch (Nicotine) 7 Mg/24 Hr Dis 7 Mg TD DAILY 09/18/17 Reported Vitamin D3 (Cholecalciferol) 1,000 Unit Tab 1 Tab PO QAM 90 09/18/17 Reported [Vitamin C] 1 Tab PO QAM 09/18/17 Reported Diovan (Valsartan) 160 Mg Tab 160 Mg PO QAM 08/03/17 Reported Prilosec (Omeprazole) 40 Mg Cap 40 Mg PO QAM 08/03/17 Reported Aspirin Ec (Aspirin) 81 Mg Tab 81 Mg PO QAM 08/03/17 Reported Norvasc (Amlodipine Besylate) 10 Mg Tab 10 Mg PO QAM 08/03/17 Reported Vital Signs Weight (Kilograms): 93.50 Height (Feet): 5 Height (Inches): 10 Date Time Temp Pulse Resp B/P (MAP) Pulse Ox O2 Delivery O2 Flow Rate FiO2 09/19/17 12:44 36.4 63 20 176/89 (118) 99 Room Air Physical Exam General Appearance: WD/WN, no apparent distress Respiratory/Chest: Auscultation: breath sounds normal Cardiovascular: Heart Auscultation: RRR Abdomen: Bowel Sounds: normal Inspection & Palpation: soft, non-distended, no tenderness, guarding & rebound Assessment and Plan 1) ERCP with repeat cytology brushing risk/benefit /alternative d/w pt including 5% risk pancreatitis will obtain preprocedure hepatic panel and lipase
[2017-09-19 14:09] LABS: ALBUMIN 3.4 gm/dl (3.4-5.0); TOTAL PROTEIN 7.2 gm/dl (6.4-8.2)
[2017-09-19] MEDS ORDERED: DEXAMETHASONE SOD INJ 4 MG/ML VIAL ONE (14:50)
[2017-09-19] MEDS ORDERED: LIDOCAINE HCL 2% 2 ML VIAL (20MG/ML) ONE (14:50)
[2017-09-19] MEDS ORDERED: PROPOFOL IV EMULSION 10 MG/ML 20 ML VIAL IV ONE (14:50)
[2017-09-19] MEDS ORDERED: ONDANSETRON INJ 2 MG/ML 2 ML VIAL ONE (14:50)
[2017-09-19] MEDS ORDERED: MIDAZOLAM HCL 1 MG/ML 2ML VIAL ONE (14:51)
[2017-09-19] MEDS ORDERED: FENTANYL CITRATE INJ 50 MCG/1 ML 2 ML VIAL ONE (14:51)
[2017-09-19] MEDS ORDERED: FENTANYL CITRATE INJ 50 MCG/1 ML 2 ML VIAL IV PRN (15:30)
[2017-09-19] MEDS ORDERED: ATROPINE SULFATE 0.1 MG/ML 5ML SYR IV PRN (15:30)
[2017-09-19] MEDS ORDERED: LABETALOL HCL IV 5 MG/ML 20ML IV PRN (15:30)
[2017-09-19] MEDS ORDERED: ONDANSETRON INJ 2 MG/ML 2 ML VIAL IV PRN (15:30)
[2017-09-19] MEDS ORDERED: ROCURONIUM BROMIDE 10 MG/ML 5 ML VIAL IV ONE (15:33)
[2017-09-19] MEDS ORDERED: NEOSTIGMINE METHYLSULFATE 5 MG/5 ML SYR ONE (15:34)
[2017-09-19] MEDS ORDERED: GLYCOPYRROLATE INJ 0.2 MG/ML VIAL ONE (15:34)
--- NOTE | 2017-09-19 15:55 | DIAGNOSTIC IMAGING REPORT ---
ERCP BILIARY DUCTAL CLINICAL HISTORY: EXPLORATION DUCTS COMPARISON STUDY: None FLUOROSCOPY TIME: 4 minutes 32 seconds. FINDINGS: Initial retrograde opacification of the common duct shows several filling defects distally. This is followed by balloon insufflation and sweeping of the common duct. Final image shows no definite residual filling defects. IMPRESSION: Successful balloon extraction of choledocholithiasis. The above report was generated using voice recognition software. It may contain grammatical, syntax or spelling errors. Electronically signed by: Jorge Bahena M.D. 09/19/2017 3:54 PM Dictated Date/Time: 09/19/2017 3:53 PM
--- NOTE | 2017-09-19 16:00 | Anesthesiology Progress Note ---
Anesthesia Post Op Note Date & Time Sep 19, 2017 at 16:00 Vital Signs Pain Intensity: 0 Vital Signs Past 12 Hours Date Time Temp Pulse Resp B/P (MAP) Pulse Ox O2 Delivery O2 Flow Rate FiO2 09/19/17 15:52 36.1 74 18 147/79 100 Oxymask 10 09/19/17 12:44 36.4 63 20 176/89 (118) 99 Room Air Notes Mental Status: alert / awake / arousable, participated in evaluation Pt Amnestic to Procedure: Yes Nausea / Vomiting: adequately controlled Pain: adequately controlled Airway Patency, RR, SpO2: stable & adequate BP & HR: stable & adequate Hydration State: stable & adequate Anesthetic Complications: no major complications apparent
--- NOTE | 2017-09-19 16:02 | Discharge Instructions ---
Endoscopy Patient Instructions Date / Procedure(s) Performed Sep 19, 2017. ERCP Allergy Information Coded Allergies: No Known Allergies (Unverified , 09/19/17) Discharge Date / Findings Sep 19, 2017. CBD stone stent removed samples taken Medication Instructions Restart Stopped Medication(s): Reported Home Medications Medications Dose Route/Sig Max Daily Dose Days Date Category Nicoderm Cq 7 Mg Patch (Nicotine) 7 Mg/24 Hr Dis 7 Mg TD DAILY 09/18/17 Reported Vitamin D3 (Cholecalciferol) 1,000 Unit Tab 1 Tab PO QAM 90 09/18/17 Reported [Vitamin C] 1 Tab PO QAM 09/18/17 Reported Diovan (Valsartan) 160 Mg Tab 160 Mg PO QAM 08/03/17 Reported Prilosec (Omeprazole) 40 Mg Cap 40 Mg PO QAM 08/03/17 Reported Aspirin Ec (Aspirin) 81 Mg Tab 81 Mg PO QAM 08/03/17 Reported Norvasc (Amlodipine Besylate) 10 Mg Tab 10 Mg PO QAM 08/03/17 Reported Reported Home Medications Medications Dose Route/Sig Max Daily Dose Days Date Category Nicoderm Cq 7 Mg Patch (Nicotine) 7 Mg/24 Hr Dis 7 Mg TD DAILY 09/18/17 Reported Vitamin D3 (Cholecalciferol) 1,000 Unit Tab 1 Tab PO QAM 90 09/18/17 Reported [Vitamin C] 1 Tab PO QAM 09/18/17 Reported Diovan (Valsartan) 160 Mg Tab 160 Mg PO QAM 08/03/17 Reported Prilosec (Omeprazole) 40 Mg Cap 40 Mg PO QAM 08/03/17 Reported Aspirin Ec (Aspirin) 81 Mg Tab 81 Mg PO QAM 08/03/17 Reported Norvasc (Amlodipine Besylate) 10 Mg Tab 10 Mg PO QAM 08/03/17 Reported Provider Instructions Activity Restrictions - No exercising or heavy lifting for 24 hours. - Do not drink alcohol the day of the procedure. - Do not drive a car or operate machinery until the day after the procedure. - Do not make any important decisions or sign important papers in 24 hours after the procedure. Following Day: - Return to full activity which may include returning to work/school. Diet Start your diet with liquids and light foods (jello, soup, juice, toast). Then eat your usual diet if not nauseated. Treatment For Common After Affects For mild abdominal pain, bloating, or excessive gas: - Rest - Eat lightly - Lie on right side Follow-Up Information Follow-up with as scheduled Anesthesia Information What You Should Know You have had a procedure that required some medicine to reduce anxiety and discomfort. This treatment is called moderate sedation. After receiving the treatment, you may be sleepy, but you will be able to breathe on your own. The effects of the treatment may last for several hours. Follow these instructions along with Activity/Diet recommendations noted above: * Do NOT do anything where dizziness or clumsiness would be dangerous. * Rest quietly at home today, then you can be up and about tomorrow. * Have a responsible person stay with you the rest of today. * You may have had an I.V. today. If so, you may take the dressing off later today. Recommendations Call your doctor if: * Trouble breathing * Continuous vomiting for more than 24 hours * Temperature above 101 degrees * Severe abdominal pain or bloating * Pain not relieved by pain medicine ordered * There is increased drainage or redness from any incision * A large amount of rectal bleeding greater than 2-3 tablespoons. (If you had a polyp/s removed or have hemorrhoids, a small amount of blood - from the rectum is to be expected.) * You have any unanswered questions or concerns. IN THE EVENT OF A SERIOUS EMERGENCY, GO TO THE NEAREST EMERGENCY ROOM Your discharge instructions were prepared by provider Vadim Giron. Patient Instructions Signature Page Gonsalo Gasca Patient (or Guardian) Signature/Date: I have read and understand the instructions given to me by my caregivers. Caregiver/RN/Doctor Signature/Date: The above-named patient and/or guardian has received patient instructions on this date. + Original Patient Signature Page (only) stays with chart. Please make copy for patient.
[2017-09-19 16:40] VITALS: BP 162/71; PULSE 58; TEMP 36.6; O2SAT 96
[2017-09-19 17:10] VITALS: BP 138/72; PULSE 58; TEMP 36.6; O2SAT 96
--- NOTE | 2017-09-19 18:12 | GI REPORT ---
Procedure Date: 09/19/2017 3:11 PM Procedure: ERCP Indications: Biliary stent removal Medicines: General Anesthesia Complications: No immediate complications. Estimated Blood Loss: Estimated blood loss: none. Procedure: Pre-Anesthesia Assessment: - Prior to the procedure, a History and Physical was performed, and patient medications and allergies were reviewed. The patient's tolerance of previous anesthesia was also reviewed. The risks and benefits of the procedure and the sedation options and risks were discussed with the patient. All questions were answered, and informed consent was obtained. Prior Anticoagulants: The patient has taken no previous anticoagulant or antiplatelet agents. ASA Grade Assessment: II - A patient with mild systemic disease. After reviewing the risks and benefits, the patient was deemed in satisfactory condition to undergo the procedure. After obtaining informed consent, the scope was passed under direct vision. Throughout the procedure, the patient's blood pressure, pulse, and oxygen saturations were monitored continuously. The Scope was introduced through the mouth, and advanced to the duodenum and used to inject contrast into the bile duct. The ERCP was accomplished without difficulty. The patient tolerated the procedure well. Findings: A biliary stent was visible on the template layout worker film. The scope was advanced to a normal major papilla in the descending duodenum. Examination of the pharynx, larynx and associated structures, and upper GI tract was normal. A biliary sphincterotomy had been performed. The sphincterotomy appeared open. One temporary plastic biliary stent originating in the biliary tree was emerging from the major papilla. The stent was visibly patent. One stent was removed from the biliary tree using a snare and sent for cytology. A straight 0.035 inch Tracer [employer] Direct wire was passed into the biliary tree. The 8.5 mm balloon and 11.5 mm balloon were passed over the guidewire and the bile duct was then deeply cannulated. Contrast was injected. I personally interpreted the bile duct images. Ductal flow of contrast was adequate. Image quality was adequate. Contrast extended to the entire biliary tree. Opacification of the entire biliary tree was successful. The maximum diameter of the ducts was 7 mm. The lower third of the main bile duct contained one stone, which was 7 mm in diameter. The lower third of the main bile duct contained a single mild localized stenosis 20 mm in length. The biliary tree was swept with an 8.5 mm balloon and 11.5 mm balloon starting at the bifurcation. All stones were removed. Cells for cytology were obtained by brushing the lower third of the main bile duct. Impression: - Prior biliary sphincterotomy appeared open. - One visibly patent stent from the biliary tree was seen in the major papilla. - A mild localized biliary stricture was found. The stricture was benign appearing. - Choledocholithiasis was found. Complete removal was accomplished by balloon extraction. - One stent was removed from the biliary tree. - The biliary tree was swept. - The PD was neither instrumented nor opacified. No stents replaced. Final occlusion cholangiogram without persisting mobile filling defects. Recommendation: - Discharge patient to home (ambulatory). - Advance diet as tolerated. - Await cytology results. - Return to GI clinic as previously scheduled. - Depending on cytology and clinical progress, may consider cross sectional imaging in 2-3 months to assess pancreas and biliary systems, MD Vadim Sanz MD 09/19/2017 6:12:29 PM This report has been signed electronically. Note Initiated On: 09/19/2017 3:11 PM I attest to the content of the Intraoperative Record and orders documented therein, exceptions below
== END 2017-09-19 17:40 | disposition home or self-care (01) ==
LOC: C.ACU 12:19
PROVIDERS: ATTEND Internal Medicine Gastroenterology
DX: Z46.89 Encounter for fitting and adjustment of other specified devices (principal); K80.51 Calculus of bile duct without cholangitis or cholecystitis with obstruction; I10 Essential (primary) hypertension; E78.5 Hyperlipidemia, unspecified; D64.9 Anemia, unspecified; E66.9 Obesity, unspecified; Z68.30 Body mass index [BMI] 30.0-30.9, adult; Z85.46 Personal history of malignant neoplasm of prostate; Z79.82 Long term (current) use of aspirin; Z79.899 Other long term (current) drug therapy; Z87.891 Personal history of nicotine dependence

== ENCOUNTER → 2017-10-14 | Outpatient (CLI) | payer OTHER ==
[~2017-10-14] MED LIST changes: +AMLO-114 PO; -AMLO10TA3 PO; -LACTATED RINGER'S 1000ML 1,000 ML IV SCH
[2017-10-14 12:41] LABS: ALBUMIN 3.4 gm/dl (3.4-5.0); TOTAL PROTEIN 7.7 gm/dl (6.4-8.2)
== END | disposition home or self-care (01) ==
LOC: C.LABPBG 07:56
PROVIDERS: ATTEND Physician Assistant
DX: R74.8 Abnormal levels of other serum enzymes (principal)

== ENCOUNTER → 2018-01-06 | Outpatient (CLI) | payer OTHER ==
--- NOTE | 2018-01-06 11:42 | DIAGNOSTIC IMAGING REPORT ---
ABDOMEN AND PELVIS CT WITH ORAL CONTRAST CT DOSE: 961.73 mGycm HISTORY: K86.1 Pancreatitis, [id number] TECHNIQUE: Multiaxial CT images of the abdomen and pelvis were performed following the use of oral contrast. A dose lowering technique was utilized adhering to the principles of ALARA. COMPARISON STUDY: Abdomen and pelvis CT 08/14/2017. FINDINGS: Stable 3 mm nodule within the left lower lobe. Old left-sided rib fractures are again noted. Hepatic steatosis. Interval cholecystectomy. Small amount pneumobilia. Minimal inflammatory change surrounding the second portion of the duodenum and pancreatic head. This suggests acute pancreatitis. This has slightly improved. Normal caliber common bile duct. The spleen and left adrenal gland are unremarkable. Mild nodular thickening within the right adrenal gland, unchanged. No renal stones or hydronephrosis. Left periaortic lymphadenopathy remains unchanged. The dominant lymph node measures 3.1 x 2.5 cm. Mild bladder wall thickening. This is stable and may be due to the mildly enlarged prostate gland. Colonic diverticulosis. Normal appendix. Focal intussusception within a loop of small bowel within the left midabdomen best seen on image 266. Proximal to the intussusception the jejunum is focally thickened. This is best seen on image 236. This is likely transient as there is no evidence for a small bowel obstruction. IMPRESSION: 1. Minimal inflammatory change surrounding the second portion of the duodenum pancreatic head. This likely represents acute pancreatitis. This is slightly improved compared the prior study. 2. Interval cholecystectomy. The common bile duct is normal in caliber. Small amount of pneumobilia is present. 3. Focal intussusception within a loop of small bowel within the left midabdomen consistent with a [place] of. Proximal to the intussusception the jejunum is focally thickened. This is likely transient as there is no evidence for a small bowel obstruction. However, given the thickening of the small bowel at this location, a follow-up nonemergent small bowel follow-through is recommended to exclude the possibility of a small bowel mass. 4. Persistent left periaortic lymphadenopathy. Electronically signed by: Eder Vitale M.D. 01/06/2018 11:40 AM Dictated Date/Time: 01/06/2018 11:29 AM
== END | disposition home or self-care (01) ==
LOC: C.CTS 09:08
PROVIDERS: ATTEND Internal Medicine
DX: K63.89 Other specified diseases of intestine (principal); K86.1 Other chronic pancreatitis; Z90.49 Acquired absence of other specified parts of digestive tract

== ENCOUNTER → 2018-01-09 | Outpatient (CLI) | payer OTHER ==
--- NOTE | 2018-01-09 10:42 | DIAGNOSTIC IMAGING REPORT ---
GI W/AIR SMALL BOWEL ROUTINE CLINICAL HISTORY: Z87.19 History of [id number] Pancreatitis, recurrent COMPARISON STUDY: Abdomen and pelvis CT 01/06/2018. FLUOROSCOPY TIME: 4.6 minutes. 32 fluoroscopic spot and overhead images were obtained.. FINDINGS: Converting Technician image demonstrates multiple pelvic phleboliths. No dilated loops of bowel identified. No evidence for bowel obstruction. No filling defects identified within the small bowel. No evidence for intussusception at this time. There is focal area of fold thickening within the second portion of the duodenum. This is likely related to the patient's known pancreatitis. The esophagus is normal in course and caliber. No hiatus hernia. No gastroesophageal reflux. No gastric ulcerations. The duodenal bulb is normally distensible. IMPRESSION: 1. Focal area of thickening within the second portion of the duodenum. This is likely related to the patient's known pancreatitis. 2. No evidence for intussusception, small bowel obstruction, or small bowel mass on the provided images. Electronically signed by: Eder Vitale M.D. 01/09/2018 10:40 AM Dictated Date/Time: 01/09/2018 10:35 AM
== END | disposition home or self-care (01) ==
LOC: C.RAD 08:05
PROVIDERS: ATTEND Internal Medicine
DX: C61 Malignant neoplasm of prostate (principal); Z87.19 Personal history of other diseases of the digestive system; K86.1 Other chronic pancreatitis

== ENCOUNTER 2022-06-12 05:24 | Observation (INO) ==
--- NOTE | 2022-05-18 09:49 | PAT Medication Instructions ---
Medication Instructions Date of Service May 18, 2022 Home Medications Medication Instructions Recorded amlodipine 10 mg tablet 10 mg PO QAM #90 tabs 05/08/21 cholestyramine (with sugar) 4 gram See Rx Instructions .Route 05/09/21 powder for susp in a packet .COMPLEX #180 packets bupropion HCl 150 mg tablet,12 hr 150 mg PO BID #180 ea 08/14/21 sustained-release omeprazole 40 mg capsule,delayed See Rx Instructions .Route 11/20/21 release .COMPLEX #90 caps sertraline 100 mg tablet See Rx Instructions .Route 02/08/22 .COMPLEX #180 tabs ascorbic acid (vitamin C) 500 mg capsule 500 mg PO QAM aspirin 81 mg tablet,delayed release (Adult Aspirin Regimen) 81 mg PO QAM cholecalciferol (vitamin D3) 25 mcg (1,000 unit) capsule 1,000 units PO QAM omega-3 fatty acids 1,000 mg PO QAM amlodipine 10 mg tablet 10 mg PO QAM cholestyramine (with sugar) 4 gram powder for susp in a packet See Rx Instructions .Route .COMPLEX bupropion HCl 150 mg tablet,12 hr sustained-release 150 mg PO BID omeprazole 40 mg capsule,delayed release See Rx Instructions .Route .COMPLEX sertraline 100 mg tablet See Rx Instructions .Route .COMPLEX rosuvastatin 5 mg tablet (Crestor) 5 mg PO QAM valsartan 160 mg tablet 160 mg PO QAM Continue as directed omeprazole 40 mg capsule,delayed release See Rx Instructions .Route .COMPLEX ASK your prescriber and surgeon aspirin 81 mg tablet,delayed release (Adult Aspirin Regimen) 81 mg PO QAM STOP taking 2 weeks before surgery (or as soon as possible if surgery is within 2 weeks) omega-3 fatty acids 1,000 mg PO QAM STOP taking 48 hours before surgery cholestyramine (with sugar) 4 gram powder for susp in a packet See Rx Instructions .Route .COMPLEX DO NOT take the morning of surgery ascorbic acid (vitamin C) 500 mg capsule 500 mg PO QAM cholecalciferol (vitamin D3) 25 mcg (1,000 unit) capsule 1,000 units PO QAM valsartan 160 mg tablet 160 mg PO QAM Take morning of surgery With a small sip of water, OTHERWISE NOTHING TO EAT OR DRINK AFTER MIDNIGHT: amlodipine 10 mg tablet 10 mg PO QAM bupropion HCl 150 mg tablet,12 hr sustained-release 150 mg PO BID rosuvastatin 5 mg tablet (Crestor) 5 mg PO QAM Take evening before surgery bupropion HCl 150 mg tablet,12 hr sustained-release 150 mg PO BID sertraline 100 mg tablet See Rx Instructions .Route .COMPLEX Other Notes If you have any questions please call us at [phone] or [phone] or [phone] or [phone]
--- NOTE | 2022-05-30 08:17 | Anesthesiology Consultation ---
Date of Service May 30, 2022 Assessment & Plan (1) Encounter for pre-operative examination: - COVID screening: Per assessment on 05/30: No known COVID-19 positive contacts or current COVID-19 related symptoms. Travel screen- returned from travel to [place] 05/18. Patient vaccinated. At surgeon discretion if preop Covid testing being done. - S/P Right TSA (08/12/20): Grade view 1, MAC#3, ETT 7.5 + PNB at [facility]. No issues noted per post-op anesthesia progress note. Chart Review Chart Review: Acceptable Risk for Surgery and Patient seen in Pre Admission Test ing Teaching & Discussion Pre-Anesthesia Teaching/Discussion Notes: Instructed NPO after midnight before surgery,except medications with 15 cc of water. Medication instructions provided according to the PAT guidelines. History Surgery Operation Date: 06/12/22 07:30 Proposed Procedures p Robotic assisted Laparoscopic Radical Retropubic Prostatectomy, Possible Open Possible Pelvic Lymph Node Dissection, Possible Surpapubic Tube Placement - Cleveland Mars MD Height/Weight Height: 5 ft 10 in Weight: 91.1 kg Allergies Allergy/AdvReac Type Severity Reaction Status Date / Time amlodipine [From Lotrel] AdvReac Unknown Cough Verified 05/16/22 15:04 atorvastatin AdvReac Unknown myalgia Verified 05/16/22 15:04 benazepril [From Lotrel] AdvReac Unknown Cough Verified 05/16/22 15:04 pravastatin [From Pravachol] AdvReac Unknown myalgia Verified 05/16/22 15:04 telmisartan [From Micardis] AdvReac Unknown Headache Verified 05/16/22 15:04 Medications Home Medications Medication Instructions Recorded Confirmed Last Taken ascorbic acid (vitamin C) 500 mg 500 mg PO QAM 05/14/19 05/16/22 08/11/20 07:30 capsule aspirin 81 mg tablet,delayed 81 mg PO QAM 05/14/19 05/16/22 08/11/20 07:30 release (Adult Aspirin Regimen) cholecalciferol (vitamin D3) 25 1,000 units PO QAM 05/14/19 05/16/22 1 Month Ago mcg (1,000 unit) capsule ~07/12/20 omega-3 fatty acids 1,000 mg PO QAM 06/27/20 05/16/22 2 Weeks Ago ~07/29/20 cholestyramine (with sugar) 4 gram See Rx Instructions .Route 05/09/21 05/16/22 Unknown powder for susp in a packet .COMPLEX #180 packets bupropion HCl 150 mg tablet,12 hr 150 mg PO BID #180 ea 08/14/21 05/16/22 Unknown sustained-release omeprazole 40 mg capsule,delayed See Rx Instructions .Route 11/20/21 05/16/22 Unknown release .COMPLEX #90 caps sertraline 100 mg tablet See Rx Instructions .Route 02/08/22 05/16/22 Unknown .COMPLEX #180 tabs valsartan 160 mg tablet 160 mg PO QAM 05/16/22 05/16/22 Unknown rosuvastatin 5 mg tablet (Crestor) 5 mg PO QAM #90 tabs 05/23/22 Unknown amlodipine 10 mg tablet 10 mg PO QAM #90 tabs 05/29/22 Unknown Past Medical History Medical History Anxiety Stable and controlled Cancer Prostate GERD (gastroesophageal reflux disease) Stable and controlled History of COVID-19 Dx 08/2021 Symptoms at time: fever, aches > resolved Hx of pancreatitis + blocked bile duct (2017), since resolved Hyperlipidemia Hypertension Impaired fasting glucose Per records, pt unaware Osteoarthritis Paresthesia of both feet Retroperitoneal lymphadenopathy Previously under observation by Dr Linton ("discharged") Exercise / Class Metabolic Activity II 4-5 Yardwork/Stairs/Walk up hill (one FS (no CP, no SOB)) Past Family History Family History Father Myocardial infarction Diabetes Hypertension Prostate cancer Mother Coronary heart disease Diabetes Stroke syndrome Denies family history of Ovarian cancer Breast cancer Colorectal cancer Past Surgical History Surgical History H/O colonoscopy History of esophagogastroduodenoscopy (EGD) S/P cholecystectomy Status post replacement of right shoulder joint Right TSA (08/12/20): Grade view 1, MAC#3, ETT 7.5 + PNB at [facility]. No issues noted per post-op anesthesia progress note. Past Anesthesia History No Hx of Anesthesia Complications and No Family Hx of Anesthesia Complications History of PONV No Hx of PONV and No Hx of Motion Sickness Social History Smoking Status: Former smoker Do You Dip or Chew Tobacco: No Smoking End Date: Quit years ago Hx Alcohol Use: No Alcohol Intake Frequency Comment: Hx ETOH abuse per records- no ETOH use since 2017 per pt Hx Substance Use: No Review of Systems Patient denies chest pain, shortness of breath, dyspnea on exertion, fever, chills, cough, wheezing, palpitations. Physical Exam Vital Signs VITALS BP 136/68 P 63 TEMP 98.2 SP02 96%RA RESP 16 PHYSICAL Full cervical extension range of motion. Full TMJ range of motion. TMD 3.5 finger breaths Mallampati Score 3 Dentition: intact Lungs: clear throughout to auscultation Cardiac: regular rate and rhythm, no murmurs noted Spine: normal Carotid arteries: negative bruit Extremities: no edema Lab Results Anesthesia Preop Results Results Anesthesia Widget: WBC 5.04 K/ul (4.8-10.8) 05/30/22 Hgb 13.0 g/dl (14.0-18.0) L 05/30/22 Hct 37.8 % (40.1-51.0) L 05/30/22 Plt 216 K/uL (130-400) 05/30/22 Na 140 mmol/L (136-145) 05/30/22 K 4.0 mmol/L (3.5-5.1) 05/30/22 Cl 108 mmol/L (98-107) H 05/30/22 CO2 25 mmol/L (21-32) 05/30/22 BUN 19 mg/dl (6-23) 05/30/22 Creat 0.95 mg/dl (0.6-1.4) 05/30/22 Glucose Level 134 mg/dl (70-99(Fasting)) H 05/30/22 Urine Color Dark Yellow 05/30/22 Urine Appearance Clear (Clear) 05/30/22 Urine pH 5.5 (4.5-7.5) 05/30/22 Urine Specific [place] 1.019 (1.000-1.030) 05/30/22 Urine Protein Negative (Negative) 05/30/22 Urine Glucose (UA) Negative (Negative) 05/30/22 Urine Ketones Negative (Negative) 05/30/22 Urine Blood Negative (Negative) 05/30/22 Urine Nitrite Negative (Negative) 05/30/22 Urine Bilirubin Negative (Negative) 05/30/22 Urine Urobilinogen Negative (Negative) 05/30/22 Urine Leukocyte Esterase Negative (Negative) 05/30/22 Blood Type O Positive 05/30/22 Antibody Screen NEGATIVE 05/30/22 Testing Electrocardiogram Date: 05/30/22 SR with first degree AVB at 60bpm. unconfirmed report. Chest X-Ray Date: 05/30/22 FINDINGS: Lung volumes are normal. Lungs are clear. There is no pneumothorax or pleural effusion. Cardiac size is normal. Mediastinal contours are normal. There is no evidence for pulmonary edema. Several old left-sided rib fractures are incidentally noted. Right shoulder arthroplasty is noted. IMPRESSION: No acute cardiopulmonary findings. Echocardiogram Date: 08/22/17 EF 60-65%. No RWMA. Mild LAD. Mild TR. Borderline cLVH. Grade I DD. Basal septum is thickened and angulated consistent with sigmoid septum. COVID-19 Risk Screen Screening Information COVID-19 Screen Date: 05/30/22 Exposure 21 Days Family/Household +COVID Last 21 Days: No Exposure 10 Days Any COVID Exposure Last 10 Days: No Symptoms Last 10 Days Experienced COVID Sx Last 10 Days: No + COVID 0-90 Days COVID + in Last 0-90 Days: No
[2022-06-12] MEDS ORDERED: HEPARIN SOD 5,000 UNIT/0.5 ML VIAL SQ SCH (06:00)
[2022-06-12] MEDS ORDERED: LACTATED RINGER'S 1,000 ML IV SCH (06:00)
[2022-06-12] MEDS ORDERED: MIDAZOLAM HCL 1 MG/ML 2ML VIAL ONE (06:18)
[2022-06-12] MEDS ORDERED: fentaNYL citrate 100 MCG/2 ML VIAL ONE (06:18)
[2022-06-12] MEDS ORDERED: LIDOCAINE 2% MPF LOCAL 5 ML VIAL INFIL ONE (06:18)
[2022-06-12] MEDS ORDERED: PROPOFOL IV EMULSION 10 MG/ML 20 ML VIAL IV ONE (06:18)
[2022-06-12] MEDS ORDERED: ROCURONIUM BROMIDE 10 MG/ML 5 ML VIAL IV ONE ×2 (06:19→07:36)
[2022-06-12] MEDS ORDERED: BELLADONNA/OPIUM SUPP 60 MG SUPP PR ONE ×2 (06:34→07:15)
[2022-06-12] MEDS ORDERED: SURGICEL ABSORB HEMOSTAT 2IN X 14IN TOP ONE (06:56)
[2022-06-12] MEDS ORDERED: FLOSEAL HEMOSTATIC MATRIX 10ML TOP ONE (06:56)
--- NOTE | 2022-06-12 07:02 | History & Physical Report ---
Date of Service June 12, 2022 Assessment & Plan (1) Adenocarcinoma of prostate: Plan: risks, benefits, and expectations reviewed move forward with robotic prostatectomy this AM History of Present Illness Primary Care Provider: Carlos Bojorquez MD Prostate cancer - presenting today for robotic prostatectomy Allergies Allergy/AdvReac Type Severity Reaction Status Date / Time amlodipine [From Lotrel] AdvReac Unknown Cough Verified 06/12/22 05:37 atorvastatin AdvReac Unknown myalgia Verified 06/12/22 05:37 benazepril [From Lotrel] AdvReac Unknown Cough Verified 06/12/22 05:37 pravastatin [From Pravachol] AdvReac Unknown myalgia Verified 06/12/22 05:37 telmisartan [From Micardis] AdvReac Unknown Headache Verified 06/12/22 05:37 Home Medications Medication Instructions Recorded Confirmed Type ascorbic acid (vitamin C) 500 mg 500 mg PO QAM 05/14/19 06/12/22 History capsule aspirin 81 mg tablet,delayed 81 mg PO QAM 05/14/19 06/12/22 History release (Adult Aspirin Regimen) cholecalciferol (vitamin D3) 25 1,000 units PO QAM 05/14/19 06/12/22 History mcg (1,000 unit) capsule omega-3 fatty acids 1,000 mg PO QAM 06/27/20 06/12/22 History cholestyramine (with sugar) 4 gram See Rx Instructions .Route 05/09/21 06/12/22 Rx powder for susp in a packet .COMPLEX #180 packets bupropion HCl 150 mg tablet,12 hr 150 mg PO BID #180 ea 08/14/21 06/12/22 Rx sustained-release omeprazole 40 mg capsule,delayed See Rx Instructions .Route 11/20/21 06/12/22 Rx release .COMPLEX #90 caps sertraline 100 mg tablet See Rx Instructions .Route 02/08/22 06/12/22 Rx .COMPLEX #180 tabs valsartan 160 mg tablet 160 mg PO QAM 05/16/22 06/12/22 History rosuvastatin 5 mg tablet (Crestor) 5 mg PO QAM #90 tabs 05/23/22 Rx amlodipine 10 mg tablet 10 mg PO QAM #90 tabs 05/29/22 Rx Past Med/Surg History Medical History Anxiety Stable and controlled Cancer Prostate GERD (gastroesophageal reflux disease) Stable and controlled History of COVID-19 Dx 08/2021 Symptoms at time: fever, aches > resolved Hx of pancreatitis + blocked bile duct (2017), since resolved Hyperlipidemia Hypertension Impaired fasting glucose Per records, pt unaware Osteoarthritis Paresthesia of both feet Retroperitoneal lymphadenopathy Previously under observation by Dr Linton ("discharged") Surgical History H/O colonoscopy History of esophagogastroduodenoscopy (EGD) S/P cholecystectomy Status post replacement of right shoulder joint Right TSA (08/12/20): Grade view 1, MAC#3, ETT 7.5 + PNB at [facility]. No issues noted per post-op anesthesia progress note. Family History Father Myocardial infarction Diabetes Hypertension Prostate cancer Mother Coronary heart disease Diabetes Stroke syndrome Denies family history of Ovarian cancer Breast cancer Colorectal cancer Social History Smoking Status: Former smoker Tobacco Type: Cigarettes Age Quit Using Tobacco: 28; Smoking End Date: Quit years ago; Second Hand Exposure: No; Do You Dip or Chew Tobacco: No; Hx Alcohol Use: No Hx Substance Use: No Preferred Language: Kyrgyz Communication Ability: Effective Visual Impairment: No Limitations Hearing Ability: Hard of Hearing Faucets Assembler Required: No Beliefs That Will Affect Care: None marital status: Current Living Situation: Spouse current occupational status: employed current occupation: dispatcher Other Information That Helps Us Care for You: No Feels Safe at Home: Yes Safety Concerns: Feels Safe At This Time Childhood Exposure to Second-Hand Smoke: Yes Diet Comment: regular caffeine: Yes during the past year weight has: remained stable Dental Care, Regularly: Yes Physical Activity Frequency: Daily Seatbelt Use: always Sunscreen Use: Yes Assistive Devices: Glasses Physical Exam Constitutional: well developed and well nourished Neck: neck nontender Respiratory: normal respiratory effort; no respiratory distress and does not use accessory muscles Cardiovascular: Rate/Rhythm: regular rate Vessels: radial pulses present Extremities: no edema Gastrointestinal (Abdomen): Inspection/Auscultation: abdomen normal to inspection Percussion/Palpation: abdomen soft; abdomen nontender and no guarding Musculoskeletal: Head/Neck/Chest: normocephalic and head atraumatic Extremities: extremities normal to inspection Skin: no rashes and no lesions Trauma: no evidence of skin trauma Neurologic: awake; not obtunded Speech / Cognition: normal speech Motor/Sensory: no tremor Psychiatric: Orientation: alert and oriented x 3 Genitourinary: no CVA tenderness Lymphatic: no lymphadenopathy Results & Data ([facility]) Vital Signs (Past 12 Hours) Vital Signs Temp Pulse Resp BP Pulse Ox O2 Del Method 06/12/22 05:43 36.8 C 61 20 143/67 H 95 Room Air
[2022-06-12] MEDS ORDERED: ONDANSETRON INJ 2 MG/ML 2 ML VIAL IV PRN ×2 (07:05→11:49)
[2022-06-12] MEDS ORDERED: ePHEDrine sulfate 50 MG/ML AMP IV PRN (07:05)
[2022-06-12] MEDS ORDERED: ATROPINE SULFATE 0.1 MG/ML 10ML SYR IV PRN (07:05)
[2022-06-12] MEDS ORDERED: fentaNYL citrate 100 MCG/2 ML VIAL IV PRN (07:05)
[2022-06-12] MEDS ORDERED: BUPIVACAINE 0.5 % 5 MG/1 ML MPF 30ML VIAL ONE (07:07)
[2022-06-12] MEDS ORDERED: DEXAMETHASONE SOD INJ 4 MG/ML VIAL ONE (07:33)
[2022-06-12] MEDS ORDERED: ONDANSETRON INJ 2 MG/ML 2 ML VIAL ONE (07:34)
[2022-06-12] MEDS ORDERED: NEOSTIGMINE METHYLSULFATE 1 MG/ML 10ML VIAL ONE (08:01)
[2022-06-12] MEDS ORDERED: GLYCOPYRROLATE 0.2 MG/ML VIAL ONE (08:01)
[2022-06-12] MEDS ORDERED: HYDROmorphone INJ 2 MG/ML SYR/VIAL ONE (08:19)
--- NOTE | 2022-06-12 11:02 | Operative Report ---
PG Post Operative Report Pre & Post Diagnosis Operation Date: 06/12/22 07:00 Pre-Op Diagnosis: Prostate Cancer Post-Op Diagnosis: Prostate Cancer I identified the patient and participated in the time-out.: Yes Procedure Operation Date: 06/12/22 07:00 Actual Procedures p Robotic Assisted Laparoscopic Radical Retropubic Prostatectomy, Bilateral Pelvic Lymph Node Dissection(Not Applicable) - Cleveland Mars MD Surgeon Cleveland Mars MD Bike Mechanic Karol Madrid Estimated Blood Loss 100 Findings Consistent with Post-Op Diagnosis Specimens 1. Prostate and seminal vesicles 2. Periprostatic fat 3. Left pelvic lymph nodes 4. Right pelvic lymph nodes Description of Procedure The patient was identified in the preoperative holding area, appropriate informed consents were reviewed and completed, and he was transported to the operating suite. Subcutaneous heparin was administered in the pre-operative holding area. Upon arrival in the operating suite, he received appropriate antibiotics and general anesthesia. He was positioned in dorsal lithotomy, a B&O suppository was inserted after digital rectal exam, and he was prepped and draped in standard fashion. A Huber catheter was inserted in the sterile field. A Veress needle was passed per umbilicus with uniform insufflation of the abdomen to 15mmHg. He was placed in steep Trendelenburg position. A periumbilical incision was then made to accommodate a 12mm Visiport with 10mm 0degree laparoscope. Inspection of the abdomen was carried out, and there was no evidence of traumatic entry or injury secondary to the Veress needle. After confirming a clear anterior abdominal wall, ports were subsequently placed in standard robotic prostatectomy fashion without incident. To begin the robotic portion of the case, the left lateral aspect of the sigmoid was mobilized off of the left pelvic side wall to allow the pouch of Sabino to be appropriately visualized. I then made an incision in the pouch of Sabino, overlying the seminal vesicles. Both SVs as well as the ampullae of the vasa were entirely dissected, with the vasa transected 3cm from the prostate. The medial umbilical ligaments were then controlled with bipolar electrocautery just inferior to the umbilicus. Following cauterization, they were divided utilizing monopolar cautery. A peritoneal incision was carried from this location to the medial aspect of the internal inguinal rings bilaterally with care to avoid opening through the ring. This incision was concluded when the vas deferens was reached. Dissection of the bladder and prostate off of the posterior aspect of the pubic arch was completed allowing full visualization of the prostate. The fat overlying the prostate was removed en bloc and passed off the table as a specimen labeled "periprostatic fat". The endopelvic fascia was cleared during this portion of the procedure, and subsequently opened - first on the right and then the left. The incision through the endopelvic fascia began near the prostate-bladder junction and was carried to the apex with extreme care to preserve all lateral levator musculature as well as the periurethral musculature and sphincter complex. I additionally preserved the puboprostatic ligaments. I then controlled the DVC with a 3-0 V-lock suture in overlapping/figure of 8 fashion. The lymph node dissection was then conducted. External iliac vessels were identified on the pelvic side wall. The packet of fat and lymphatic tissue that resides just under the iliac vein was elevated and off of the vein with a split and roll technique. The packet was dissected laterally to the circumflex vein and distally to the obturator nerve which was preserved. The proximal aspect of the packet was carried towards the bifurcation of the iliac vessels. A combination of monopolar and bipolar cautery were used to assist with control. After completing the dissection on both sides, the packets were collected and passed off of the table as specimens labeled "pelvic lymph nodes". My attention then returned to the prostate, with identification of the bladder neck aided by gentle traction on the Huber catheter and lateral to medial pressure at the presumed level of the bladder neck with the robotic instruments. An anterior cystotomy was made, the Huber balloon deflated and the catheter guided through the incision to allow anterior retraction. I attempted to preserve maximal bladder neck musculature as I circumferentially dissected around the bladder neck. After incision through the posterior aspect of the mucosa, the dissection was carried through detrusor muscle until the bilateral ampullae of the vasa were identified. The previously dissected vasa and SVs were brought through the incision and used to elevated the prostate anteriorly. A posterior plane behind the prostate was then developed - splitting Denonvilliers's fascia. This dissection was carried as far as possible towards the apex as well as far as possible laterally. An incision in the lateral prostatic fascia was then made bilaterally to facilitate control of the vascular pedicles and preservation of the nerve bundles. Vasculature running along the posterior/lateral aspect of the prostate was preserved as well as the tissue containing the nerves. The pedicles were then controlled with a series of Weck clips. The apical attachments of the prostate were remaining at that stage. The DVC was divided after control with bipolar cautery over the prostate. Continuous ins pection from anterior and lateral views allowed me to closely follow the apical contour of the prostate and maximally preserve urethral length and tissue. The prostate was entirely freed at that point, and collected in an EndoCatch bag before being moved out of the field of vision. Hemostasis was confirmed and anastomosis of the bladder and urethra was completed utilizing a double armed V- Lock stitch. A new Huber catheter was inserted and the anastomosis tested with irrigation. There was no evidence of leak. A anshul style stitch was placed bilaterally to functionally marsupialize the area of the lymph node dissection. The robot was undocked, the specimen extracted through expansion of the jazlyn- umbilical camera port. The fascia was closed with a series of 0-PDS figure of 8 stitches. The right behavioral modification assistant port was closed in two layers - with a figure of 8 0-Vicryl to reapproximate the fascia followed by 4-0 Monocryl to close the skin. Monocryl was used to close all other skin incisions. All wounds were dressed with Dermabond. The case was concluded and the patient taken to the PACU in stable condition. Karol Madrid assisted from incision to closure I attest to the content of the Intraoperative Record and any orders documented therein. Any exceptions are noted below.
[2022-06-12 11:17] LABS: Hematocrit (blood only) 36.3 % (40.1-51.0); Hemoglobin 12.6 g/dl (14.0-18.0); Mean Corpuscular Hemoglobin 30.8 pg (25.0-34.0); Mean Corpuscular Hgb Conc 34.7 g/dL (32.0-36.0); Mean Corpuscular Volume 88.8 fL (80.0-100.0); Mean Platelet Volume 9.2 fL (9.4-12.4); Platelet Count 187 K/uL (130-400); RDW Coefficient of Variation 12.7 % (11.5-14.5); RDW Standard Deviation 41.5 fL (36.4-46.3); Red Blood Count 4.09 M/uL (4.63-6.08); White Blood Count 8.75 K/ul (4.8-10.8)
--- NOTE | 2022-06-12 11:28 | Anesthesiology Progress Note ---
Date of Service June 12, 2022 Anesthesia Post Procedure Vital Signs Vital Signs: Temp Pulse Pulse Resp BP Pulse Ox O2 Del Method 06/12/22 11:15 60 16 153/72 H 94 Nasal Cannula 06/12/22 11:00 96.8 F L 60 13 139/87 93 Nasal Cannula 06/12/22 10:50 63 12 137/88 93 Room Air 06/12/22 10:40 66 14 147/64 H 95 Oxymask 06/12/22 10:30 96.8 F L 63 19 134/65 94 Oxymask 06/12/22 05:43 98.2 F 61 20 143/67 H 95 Room Air O2 Flow Rate 06/12/22 11:15 2 06/12/22 11:00 2 06/12/22 10:50 06/12/22 10:40 10 06/12/22 10:30 10 06/12/22 05:43 Pain Intensity Penis: Pain Intensity: 2 Transfer of Care Handoff Completed per policy Notes Mental Status: alert / awake / arousable and participated in evaluation Patient Amnestic to Procedure: Yes Nausea / Vomiting: adequately controlled Pain: adequately controlled Airway Patency, RR, SpO2: stable & adequate BP & HR: stable & adequate Hydration State: stable & adequate Anesthetic Complications: no major complications apparent and Pt Satisfied with anesthetic care
[2022-06-12 11:35] LABS: Basophils # (auto) 0.02 K/uL (0-0.2); Basophils % (auto) 0.2 %; Eosinophils # (auto) 0.04 K/uL (0-0.50); Eosinophils % (auto) 0.5 %; Immature Granulocytes # (auto) 0.02 K/uL (0.00-0.02); Immature Granulocytes % (auto) 0.2 %; Lymphocytes # (auto) 0.65 K/uL (1.2-3.4); Lymphocytes % (auto) 7.4 %; Monocytes # (auto) 0.11 K/uL (0.24-0.82); Monocytes % (auto) 1.3 %; Neutrophils # (auto) 7.91 K/uL (1.4-6.5); Neutrophils % (auto) 90.4 %
[2022-06-12 11:46] LABS: BUN Creatinine Ratio 24.5 (10-20); Calcium 8.7 mg/dl (8.5-10.1); Creatinine Clr Calc Pharmacy 77.3 ml/min; Est GFR (African American) 86.5 ml/min; Est GFR (Non-African American) 74.6 ml/min; Potassium 4.6 mmol/L (3.5-5.1)
[2022-06-12] MEDS ORDERED: MoRPHine SULFATE 2 MG/ML CARP IV PRN (11:49)
[2022-06-12] MEDS ORDERED: oxyCODONE HCL IR 5 MG TAB (IMMEDIATE RELEASE) PO PRN ×2 (11:49)
[2022-06-12] MEDS ORDERED: MoRPHine SULFATE 4 MG/ML 1 ML CARP\\VIAL IV PRN (11:49)
[2022-06-12] MEDS: PANTOprazole 40 MG TAB PO SCH (12:36)
[2022-06-12] MEDS: LACTATED RINGER'S 1,000 ML IV SCH ×2 (12:36→19:29)
[2022-06-12] MEDS: ceFAZolin 2000MG 2,000 MG/15 ML SYR IV SCH ×2 (15:21→22:22)
[2022-06-12] MEDS: ACETAMINOPHEN 325 MG TAB PO PRN (15:24)
[2022-06-12] MEDS ORDERED: SERTRALINE HCL 100 MG TABLET PO SCH (21:00)
[2022-06-12] MEDS: DOCUSATE SODIUM 100 MG CAP PO SCH (21:37)
[2022-06-12] MEDS: buPROPion SR 150 MG TABCR PO SCH (21:37)
[2022-06-12] MEDS: HEPARIN SOD 5,000 UNIT/0.5 ML VIAL SQ SCH (21:37)
[2022-06-13] MEDS: LACTATED RINGER'S 1,000 ML IV SCH (05:43)
[2022-06-13] MEDS: ACETAMINOPHEN 325 MG TAB PO PRN (05:43)
[2022-06-13 06:58] LABS: Basophils # (auto) 0.02 K/uL (0-0.2); Basophils % (auto) 0.2 %; Eosinophils # (auto) 0.04 K/uL (0-0.50); Eosinophils % (auto) 0.4 %; Hematocrit (blood only) 34.9 % (40.1-51.0); Hemoglobin 11.9 g/dl (14.0-18.0); Immature Granulocytes # (auto) 0.04 K/uL (0.00-0.02); Immature Granulocytes % (auto) 0.4 %; Lymphocytes % (auto) 23.5 %; Mean Corpuscular Hemoglobin 30.1 pg (25.0-34.0); Mean Corpuscular Hgb Conc 34.1 g/dL (32.0-36.0); Mean Corpuscular Volume 88.1 fL (80.0-100.0); Mean Platelet Volume 9.2 fL (9.4-12.4); Monocytes # (auto) 0.81 K/uL (0.24-0.82); Monocytes % (auto) 9.1 %; Neutrophils # (auto) 5.93 K/uL (1.4-6.5); Neutrophils % (auto) 66.4 %; Platelet Count 184 K/uL (130-400); RDW Coefficient of Variation 12.4 % (11.5-14.5); RDW Standard Deviation 40.1 fL (36.4-46.3); Red Blood Count 3.96 M/uL (4.63-6.08); White Blood Count 8.94 K/ul (4.8-10.8)
[2022-06-13 07:19] LABS: BUN Creatinine Ratio 15.9 (10-20); Calcium 8.7 mg/dl (8.5-10.1); Creatinine Clr Calc Pharmacy 96.1 ml/min; Est GFR (African American) 104.6 ml/min; Est GFR (Non-African American) 90.2 ml/min; Potassium 3.8 mmol/L (3.5-5.1)
[2022-06-13] MEDS ORDERED: CHOLESTYRAMINE LIGHT 4 GM PKT PO SCH (08:00)
--- NOTE | 2022-06-13 08:07 | Urology Progress Note ---
Date of Service June 13, 2022 Assessment & Plan (1) Adenocarcinoma of prostate: Plan: Postop day #1 status post robotic prostatectomy Recovery very much on pace Continue ambulation Advance diet Discharge home after breakfast Admission and Anticipated Discharge Date Admission Date: June 12, 2022 Subjective Doing extremely well after his prostatectomy yesterday No significant pain or discomfort Has been ambulatory Urine has been generally clear Labs are stable Physical Exam Physical Exam: Incisions all appropriate, no bruising, etc. Results & Data ([facility]) Vital Signs (Past 12 Hours) Vital Signs Temp Pulse Resp BP Pulse Ox O2 Del Method 06/13/22 07:29 37.0 C 56 L 17 123/65 96 Room Air 06/13/22 03:32 37.1 C 71 16 126/62 96 Room Air 06/12/22 21:40 37.0 C 60 16 149/69 H 95 Room Air PG Care Time/CCT Total # of Minutes Spent Total Time Spent with Patient: Total time spent is greater than 50% in coordination of care (as documented) at patient's floor/unit and/or counseling patient: Coding Level of Care Code None Diagnoses Adenocarcinoma of prostate C61
[2022-06-13] MEDS: buPROPion SR 150 MG TABCR PO SCH (08:40)
[2022-06-13] MEDS: PANTOprazole 40 MG TAB PO SCH (08:40)
[2022-06-13] MEDS: HEPARIN SOD 5,000 UNIT/0.5 ML VIAL SQ SCH (08:41)
[2022-06-13] MEDS: DOCUSATE SODIUM 100 MG CAP PO SCH (08:42)
[2022-06-13] MEDS ORDERED: ROSUVASTATIN CALCIUM 5 MG TAB PO SCH (09:00)
[2022-06-13] MEDS ORDERED: VALSARTAN 80 MG TAB PO SCH (09:00)
--- NOTE | 2022-06-13 13:12 | Discharge Summary ---
Date of Service June 13, 2022 Admission HPI Per Admitting Provider 71-year-old male with prostate cancer who presents for robotic prostatectomy Admission Exam Per Admitting Provider Constitutional: well developed and well nourished Neck: neck nontender Respiratory: normal respiratory effort; no respiratory distress and does not use accessory muscles Cardiovascular: Rate/Rhythm: regular rate Vessels: radial pulses present Extremities: no edema Gastrointestinal (Abdomen): Inspection/Auscultation: abdomen normal to inspection Percussion/Palpation: abdomen soft; abdomen nontender and no guarding Musculoskeletal: Head/Neck/Chest: normocephalic and head atraumatic Extremities: extremities normal to inspection Skin: no rashes and no lesions Trauma: no evidence of skin trauma Neurologic: awake; not obtunded Speech / Cognition: normal speech Motor/Sensory: no tremor Psychiatric: Orientation: alert and oriented x 3 Genitourinary: no CVA tenderness Lymphatic: no lymphadenopathy Principal Diagnosis Prostate cancer Discharge Exam Constitutional no acute distress Respiratory normal respiratory effort Gastrointestinal (Abdomen) Incisions appropriate Neurologic awake Psychiatric A+Ox3, euthymic affect Genitourinary Gill catheter intact, draining clear yellow urine Discharge Data Allergies Allergy/AdvReac Type Severity Reaction Status Date / Time amlodipine [From Lotrel] AdvReac Unknown Cough Verified 06/12/22 05:37 atorvastatin AdvReac Unknown myalgia Verified 06/12/22 05:37 benazepril [From Lotrel] AdvReac Unknown Cough Verified 06/12/22 05:37 pravastatin [From Pravachol] AdvReac Unknown myalgia Verified 06/12/22 05:37 telmisartan [From Micardis] AdvReac Unknown Headache Verified 06/12/22 05:37 Procedures Performed Operation Date: 06/12/22 07:00 Actual Procedures p Robotic Assisted Laparoscopic Radical Retropubic Prostatectomy, Bilateral Pelvic Lymph Node Dissection(Not Applicable) - Cleveland Mars MD Hospital Course (1) Adenocarcinoma of prostate: Plan 71-year-old male admitted status post robotic prostatectomy. Patient tolerated procedure well. No acute issues postoperatively. Patient was stable overnight with good urine output. Labs appropriate. Minimal pain. Ambulated without issue. Tolerated diet. Patient subsequently discharged home on postop day #[address] catheter in [address]. He was in stable condition at time of discharge. Postop follow-up appointments in place. Total Time Total Time Spent Total Time Spent (In Minutes): 15 Discharge Plan Discharge Items Patient Disposition: Home - Self-Care Reason For Visit: Prostate Cancer Discharge Diagnosis: Prostate cancer Activity: Per Instructions section Lifting: No more than 25 pounds Bathing Comment: Okay to shower. No tub baths or soaks. Sexual Activity: Wait until after follow-up appointment Exercise/Sports: Wait until after follow-up appointment Driving/Machine Use: Do not drive if taking prescription pain medication. Non-emergency contact: Surgeon and Urologist Call non-emergency contact if: you have any medication questions, your pain is not controlled, you have a fever, your temperature is above 101, your wound has increased redness, your wound has increased drainage and your wound pain has increased Follow-up/Referrals: Carlos Bojorquez MD [Primary Care Provider] - Cleveland Mars MD [Physician] - 06/25/22 9:00 am [facility],Nurse [FAKE FOR SCHEDULES] - 06/19/22 10:00 am Diet: Regular Addtl Attending Provider Instructions: Please take all medications as prescribed and keep all follow-ups as scheduled. Please call our office at [phone] with any questions, concerns or need to reschedule appointments for any reason. We are happy to assist you We have sent an antibiotic to your pharmacy of choice. Please begin antibiotic as prescribed the day BEFORE your catheter removal at [facility]. Please continue antibiotic until complete. Activity: We recommend having someone with you for the first few days after surgery to help care for you. For the first 2 weeks after surgery, we would like you to get up and walk around your house. However, we recommend limit physical activity that would increase your heart rate. This will allow your body to rest and heal. Take naps if you feel tired. Don't lift anything heavier than 25 pounds, mow the law or ride a bicycle until your follow-up appointment. Please avoid long car rides. Home Care: Unless directed otherwise, drink 6 to 8 glasses of water a day (enough to keep your urine light colored). This will also help keep a healthy flow of urine. We recommend using a stool softener for the first two weeks to avoid constipation. Gill Catheter or Suprapubic Catheter care: Keep the catheter well secured with either a leg back or leg strap with large bag. Empty your bag when it's about half full. You may notice some blood in the bag. This is normal after surgery and while the catheter is in place. Use mild soap (such as Dove or Dial) and water to wash the catheter and the head of your penis daily, or more frequently if needed. Return to your normal diet, we encourage good protein intake to promote healing. You may shower as normal. Please avoid tub baths or soaking until catheter removed and incisions well healed. Wearing sweat pants while you have the catheter is recommended, they will be more comfortable. Follow-up Your follow up appointments for having your catheter removed, and follow up with your physician should already be scheduled. If you have any questions regarding this, please contact our office. Your final pathology report will be discussed at your physician follow-up appointment. Call [facility] at [phone] right away if you have any of the following: Chest pain or trouble breathing (call [phone] or go to the hospital) Fever of 101F or higher, uncontrolled vomiting Heavy bleeding, clots, or bright red blood from the catheter Catheter that falls out or stops draining Foul-smelling discharge from your catheter Redness, swelling, warmth, or increased pain at your incision site Drainage, pus, or bleeding from your incision Pending Studies at Discharge: Yes (Pathology) Stand-Alone Forms: My [facility] [employer], Smoking Cessation Medications and DC Order Prescriptions: New ciprofloxacin HCl 500 mg tablet 500 mg PO BID 3 Days Qty: 6 0RF Rx Instructions: Start 1 day prior to catheter removal docusate sodium [Colace] 100 mg capsule 100 mg PO BID Qty: 60 0RF Rx Instructions: Take twice daily for 2 weeks, then as needed thereafter Continued cholestyramine (with sugar) 4 gram powder in packet See Rx Instructions .ROUTE .COMPLEX Qty: 180 0RF Dose Instruction: TAKE 4G BY MOUTH DAILY ADMINISTER W/MEAL AVOID OTHER MEDS WITHIN 1HR BEFORE OR 4-6HR AFTER DOSE Rx Instructions: TAKE 4G BY MOUTH DAILY ADMINISTER W/MEAL AVOID OTHER MEDS WITHIN 1HR BEFORE OR 4-6HR AFTER DOSE bupropion HCl 150 mg tablet sustained-release 12 hr 150 mg PO BID Qty: 180 3RF omeprazole 40 mg capsule,delayed release(DR/EC) See Rx Instructions .ROUTE .COMPLEX Qty: 90 3RF Dose Instruction: TAKE ONE CAPSULE BY MOUTH EVERY DAY Rx Instructions: TAKE ONE CAPSULE BY MOUTH EVERY DAY sertraline 100 mg tablet See Rx Instructions .ROUTE .COMPLEX Qty: 180 1RF Dose Instruction: TAKE TWO TABLETS BY MOUTH AT BEDTIME Rx Instructions: TAKE TWO TABLETS BY MOUTH AT BEDTIME rosuvastatin [Crestor] 5 mg tablet 5 mg PO QAM Qty: 90 1RF amlodipine 10 mg tablet 10 mg PO QAM Qty: 90 3RF aspirin [Adult Aspirin Regimen] 81 mg tablet,delayed release (DR/EC) 81 mg PO QAM cholecalciferol (vitamin D3) 1,000 unit capsule 1,000 units PO QAM ascorbic acid (vitamin C) 500 mg capsule 500 mg PO QAM omega-3 fatty acids Capsule 1,000 mg PO QAM valsartan 160 mg tablet 160 mg PO QAM Discharge Orders: Discharge Order (Routine); Ordered 06/13/22 Ordered By: Karol Leslie/Other Patient Handouts: Indwelling Urinary Catheter Dc Admission Data Admit Date/Time: 06/12/22 10:43 Attending Provider: Cleveland Mars Admit Provider: Cleveland Mars Primary Care Provider: Carlos Bojorquez Other Interventions: Discharge Summary Assessment (RN) Last Done: 06/13/22 13:10 Coding Level of Care Code D/C DAY MANAGEMENT <30 MINS Diagnoses Adenocarcinoma of prostate C61
== END 2022-06-13 14:58 | disposition home or self-care (01) ==
LOC: ASU 05:24 → INTOOBSV 10:43 → PACUINP 10:43 → 3E 13:42
DX: Z79.899 Other long term (current) drug therapy; Z79.82 Long term (current) use of aspirin; Z88.8 Allergy status to other drugs, medicaments and biological substances; Z86.16 Personal history of COVID-19; C61 Malignant neoplasm of prostate